=== PATIENT | female | born 1950 | race Caucasian/White ===

== ENCOUNTER 2023-06-16 12:45 | Emergency (ER) | payer MEDICARE, SELFPAY ==
[2023-06-16] VITALS (21 sets, daily range): BP systolic 178–190; BP diastolic 86–102; PULSE 85–108; RESP 13–31; TEMP 37; O2SAT 97–99; BMI 19.2
--- NOTE | 2023-06-16 13:08 | XR_ITS ---
The [address] [address] Patient Name: CRISTINA MOORE MRN: [id number] date: 1950 Sex: F Assigned Patient Location: ER Current Patient Location: ER Accession/Order Number: [id number] Exam Date: 06/16/2023 13:35 Report Date: 06/16/2023 13:57 At the request of: AKIN LONGORIA Procedure: XR chest 1V EXAM: XR chest 1V HISTORY: hypertension COMPARISON: None. TECHNIQUE: Single view of the chest FINDINGS: Left chest cardiac device and leads. Heart size normal. No focal consolidation, pleural effusion, pulmonary congestion or pneumothorax. Surgical clips projecting over the right chest. Multiple external leads. Spinal hardware. Atherosclerotic calcification of the aorta. XR/XR chest 1V IMPRESSION: No acute findings. Electronically authenticated by: VANESSA BYERS Date: 06/16/2023 13:57
--- NOTE | 2023-06-16 13:08 | ECG_ITS ---
The [facility] Test Date: 2023-06-16 Pat Name: CRISTINA MOORE Department: Room: - Gender: Female Client Service Coordinator: : 1950 Requested By: CHRISTA BARBOUR Order Number: [id number] Reading MD: SYL TODD Measurements Intervals [place] Rate: 104 P: 267 SD: 266 QRS: -6 QRSD: 84 T: 56 QT: 328 QTc: 389 Interpretive Statements Sinus tachycardia 2231 First degree AV block 6230 Left atrial enlargement 9150 abnormal ECG No previous ECG available for comparison Electronically Signed On 06-19-2023 7:12:16 EDT by SYL TODD
--- NOTE | 2023-06-16 13:08 | ED.GENADUL1 ---
Documented by User: BRYAN Martinez 06/16/23 15:14 HPI - General Adult General Chief complaint: Chest Pain Stated complaint: HIGH BLOOD PRESSURE- SENT BY DR. CORNELL Time Seen by Provider: 06/16/23 12:46 Source: patient and family Mode of arrival: Wheelchair Limitations: no limitations History of Present Illness HPI narrative: patient is a 72-year-old female presents to the Emergency Room with her at the request of her arthritis doctor for evaluation of hypertension. Patient states she chronically has hypertension. She reports no chest pain or shortness of breath, states she is agitated and does not even want to be here. Patient reports generalized body aches which are chronic for her. She reports been on medication for hypertension taking regularly, and sees family doctor locally for follow-up. She currently has no symptoms but given the elevated blood pressure at the arthritis doctors president and chief executive officer was recommended to come to the Emergency Room for evaluation and to have her hypertension treated if needed. Patient's sitting at bedside has no other concerns. Patient denies any headache or visual disturbance denies abdominal pain. Related Data Home Medications Medication Instructions Recorded Confirmed allopurinol 100 mg tablet 100 mg PO DAILY 06/16/23 06/16/23 buspirone 10 mg tablet 10 mg PO TID PRN anxiety 06/16/23 06/16/23 carvedilol 25 mg tablet 25 mg PO Q12H 06/16/23 06/16/23 doxazosin 1 mg tablet 1 mg PO DAILY 06/16/23 06/16/23 ferrous sulfate 325 mg (65 mg 325 mg PO DAILY 06/16/23 06/16/23 iron) tablet (FeroSul) folic acid 1 mg tablet 1 mg PO DAILY 06/16/23 06/16/23 hydralazine 25 mg tablet 25 mg PO Q8H 06/16/23 06/16/23 hydrocodone 10 mg-acetaminophen 2 tab PO Q6H 06/16/23 06/16/23 325 mg tablet hydroxychloroquine 200 mg tablet 200 mg PO DAILY 06/16/23 06/16/23 loratadine 10 mg tablet mg 06/16/23 megestrol 400 mg/10 mL (40 mg/mL) 400 mg PO DAILY 06/16/23 06/16/23 oral suspension mirtazapine 15 mg tablet 15 mg PO DAILY 06/16/23 06/16/23 montelukast 10 mg tablet 10 mg PO DAILY 06/16/23 06/16/23 nitroglycerin 0.3 mg sublingual 0.3 mg sublingual Q5M PRN chest 06/16/23 06/16/23 tablet pain ropinirole 4 mg tablet 4 mg PO DAILY 06/16/23 06/16/23 trazodone 50 mg tablet 50 mg PO BEDTIME 06/16/23 06/16/23 venlafaxine 37.5 mg 37.5 mg PO DAILY 06/16/23 06/16/23 capsule,extended release 24 hr Allergies Allergy/AdvReac Type Severity Reaction Status Date / Time Unable to Assess Allergy Verified 06/16/23 13:01 Review of Systems ROS Constitutional Denies: fever or chills Eyes Denies: change in vision Ears, nose, mouth, and throat Denies: throat pain or neck pain Cardiovascular Denies: chest pain Respiratory Denies: shortness of breath, cough or wheezing Gastrointestinal Denies: abdominal pain, nausea or vomiting Musculoskeletal Reports: joint pain Integumentary/Breast Denies: rash, itching or non-healing lesion Neurological Denies: headache Psychiatric Reports: other; Denies: anxiety or mood swings Hematologic/Lymphatic Denies: easy bruising Allergic/Immunologic Denies: hives PFSH PFSH Social History Smoking status: Former smoker Exam Narrative Exam Narrative: Nurses notes and vital signs reviewed and patient is not hypoxic. General: The patient much older than stated age. 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 Skin: Warm, dry, no pallor noted.bronzing noted of the lower extremities with minimal edema and chronic skin changes with likely peripheral vascular disease. Head: Normocephalic, atraumatic Neck: Supple, trachea mid-line, no tenderness, no lymphadenopathy Eye: Pupils are equal, round and reactive to light, EOMI, patient wearing glasses reports no visual disturbance Ears, Nose, Mouth, and Throat: external exam unremarkable Cardiovascular: Regular Rate and Rhythm Respiratory: Patient is in no distress, no accessory muscle use, lungs are clear to auscultation, no wheezing, rales or rhonchi. Chest Wall: no tenderness Back: non-tender, no CVA tenderness Musculoskeletal: normal ROM,generalized arthralgias. no swelling, no joint warmth or erythema GI: Normal bowel sounds, no tenderness to palpation, no masses appreciated. No rebound, guarding, or rigidity noted. Neurological: A&O x4 Psychiatric: Cooperative Constitutional Vital Signs, click to edit/add: Last Vital Signs Temp 98.6 F 06/16/23 12:57 Pulse 89 06/16/23 15:00 Resp 17 06/16/23 15:00 BP 182/86 H 06/16/23 15:13 Pulse Ox 99 06/16/23 15:10 O2 Del Method Room Air 06/16/23 13:44 Course Vital Signs Vital signs: Vital Signs Temperature 98.6 F 06/16/23 12:57 Pulse Rate 96 H 06/16/23 12:57 Respiratory Rate 16 06/16/23 12:57 Pulse Oximetry 99 06/16/23 12:57 Oxygen Delivery Method Room Air 06/16/23 12:57 Temperature 98.6 F 06/16/23 12:57 Pulse Rate 89 06/16/23 15:00 Respiratory Rate 17 06/16/23 15:00 Blood Pressure 182/86 H 06/16/23 15:13 Pulse Oximetry 99 06/16/23 15:10 Oxygen Delivery Method Room Air 06/16/23 13:44 Medical Decision Making MDM Narrative Medical decision making narrative: patient presents relatively asymptomatic for evaluation of hypertension Dr. Cornell- Cardiology, no report was given of how high her blood pressure was. Patient admits that she does not want to be here. She was agreeable to IV attempt but unsuccessful ?2 and patient only consenting to lab draw for analysis. Patient medications reviewed and she did not feel she took her mid-day hydralazine which was given at the bedside. Patient states she has chronic hypertension. Her laboratory studies were reviewed along with her chest x-ray, concerning for acute kidney injury. We did not have any immediate labs for comparison. We discussed her elevated potassium, creatinine, CK-MB and myoglobin along with anemia. Likely acute on chronic exacerbations. Discussed treatment options with attempt for IV access for IV fluid hydration, admission to our facility or transfer to a facility for nephrology evaluation and potential dialysis if needed. The patient adamantly refuses any further treatment or care stating that she would like to be discharged home. She verbalized a wish to be discharged home against medical advice. I discussed this personally with the patient's and her personal physician Dr. Toussaint at 3pm who recommended that she be admitted for IV fluids. The patient was made aware of his recommendations but still declined further treatment or admission. We discussed the patient's discharged against medical advice in layman's terms. The patient verbalizes understanding with the relevant information and medical advise presented for her care plan as noted above. The patient was furthermore able to appreciate the situation and the possible consequences while reasoning through the recommended treatment options for her care. Patient adamantly states she will never gone dialysis and is aware of the risk of aand disability. She would like to have a personal discussion with her family and her family doctor regarding DNR orders to reflect this wish. By communicating the patient's treatment plan and follow-up along with personal choices that may result in or disability patient verbalized that should she change her mind she would return to the Emergency Room for evaluation and treatment as discussed and offered, but respectively declined. Patient is alert and oriented ?4 and patient's at bedside supportive of her decision. Lab Data Labs: Lab Results 06/16/23 Range/Units 13:48 WBC 5.1 (4.0-11.0) 10^3/uL RBC 3.20 L (4.20-5.40) 10^6/uL Hgb 9.6 L (12.0-16.0) g/dL Hct 30.2 L (36.0-48.0) % MCV 94.4 (81.0-99.0) fL MCH 30.0 (26.7-34.0) pg MCHC 31.8 (29.9-35.2) g/dL RDW 15.5 H (11.0-15.0) % Plt Count 281 (150-450) 10^3/uL MPV 10.4 (9.5-13.5) fL Seg Neuts % (Manual) 86.0 Lymphocytes % (Manual) 11.0 L (20.5-60.0) % Monocytes % (Manual) 2.0 (1.7-12.0) % Eosinophils % (Manual) 0.0 L (0.9-7.0) % Basophils % (Manual) 1.0 (0.2-2.0) % Neutrophils # (Manual) 4.38 (1.4-6.5) 10^3/uL Lymphocytes # (Manual) 0.56 L (1.20-3.80) 10^3/uL Monocytes # (Manual) 0.10 L (0.30-0.80) 10^3/uL Eosinophils # (Manual) 0.00 (0.00-0.70) 10^3/uL Basophils # (Manual) 0.05 (0.00-0.10) 10^3/uL Anisocytosis 1+ PT 9.8 (9.0-11.6) sec INR <0.93 APTT 25.6 (22.3-36.2) sec Sodium 140 (136-145) mmol/L Potassium 5.8 H (3.5-5.1) mmol/L Chloride 107 (98-107) mmol/L Carbon Dioxide 16.9 L (21.0-32.0) mmol/L Anion Gap 21.9 BUN 79.0 H* (7.0-18.0) mg/dL Creatinine 3.19 H (0.55-1.02) mg/dL Est GFR ( Amer) 17 L (>=60) Est GFR (Non-Af Amer) 14 L (>=60) BUN/Creatinine Ratio 24.8 Glucose 106 (74-106) mg/dL Calcium 8.4 L (8.5-10.1) mg/dL Total Bilirubin 0.4 (0.2-1.0) mg/dL AST 23 (15-37) U/L ALT 29 (14-59) U/L Alkaline Phosphatase 92 (46-116) U/L CK-MB (CK-2) 4.74 H* (<=3.60) ng/mL Myoglobin 211 H (9-82) ng/mL Troponin I High Sens 16.2 (4.0-51.3) pg/mL Total Protein 6.9 (6.4-8.2) g/dL Albumin 3.9 (3.4-5.0) g/dL Globulin 3.0 g/dL Albumin/Globulin Ratio 1.3 TSH 1.856 (0.358-3.740) uIU/mL Imaging Data Chest x-ray: Radiologist's impression: At the request of: AKIN LONGORIA Procedure: XR chest 1V EXAM: XR chest 1V HISTORY: hypertension COMPARISON: None. TECHNIQUE: Single view of the chest FINDINGS: Left chest cardiac device and leads. Heart size normal. No focal consolidation, pleural effusion, pulmonary congestion or pneumothorax. Surgical clips projecting over the right chest. Multiple external leads. Spinal hardware. Atherosclerotic calcification of the aorta. IMPRESSION: No acute findings. Electronically authenticated by: VANESSA BYERS Date: 06/16/2023 13:57 Discharge Plan Discharge Chief Complaint: Chest Pain Clinical Impression: Left against medical advice, Acute renal failure, Hypertension, Serum potassium elevated Patient Disposition: Home, Self-Care Time of Disposition Decision: 15:06 Condition: Serious Mode of Transportation: Private Vehicle Prescriptions / Home Meds: No Action allopurinol 100 mg tablet 100 mg PO DAILY buspirone 10 mg tablet 10 mg PO TID PRN (Reason: anxiety) carvedilol 25 mg tablet 25 mg PO Q12H doxazosin 1 mg tablet 1 mg PO DAILY ferrous sulfate [FeroSul] 325 mg (65 mg iron) tablet 325 mg PO DAILY folic acid 1 mg tablet 1 mg PO DAILY hydralazine 25 mg tablet 25 mg PO Q8H hydrocodone-acetaminophen 10-325 mg tablet 2 tab PO Q6H hydroxychloroquine 200 mg tablet 200 mg PO DAILY megestrol 400 mg/10 mL (40 mg/mL) suspension 400 mg PO DAILY loratadine 10 mg tablet mirtazapine 15 mg tablet 15 mg PO DAILY montelukast 10 mg tablet 10 mg PO DAILY nitroglycerin 0.3 mg tablet, sublingual 0.3 mg sublingual Q5M PRN (Reason: chest pain) ropinirole 4 mg tablet 4 mg PO DAILY venlafaxine 37.5 mg capsule,extended release 24hr 37.5 mg PO DAILY trazodone 50 mg tablet 50 mg PO BEDTIME Instructions: Acute Kidney Injury (DC), Hypertension (ED) Additional Instructions: Per Dr. Toussaint please contact his office Monday to discuss follow-up plans patient declines further treatment here today or admission or transfer to tertiary facility for renal evaluation and patient signed out for discharged against medical advice Stand Alone Forms: Portal Instructions Referrals: CHRISTA TOUSSAINT [Primary Care Provider] - As soon as possible Discharge Date/Time: 06/16/23 15:16 Documented by User: Ginny Bardales MD 06/16/23 16:37 HPI - General Adult General Chief complaint: Chest Pain Stated complaint: HIGH BLOOD PRESSURE- SENT BY DR. CORNELL Time Seen by Provider: 06/16/23 12:46 Related Data Home Medications Medication Instructions Recorded Confirmed allopurinol 100 mg tablet 100 mg PO DAILY 06/16/23 06/16/23 buspirone 10 mg tablet 10 mg PO TID PRN anxiety 06/16/23 06/16/23 carvedilol 25 mg tablet 25 mg PO Q12H 06/16/23 06/16/23 doxazosin 1 mg tablet 1 mg PO DAILY 06/16/23 06/16/23 ferrous sulfate 325 mg (65 mg 325 mg PO DAILY 06/16/23 06/16/23 iron) tablet (FeroSul) folic acid 1 mg tablet 1 mg PO DAILY 06/16/23 06/16/23 hydralazine 25 mg tablet 25 mg PO Q8H 06/16/23 06/16/23 hydrocodone 10 mg-acetaminophen 2 tab PO Q6H 06/16/23 06/16/23 325 mg tablet hydroxychloroquine 200 mg tablet 200 mg PO DAILY 06/16/23 06/16/23 loratadine 10 mg tablet mg 06/16/23 megestrol 400 mg/10 mL (40 mg/mL) 400 mg PO DAILY 06/16/23 06/16/23 oral suspension mirtazapine 15 mg tablet 15 mg PO DAILY 06/16/23 06/16/23 montelukast 10 mg tablet 10 mg PO DAILY 06/16/23 06/16/23 nitroglycerin 0.3 mg sublingual 0.3 mg sublingual Q5M PRN chest 06/16/23 06/16/23 tablet pain ropinirole 4 mg tablet 4 mg PO DAILY 06/16/23 06/16/23 trazodone 50 mg tablet 50 mg PO BEDTIME 06/16/23 06/16/23 venlafaxine 37.5 mg 37.5 mg PO DAILY 06/16/23 06/16/23 capsule,extended release 24 hr Allergies Allergy/AdvReac Type Severity Reaction Status Date / Time Unable to Assess Allergy Verified 06/16/23 13:01 [facility] Social History Smoking status: Former smoker Exam Constitutional Vital Signs, click to edit/add: Last Vital Signs Temp 98.6 F 06/16/23 12:57 Pulse 89 06/16/23 15:00 Resp 17 06/16/23 15:00 BP 182/86 H 06/16/23 15:13 Pulse Ox 99 06/16/23 15:10 O2 Del Method Room Air 06/16/23 13:44 Course Vital Signs Vital signs: Vital Signs Temperature 98.6 F 06/16/23 12:57 Pulse Rate 96 H 06/16/23 12:57 Respiratory Rate 16 06/16/23 12:57 Pulse Oximetry 99 06/16/23 12:57 Oxygen Delivery Method Room Air 06/16/23 12:57 Temperature 98.6 F 06/16/23 12:57 Pulse Rate 89 06/16/23 15:00 Respiratory Rate 17 06/16/23 15:00 Blood Pressure 182/86 H 06/16/23 15:13 Pulse Oximetry 99 06/16/23 15:10 Oxygen Delivery Method Room Air 06/16/23 13:44 Medical Decision Making MDM Narrative Medical decision making narrative: patient presents relatively asymptomatic for evaluation of hypertension Dr. Cornell- Cardiology, no report was given of how high her blood pressure was. Patient admits that she does not want to be here. She was agreeable to IV attempt but unsuccessful ?2 and patient only consenting to lab draw for analysis. Patient medications reviewed and she did not feel she took her mid-day hydralazine which was given at the bedside. Patient states she has chronic hypertension. Her laboratory studies were reviewed along with her chest x-ray, concerning for acute kidney injury. We did not have any immediate labs for comparison. We discussed her elevated potassium, creatinine, CK-MB and myoglobin along with anemia. Likely acute on chronic exacerbations. Discussed treatment options with attempt for IV access for IV fluid hydration, admission to our facility or transfer to a facility for nephrology evaluation and potential dialysis if needed. The patient adamantly refuses any further treatment or care stating that she would like to be discharged home. She verbalized a wish to be discharged home against medical advice. I discussed this personally with the patient's and her personal physician Dr. Toussaint at 3pm who recommended that she be admitted for IV fluids. The patient was made aware of his recommendations but still declined further treatment or admission. We discussed the patient's discharged against medical advice in layman's terms. The patient verbalizes understanding with the relevant information and medical advise presented for her care plan as noted above. The patient was furthermore able to appreciate the situation and the possible consequences while reasoning through the recommended treatment options for her care. Patient adamantly states she will never gone dialysis and is aware of the risk of and disability. She would like to have a personal discussion with her family and her family doctor regarding DNR orders to reflect this wish. By communicating the patient's treatment plan and follow-up along with personal choices that may result in or disability patient verbalized that should she change her mind she would return to the Emergency Room for evaluation and treatment as discussed and offered, but respectively declined. Patient is alert and oriented ?4 and patient's at bedside supportive of her decision. Attending physician attestation I have seen and evaluated this patient. I have reviewed the mid-level provider?s documentation medical decision making and treatment plan. I agree with the mid-level provider?s assessment, and plan. I discussed with patient the need to be hospitalized. She stated she has seen a engineering systems analyst in the past but Dr. Toussaint is managing her chronic renal failure. Advised the patient she needs to be hospitalized for slow IV hydration and needs to be seen by a engineering systems analyst so we would have to transfer her to another facility where there is a engineering systems analyst available. Patient stated that she did not want to be transferred 20 facility and did not want to see a engineering systems analyst she does not want to be on dialysis. The patient what is her code status she stated she is a full code. I advised patient she would be a full code but no dialysis. She stated she needed more time to think about the code status with the family. I advised the patient I would be to no prior to admitting her here for IV hydration to see if there would be any improvement in her blood pressure and kidney function test and potassium level which she stated that she was not going to be hospitalized today and that she was going to leave. I advised the patient if she left the hospital without any treatment and has seen a specialist she could suffer permanent disability and . The patient stated she is willing to take that risk because she does not want to be hospitalized and she wants to leave right now. I advised the patient that she would have to leave against medical advice she left currently without any treatment or admission. This was discussed with the at the bedside. And this was discussed with Dr. Johnson who will also see the patient as an outpatient. I advised the patient and to return if she changes her mind. Patient left the emergency department after signing the AGAINST MEDICAL ADVICE paperwork with gratitude. Medical Records Medical records reviewed: Yes I reviewed the patient's medical records Lab Data Lab results reviewed: Yes I reviewed the patient's lab results Labs: Lab Results 06/16/23 Range/Units 13:48 WBC 5.1 (4.0-11.0) 10^3/uL RBC 3.20 L (4.20-5.40) 10^6/uL Hgb 9.6 L (12.0-16.0) g/dL Hct 30.2 L (36.0-48.0) % MCV 94.4 (81.0-99.0) fL MCH 30.0 (26.7-34.0) pg MCHC 31.8 (29.9-35.2) g/dL RDW 15.5 H (11.0-15.0) % Plt Count 281 (150-450) 10^3/uL MPV 10.4 (9.5-13.5) fL Seg Neuts % (Manual) 86.0 Lymphocytes % (Manual) 11.0 L (20.5-60.0) % Monocytes % (Manual) 2.0 (1.7-12.0) % Eosinophils % (Manual) 0.0 L (0.9-7.0) % Basophils % (Manual) 1.0 (0.2-2.0) % Neutrophils # (Manual) 4.38 (1.4-6.5) 10^3/uL Lymphocytes # (Manual) 0.56 L (1.20-3.80) 10^3/uL Monocytes # (Manual) 0.10 L (0.30-0.80) 10^3/uL Eosinophils # (Manual) 0.00 (0.00-0.70) 10^3/uL Basophils # (Manual) 0.05 (0.00-0.10) 10^3/uL Anisocytosis 1+ PT 9.8 (9.0-11.6) sec INR <0.93 APTT 25.6 (22.3-36.2) sec Sodium 140 (136-145) mmol/L Potassium 5.8 H (3.5-5.1) mmol/L Chloride 107 (98-107) mmol/L Carbon Dioxide 16.9 L (21.0-32.0) mmol/L Anion Gap 21.9 BUN 79.0 H* (7.0-18.0) mg/dL Creatinine 3.19 H (0.55-1.02) mg/dL Est GFR ( Amer) 17 L (>=60) Est GFR (Non-Af Amer) 14 L (>=60) BUN/Creatinine Ratio 24.8 Glucose 106 (74-106) mg/dL Calcium 8.4 L (8.5-10.1) mg/dL Total Bilirubin 0.4 (0.2-1.0) mg/dL AST 23 (15-37) U/L ALT 29 (14-59) U/L Alkaline Phosphatase 92 (46-116) U/L CK-MB (CK-2) 4.74 H* (<=3.60) ng/mL Myoglobin 211 H (9-82) ng/mL Troponin I High Sens 16.2 (4.0-51.3) pg/mL Total Protein 6.9 (6.4-8.2) g/dL Albumin 3.9 (3.4-5.0) g/dL Globulin 3.0 g/dL Albumin/Globulin Ratio 1.3 TSH 1.856 (0.358-3.740) uIU/mL Discharge Plan Discharge Chief Complaint: Chest Pain Clinical Impression: Left against medical advice, Acute renal failure, Hypertension, Serum potassium elevated Patient Disposition: Home, Self-Care Time of Disposition Decision: 15:06 Condition: Serious Mode of Transportation: Private Vehicle Prescriptions / Home Meds: No Action allopurinol 100 mg tablet 100 mg PO DAILY buspirone 10 mg tablet 10 mg PO TID PRN (Reason: anxiety) carvedilol 25 mg tablet 25 mg PO Q12H doxazosin 1 mg tablet 1 mg PO DAILY ferrous sulfate [FeroSul] 325 mg (65 mg iron) tablet 325 mg PO DAILY folic acid 1 mg tablet 1 mg PO DAILY hydralazine 25 mg tablet 25 mg PO Q8H hydrocodone-acetaminophen 10-325 mg tablet 2 tab PO Q6H hydroxychloroquine 200 mg tablet 200 mg PO DAILY megestrol 400 mg/10 mL (40 mg/mL) suspension 400 mg PO DAILY loratadine 10 mg tablet mirtazapine 15 mg tablet 15 mg PO DAILY montelukast 10 mg tablet 10 mg PO DAILY nitroglycerin 0.3 mg tablet, sublingual 0.3 mg sublingual Q5M PRN (Reason: chest pain) ropinirole 4 mg tablet 4 mg PO DAILY venlafaxine 37.5 mg capsule,extended release 24hr 37.5 mg PO DAILY trazodone 50 mg tablet 50 mg PO BEDTIME Instructions: Acute Kidney Injury (DC), Hypertension (ED) Additional Instructions: Per Dr. Toussaint please contact his office Monday to discuss follow-up plans patient declines further treatment here today or admission or transfer to tertiary facility for renal evaluation and patient signed out for discharged against medical advice Stand Alone Forms: Portal Instructions Referrals: CHRISTA TOUSSAINT [Primary Care Provider] - As soon as possible Discharge Date/Time: 06/16/23 15:16
[2023-06-16 13:54] LABS: Hematocrit 30.2 % (36.0-48.0); Hemoglobin 9.6 g/dL (12.0-16.0); Mean Corpuscular HGB Conc 31.8 g/dL (29.9-35.2); Mean Corpuscular Volume 94.4 fL (81.0-99.0); Mean Platelet Volume 10.4 fL (9.5-13.5); Platelet Count 281 10^3/uL (150-450); Red Cell Distribution Width 15.5 % (11.0-15.0); White Blood Count 5.1 10^3/uL (4.0-11.0)
[2023-06-16 14:18] LABS: Segmented Neut Absolute Manual 4.38 10^3/uL (1.4-6.5)
[2023-06-16 14:19] LABS: Anisocytosis 1+; Basophils Abs Manual 0.05 10^3/uL (0.00-0.10); Lymphocytes Absolute Manual 0.56 10^3/uL (1.20-3.80); Partial Thromboplastin Time 25.6 sec (22.3-36.2); Prothrombin Time 9.8 sec (9.0-11.6)
[2023-06-16 14:20] LABS: INR <0.93
[2023-06-16 14:22] LABS: Myoglobin 211 ng/mL (9-82)
[2023-06-16 14:23] LABS: Alanine Aminotransferase 29 U/L (14-59); Albumin Globulin Ratio 1.3; Albumin Level 3.9 g/dL (3.4-5.0); Alkaline Phosphatase 92 U/L (46-116); Anion Gap 21.9; Aspartate Amino Transferase 23 U/L (15-37); BUN Creatinine Ratio 24.8; Bilirubin Total 0.4 mg/dL (0.2-1.0); Calcium 8.4 mg/dL (8.5-10.1); Carbon Dioxide 16.9 mmol/L (21.0-32.0); Chloride 107 mmol/L (98-107); Estimated GFR (African America 17 (>=60); Estimated GFR (Non-African Ame 14 (>=60); Glucose 106 mg/dL (74-106); Potassium 5.8 mmol/L (3.5-5.1); Sodium 140 mmol/L (136-145); Thyroid Stimulating Hormone 1.856 uIU/mL (0.358-3.740); Total Protein 6.9 g/dL (6.4-8.2); Troponin I High Sensitivity 16.2 pg/mL (4.0-51.3)
[2023-06-16 14:34] LABS: Creatine Kinase MB 4.74 ng/mL (<=3.60)
[2023-06-16] MEDS: HYDRALAZINE HCL 25 MG TABLET PO (14:56)
== END 2023-06-16 15:16 | disposition left against medical advice (07) ==
PROVIDERS: Personal Emergency Response Attendant; Emergency Provider Emergency Medicine; PCP Internal Medicine
DX: I10 Essential (primary) hypertension (principal); N17.9 Acute kidney failure, unspecified; E87.5 Hyperkalemia; Z87.891 Personal history of nicotine dependence; Z53.29 Procedure and treatment not carried out because of patient's decision for other reasons; Z79.899 Other long term (current) drug therapy
CPT/HCPCS: 36415; 71045; 80053; 82553; 83874; 84443; 84484; 85027; 85610; 85730; 93005; 99285

== ENCOUNTER 2023-09-04 07:29 | Outpatient (RCR) | payer MEDICARE, SELFPAY ==
[2023-08-28 11:02] LABS: Hematocrit 28.6 % (36.0-48.0); Mean Corpuscular HGB Conc 31.5 g/dL (29.9-35.2); Mean Corpuscular Hemoglobin 30.2 pg (26.7-34.0); Mean Platelet Volume 10.4 fL (9.5-13.5); Platelet Count 222 10^3/uL (150-450); Red Blood Count 2.98 10^6/uL (4.20-5.40); Red Cell Distribution Width 14.2 % (11.0-15.0); White Blood Count 6.8 10^3/uL (4.0-11.0)
[2023-08-28 11:18] VITALS: BP 118/72; PULSE 102; RESP 20; TEMP 37.1; O2SAT 96
--- NOTE | 2023-08-28 11:27 | PC.NURSE ---
1033: Pt. to [facility] via w/c. Dropped off by daughter. Assisted pt. to chair. VSS. IV initiated to left forearm on first attempt without difficulty. Blood drawn from IV for ordered labs. Pt. tolerated with min. c/o. 1047: IV Injectafer initiated as ordered. Pt. without needs or c/o. 1113: IV Injectafer completed without s&s of adverse reaction. IV d/c'd, pressure to site. Pt. requests to remain in dept. Daughter unable to pick pt. up until noon. Pt given blanket and pillow for comfort. Denies needs.
[2023-08-28 11:56] LABS: Albumin Level 3.7 g/dL (3.4-5.0); Anion Gap 15.6; BUN Creatinine Ratio 23.5; Calcium 7.8 mg/dL (8.5-10.1); Carbon Dioxide 24.7 mmol/L (21.0-32.0); Chloride 105 mmol/L (98-107); Estimated GFR (African America 18 (>=60); Estimated GFR (Non-African Ame 14 (>=60); Glucose 133 mg/dL (74-106); Phosphorus 5.4 mg/dL (2.6-4.7); Potassium 4.3 mmol/L (3.5-5.1); Sodium 141 mmol/L (136-145)
[2023-08-28 12:13] LABS: Percent Iron Saturation 37.3 %
[2023-09-04 11:35] VITALS: BP 188/90; PULSE 88; RESP 20; TEMP 36.7; O2SAT 96
--- NOTE | 2023-09-04 13:20 | PC.NURSE ---
1050: Pt to [facility] via w/c accompanied by family. Assisted into recliner. Pt. relays feeling slightly nauseated today. Denies dyspnea or pain. BP elevated. Pt. relays taking scheduled BP med. #24 gauge IV initiated to left forearm on second attempt. Flushes easily without redness or edema. Pt. tolerates with min. c/o discomfort. 1055: IV Injectafer initiated at this time. Pt. given warm blanket. Declines beverage or snack. 1125: Injectafer infusion complete without s&s of adverse reaction. IV to SLF. Relays urgent need for bathroom. Taken to bathroom via w/c. 1130: Returns to room via w/c. IV d/c'd, pressure to site. Tolerated without c/o. 1135: D/c'd via w/c to car and home with family member.
== END 2023-09-05 23:59 | disposition home or self-care (01) ==
LOC: INF 07:29
PROVIDERS: PCP Internal Medicine; Visit Provider Internal Medicine
DX: I12.9 Hypertensive chronic kidney disease with stage 1 through stage 4 chronic kidney disease, or unspecified chronic kidney disease (principal); D63.1 Anemia in chronic kidney disease; N18.4 Chronic kidney disease, stage 4 (severe); N25.81 Secondary hyperparathyroidism of renal origin; M10.9 Gout, unspecified
CPT/HCPCS: 36415; 80069; 82728; 83540; 83550; 85027; 96365; J1439

== ENCOUNTER 2023-11-29 15:03 | Outpatient (OUT) | payer MEDICARE, SELFPAY ==
--- OUTSIDE RECORDS SUMMARY | 2023-11-29 15:10 | XMS_ITS | CCD ---
Author Name Unknown Address [address] [place] [address] Organization [facility] Care Team Providers [facility] Director Name Role Phone SO WHARTON Unavailable Unavailable ELDON TOUSSAINT Unavailable Unavailable ELDON TOUSSAINT Primary Care Unavailable MARCOS RAHMAN Referring Unavailable Rex Mckee Attending Unavailable Rex Mckee Admitting Unavailable ME Procedure Practitioner Unavailab LUIS ALBERTO Licea Surgeon Unavailable Unavailable Primary Care Provider Unavailabl e NO FAMILY, PHYSICIAN Primary Care Provider Unava ilable MD Pal Frank Attending Provider DR SARAH MEEHAN Consulting Unavailable NORBERT, DR GOODWIN Primary Care Unavailable HEMMER, DR CROW Thomas Attending Unavailable HEMDANIELA, DR CROW Thomas Admitting Unavailable HEMMER, DR CROW Thomas Consulting Unavailable TANYA TAYLOR Admitting Unavailable NEWTON, DR CHERRY Landa Consulting Unavailable NORBERT, DR GOODWIN Primary Care Unavailable TANYA TAYLOR Attending Unavailable TANYA TAYLOR Consulting Unavailable NO FAMILY, PHYSICIAN Primary Care Provider Unava ilMD Pal Jennings Attending Provider [phone] CARSON CORNELL Attending Unavailable MILENA THOMPSON Referring Unavailable MD Manan Acevedo Attending Provider RICHARD Toussaint Primary Care Provider Manan Acevedo Unavailable MD Manan Acevedo Attending Provider RICHARD Toussaint Primary Care Provider [phone] Erica Gross Unavailable Brodie Womack Unavailable RICHARD Toussaint Primary Care Provider [phone] MD Manan Acevedo Attending Provider MD Brodie Womack Attending Provider Kristina, Manan Admitting Unavailable Kristina, Manan Attending Unavailable Norbert Eldon Primary Care Unavailable Kristina, Manan Admitting Unavailable Kristina, Manan Attending Unavailable Eldon Toussaint Primary Care Unavailable Brodie Womack Attending Unavailable Eldon Toussaint Primary Care Unavailable Brodie Womack Admitting Unavailable Pal Frank Admitting Unavailable Pal Frank Attending Unavailable NO FAMILY, PHYSICIAN Primary Care Unavailable Kristina, Manan Admitting Unavailable Kristina, Manan Attending Unavailable Norbert Eldon Primary Care Unavailable CROW WILEY Attending Unavailable Allergies Allergy Classification Reported Allergen(s) Allergy Type Date of Onset Reaction(s) Facility (2 sources) Acetaminophen / oxyCODONE Drug Allergy 04-11-20 19 [facility] (2 sources) Bacitracin / Neomycin / Polymyxin B Drug Allergy 04-11-20 19 [facility] (7 sources) Coconut extract; Translations: [Unknown] Drug Allergy 11-25-19 12 Unknown [facility] (7 sources) Desonide Drug Allergy 03-15-20 19 Unknown [facility] (2 sources) Latex Drug allergy (disorder) 04-11-20 19 [facility] (2 sources) Morphine Drug Allergy 04-11-20 19 [facility] (2 sources) Sulfonamides (Antibiotic) Drug allergy (disorder) 09-16-20 09 [facility] (2 sources) venom-honey bee Drug allergy (disorder) 04-11-20 19 [facility] (2 sources) Iodinated Contrast Media - IV Dye Drug allergy (disorder) 09-16-20 09 [facility] (10 sources) Contrast media Propensity to adverse reactions to drug 10-11-20 14 Other: See Comments [facility] (4 sources) Iodine; Translations: [IODINE] Drug Allergy 10-11-20 14 Other: See Comments [facility] (3 sources) natural latex rubber Propensity to adverse reactions to drug 10-14-20 14 Other: See Comments [facility] (9 sources) gabapentin; Translations: [Gabapentin] Drug Allergy 08-23-20 20 Hives [facility] (7 sources) Sulfamethoxazole Drug Allergy 08-23-20 Unknown Reaction [facility] (7 sources) Trimethoprim Drug Allergy 08-23-20 Unknown Reaction [facility] (1 source) Iodine Drug Allergy [facility] (1 source) Baclofen; Translations: [BACLOFEN] Drug Allergy 06-16-20 [facility] (1 source) Sulfamethoxazole / Trimethoprim; Translations: [SULFAMETHOXAZOLE-T RIMETHOPRIM] Drug Allergy 11-11-19 [facility] (1 source) COCONUT FLAVOR; Translations: [COCONUT FLAVOR] Propensity to adverse reactions to drug (disorder) 11-11-19 [facility] (10 sources) Contrast media Propensity to adverse reactions Unknown [employer] Other (5 sources) Sulfonamides (Antibiotic) Propensity to adverse reactions Unknown [employer] Other (5 sources) Adhesive agent Drug allergy Unknown [employer] Other (5 sources) Coconut Oil Drug Allergy Unknown [employer] Other (5 sources) Substance with sulfonamide structure and antibacterial mechanism of action (substance) Drug allergy Unknown [employer] Other Medications Current Medications Medication Drug Class(es) Dates Sig (Normalized) Sig (Original) acetaminophen 325 mg / HYDROcodone bitartrate 10 mg oral tablet (20 sources) Opioid Agonist Start: 08-23-2020 take 2 tablets by mouth every eight hours Hydrocodone-Aceta minophen Active 2 TAB PO Every 8 hours August 22, 2020 11:00pm Start: 08-05-2020 End: 08-14-2020 take 2 tablets by mouth every six hours Hydrocodone-Acetaminophen Discontinued 2 TAB PO Q6H August 04, 2020 11:00pm August 14, 2020 9:10pm Start: 04-02-2019 End: 08-05-2020 take 2 tablets by mouth every five hours Hydrocodone-Acetaminophen (Vicodin Hp) 10-300 mg Tablet Discontinued 2 TAB PO Q5H 0 April 03, 2019 2:56pm August 05, 2020 10:15pm take 2 tablets by mo [facility] every six hours as needed HYDROcodone-acetaminophen (NORCO) 5-325 mg per tablet Take 2 tablets by mouth every 6 hours as needed. 0 Active Comment on above: Take 2 tablets by mo ut every 6 hours as needed. allopurinol 100 mg oral tablet (20 sources) Xanthine Oxidase Inhibitor Start: 10-15-20 14 take 100 mg by mouth once daily Allopurinol Active 100 MG PO Daily April 01, 2019 11:00pm Comment on above: Take 1 tablet by [facility] once daily. Aspir-81 81 MG (10 sources) take 1 tablet by mouth once daily Aspir-81 81 MG 1 tablet Orally Once a day for 30 day(s) Active black cohosh extract 40 mg oral capsule (10 sources) Black Cohosh 40 MG as directed Orally Active 24 hr buPROPion hydrochloride 150 mg extended release oral tablet (17 sources) Aminoketone Start: 04-02-20 19 take 150 mg by mouth once daily at breakfast Bupropion Hcl Active 150 MG PO Daily with breakfast April 01, 2019 11:00pm take 2 tablets by [facility] every twelve hours buPROPion HCl 75 MG 2 tablets Orally Twi ce a day Active busPIRone hydrochloride 10 mg oral tablet (20 sources) Start: 04-02-2019 take 10 mg by mouth twice daily at mealtime Buspirone Active 10 MG PO Twice daily with meals April 01, 2019 11:00pm Start: 10-15-2014 busPIRone (BUS PAR) 10 mg tablet Take 5-10 mg TID prn for anxiety 0 10/15/2014 Active Comment on above: Take 5-10 mg TID prn for anxiety calcium carbonate 500 mg chewable tablet (7 sources) Start: 09-07-20 23 take 1 tablet by mouth three times daily at mealtime Tums 500 MG 1 tablet Orally TID with meal for 90 days Sep, Active 12 hr carBAMazepine 300 mg extended release oral capsule (17 sources) Mood Stabilizer Start: 08-05-20 20 take 300 mg by mouth twice daily at mealtime Carbamazepine Active 300 MG PO Twice daily with meals August 04, 2020 11:00pm Centrum Silver - (10 sources) Centrum Silver - as directed Orally Active chlorthalidone 25 mg oral tablet (17 sources) Thiazide-like Diuretic Start: 08-18-20 take 12.5 mg by mouth once daily in the morning Chlorthalidone Active 12.5 MG PO Every morning August 17, 2020 11:00pm take 0.5 tablet by m outh once daily at mealtime Chlorthalidone 25 MG 1/2 tablet in the morning with food Orally Once a day Active cholecalciferol 0.025 mg oral capsule (10 sources) Vitamin D take 2 capsules by m outh every twenty-four hours Vitamin D3 1000 UNIT 2 capsules Orally Once a day for 30 day(s) Active take 2 capsules by m outh every twenty-four hours Vitamin D3 1000 UNIT 2 capsules Orally Once a day for 30 day(s) Active cloNIDine hydrochloride 0.1 mg oral tablet (20 sources) Central alpha-2 Adrenergic Agonist Start: 04-02-2019 End: 04-02-2019 take 1 tablet by mouth once daily at bedtime Clonidine Hcl (Catapres) 0.1 mg Tablet Active 0.1 MG PO Daily at bedtime April 01, 2019 11:00pm take 1 tablet by [facility] every twelve hours cloNIDine HCl 0.1 MG 1 tablet at bedtime Orally Twice a day for 30 day(s) Active take 1 tablet by mouth three [place]en[place] es daily cloNIDine HCl (CATAPRES) 0.1 mg tablet Take 0.1 mg by mouth three times daily. 0 Active Comment on above: Take 0.1 mg by mouth three times daily. colchicine 0.6 mg oral tablet (10 sources) take 1 tablet by mouth every twenty-four hours Colchicine 0.6 MG 1 tablet Orally Once a day for 30 day(s) Active 24 hr dilTIAZem hydrochloride 360 mg extended release oral capsule (20 sources) Calcium Channel Jon Start: 08-06-2020 take 1 capsule by mouth once daily, then take 1 capsule by mouth every twenty-four hours Diltiazem Hcl (Cardizem Cd) 360 mg Capsule,Extended Release 24hr Active 360 MG PO Daily August 05, 2020 11:00pm Start: 04-02-2019 End: 08-06-2020 take 240 mg by mouth once daily Diltiazem Hcl Discontinued 240 MG PO Daily April 01, 2019 11:00pm August 06, 2020 12:27am 15 ml ferric carboxymaltose 50 mg/ml injection (3 sources) Start: 08-17-2023 Injectafer 750 MG/15ML as directed Intravenous Aug, Active ferrous sulfate 325 mg oral tablet (17 sources) Start: 08-05-2020 take 325 mg by mouth twice daily Ferrous Sulfate Active 325 MG PO Twice daily August 04, 2020 11:00pm hydroxychloroquine sulfate 200 mg oral tablet (11 sources) Antimalarial, Antirheumatic Agent Start: 10-25-2023 Hydroxychloroquine Active MG PO October 25, 2023 12:00am take 1 tablet by [facility] th every twenty-four hours Hydroxychloroquine Sulfate 200 MG 1 tabl et with food or milk Orally Once a day for 10 day(s) Active 10 ml iron sucrose 20 mg/ml injection (1 source) Parenteral Iron Replacement Start: 08-29-2023 Venofer 20 MG/ML as directed Intravenous Aug, Active 24 hr isosorbide mononitrate 60 mg extended release oral tablet (20 sources) Nitrate Vasodilator Start: 08-06-2020 take 60 mg by mouth once daily Isosorbide Mononitrate Active 60 MG PO Daily August 05, 2020 11:00pm Start: 04-02-2019 End: 08-05-2020 take 30 mg by mouth once daily Isosorbide Mononitrate Discontinued 30 MG PO Daily April 01, 2019 11:00pm August 05, 2020 10:15pm leflunomide 20 mg oral tablet (17 sources) Antirheumatic Agent Start: 08-05-2020 take 20 mg by mouth once daily at bedtime Leflunomide Active 20 MG PO Daily at bedtime August 04, 2020 11:00pm loratadine 10 mg oral tablet (20 sources) Start: 04-02-2019 End: 08-05-2020 take 10 mg by mouth once daily Loratadine Active 10 MG PO Daily August 05, 2020 11:00pm metoclopramide 10 mg oral tablet (17 sources) Dopamine-2 Receptor Antagonist Start: 08-06-2020 take 10 mg by mouth twice daily Metoclopramide Hcl Active 10 MG PO Twice daily August 05, 2020 11:00pm montelukast 10 mg oral tablet (17 sources) Leukotriene Receptor Antagonist Start: 08-06-2020 take 1 tablet by mouth once daily Montelukast (Singulair) 10 mg Tablet Active 10 MG PO Daily August 05, 2020 11:00pm nitroglycerin 0.3 mg sublingual tablet (17 sources) Nitrate Vasodilator Start: 08-05-2020 Nitroglycerin Active 0.3 MG SUBLINGUAL EVERY 5 MINUTES August 04, 2020 11:00pm Nitroglycerin 0. 3 MG as directed Sublingual Every 5 minutes as needed for chest pain Active ondansetron 4 mg oral tablet (17 sources) Serotonin-3 Receptor Antagonist Start: 08-06-2020 take 1 tablet by mouth every eight hours Ondansetron Hcl (Zofran) 4 mg Tablet Active 4 MG PO Q8H August 05, 2020 11:00pm rOPINIRole 4 mg oral tablet (18 sources) Nonergot Dopamine Agonist Start: 10-25-2023 take 4 mg by mouth once daily Ropinirole Active 4 MG PO Daily October 25, 2023 12:00am Start: 08-06-2020 End: 08-09-2020 take 2 mg by mouth three times daily Ropinirole (Requip Xl) 2 mg Tablet Extended Release 24 Hr Discontinued 4 MG PO Three times daily August 05, 2020 11:00pm August 09, 2020 7:50am sodium bicarbonate 650 mg oral tablet (18 sources) Start: 10-25-2023 take 650 mg by mouth twice daily Sodium Bicarbonate Active 650 MG PO Twice daily October 25, 2023 12:00am Start: 08-17-2023 take 1 tablet by [facility] every twelve hours Sodium Bicarbonate 650 MG 1 Tablet Orally bid for 90 days Aug, Active Start: 04-03-2019 End: 08-05-2020 take 650 mg by mouth twice daily Sodium Bicarbonate Discontinued 650 MG PO Twice daily 60 April 02, 2019 11:00pm August 05, 2020 10:15pm [place] [address] mg powder for oral suspension (11 sources) Start: 10-25-2023 Sodium Zirconi um Cyclosilicate (Lokelma) 10 gram powder in packet Active 10 GM PO Daily October 25, 2023 12:00am Start: 08-17-2023 take 1 dose by mouth once junior y Lokelma 10 GM 1 packet dissolved in water Orally Once a day for 30 day(s) Aug, Active tiZANidine 4 mg oral tablet (17 sources) Central alpha-2 Adrenergic Agonist Start: 08-05-2020 take 4 mg by mouth three times daily Tizanidine Active 4 MG PO Three times daily August 04, 2020 11:00pm 24 hr venlafaxine 37.5 mg extended release oral capsule (1 source) Serotonin and Norepinephrine Reuptake Inhibitor Start: 10-25-2023 take 37.5 mg by mouth once daily Venlafaxine Active 37.5 MG PO Daily October 25, 2023 12:00am Completed/Discontinued Medications Medication Drug Class(es) Dates Sig (Normalized) Sig (Original) albuterol 0.83 mg/ml inhalation solution (7 sources) beta2-Adrenergic Agonist Start: 04-02-2019 End: 08-14-2020 take 2.5 mg by inhalation three times daily Albuterol Sulfate Discontinued 2.5 MG INHALATION Three times daily April 01, 2019 11:00pm August 14, 2020 9:10pm apixaban 2.5 mg oral tablet (7 sources) Factor Xa Inhibitor Start: 08-05-2020 End: 10-25-2023 take 1 tablet by mouth twice daily Apixaban (Eliquis) 2.5 mg tablet Discontinued 2.5 MG PO Twice daily August 04, 2020 11:00pm October 25, 2023 12:30pm benzonatate 200 mg oral capsule (7 sources) Non-narcotic Antitussive Start: 04-02-2019 End: 04-02-2019 Benzonatate Discontinued April 01, 2019 11:00pm April 02, 2019 8:31pm carbidopa 25 mg / levodopa 100 mg oral tablet (20 sources) Aromatic Amino Acid Decarboxylation Inhibitor, Aromatic Amino Acid Start: 08-05-2020 End: 08-06-2020 Carbidopa-Levodopa Discontinued TAB TABLET August 04, 2020 11:00pm August 06, 2020 12:27am Start: 04-02-2019 take 1 tablet by [facility] three times daily at mealtime Carbidopa-Levodopa Active 1 TAB PO 3 times per day with meals April 01, 2019 11:00pm carvedilol 25 mg oral tablet (20 sources) alpha-Adrenergic Jon, beta-Adrenergic Jon Start: 08-18-2020 take 25 mg by mouth twice daily at mealtime Carvedilol Active 25 MG PO Twice daily with meals August 17, 2020 11:00pm Start: 08-18-2020 End: 08-18-2020 take 25 mg by mouth twice daily Carvedilol Discontinue d 25 MG PO Twice daily 0 August 18, 2020 9:53am August 18, 2020 10:59am Start: 08-06-2020 End: 08-18-2020 take 12.5 mg by mouth twice daily Carvedilol Discontinued 12.5 MG PO Twice daily August 05, 2020 11:00pm August 18, 2020 9:54am Start: 04-02-2019 End: 08-06-2020 take 25 mg by mouth twice daily Carvedilol Discontinue d 25 MG PO Twice daily April 01, 2019 11:00pm August 06, 2020 12:27am take 1 tablet by [facility] every twelve hours Carvedilol 12.5 MG 1 tablet with food Orally Twice a day Active cefdinir 300 mg oral capsule (7 sources) Cephalosporin Antibacterial Start: 04-02-2019 End: 04-02-2019 Cefdinir Discontinued April 01, 2019 11:00pm April 02, 2019 8:34pm cefepime 2000 mg injection (7 sources) Cephalosporin Antibacterial Start: 04-02-2019 End: 08-06-2020 take 10 mL intravenously once daily Cefepime Discontinued 2 GM IV Daily April 01, 2019 11:00pm August 06, 2020 12:27am in 10ml solution. IV push cetirizine hydrochloride 10 mg oral tablet (13 sources) Histamine-1 Receptor Antagonist Start: 10-15-2014 take 1 tablet by mouth once daily at bedtime cetirizine (ZYRTEC) 10 mg tablet Take 1 tablet by mouth daily at bedtime. 0 10/15/2014 Active Comment on above: Take 1 tablet by [facility] th daily at bedtime. ciprofloxacin 250 mg oral tablet (17 sources) Quinolone Antimicrobial Start: 04-02-2019 End: 08-09-2020 take 500 mg by mouth once daily Ciprofloxacin Hcl Discontinued 500 MG PO Daily April 01, 2019 11:00pm August 09, 2020 7:50am take 1 tablet by [facility] th every twenty-four hours Ciprofloxacin HCl 500 MG 1 tablet Orally Once a day Active cyclobenzaprine hydrochloride 10 mg oral tablet (7 sources) Muscle Relaxant Start: 04-02-2019 End: 08-06-2020 take 10 mg by mouth three times daily Cyclobenzaprine Discontinued 10 MG PO Three times daily April 01, 2019 11:00pm August 06, 2020 12:27am docusate sodium 100 mg oral capsule (7 sources) Start: 04-02-2019 End: 08-06-2020 take 2 tablets by mouth once daily Docusate Sodium Discontinued 2 TAB PO Daily April 01, 2019 11:00pm August 06, 2020 12:27am DULoxetine 30 mg delayed release oral capsule (17 sources) Serotonin and Norepinephrine Reuptake Inhibitor Start: 08-06-2020 End: 08-18-2020 take 30 mg by mouth once daily Duloxetine Discontinued 30 MG PO Daily August 05, 2020 11:00pm August 18, 2020 9:54am Start: 10-15-2014 End: 08-06-2020 take 60 mg by mouth once daily at bedtime Duloxetine Discontinued 60 MG PO Daily at bedtime April 01, 2019 11:00pm August 06, 2020 12:27am Comment on above: Take 1 capsule by [facility] once daily. 0.4 ml enoxaparin sodium 100 mg/ml prefilled syringe (7 sources) Low Molecular Weight Heparin Start: 2018 End: 2019 inject 40 mg by subcutaneous injection once daily Enoxaparin Discontinued 40 MG SUBCUT Daily April 01, 2019 11:00pm August 06, 2020 12:27am gabapentin 300 mg oral capsule (3 sources) Anti-epileptic Agent Start: 2013 take 1 capsule by mouth three times daily gabapentin (NEURONTIN) 300 mg capsule Take 1 capsule by mouth three times daily. 0 10/15/2014 Active Comment on above: Take 1 capsule by [facility] three times daily. 200 actuat ipratropium bromide 0.017 mg/actuat metered dose inhaler (7 sources) Anticholinergic Start: 2018 End: 2019 take 1 puff(s) by inhalation four times daily Ipratropium Williams Discontinued 3 PUFF INHALATION Four times daily April 01, 2019 11:00pm August 06, 2020 12:27am irbesartan 150 mg oral tablet (7 sources) Angiotensin 2 Receptor Jon Start: 2019 End: 2019 take 150 mg by mouth once daily Irbesartan Discontinued 150 MG PO Daily August 05, 2020 11:00pm August 18, 2020 9:54am lansoprazole 30 mg delayed release oral capsule (3 sources) Proton Pump Inhibitor Start: 2013 take 1 capsule by mouth once daily lansoprazole (PREVACID) 30 mg capsule Take 1 capsule by mouth once daily. 0 10/15/2014 Active Comment on above: Take 1 capsule by mo [facility] once daily. levoFLOXacin 500 mg oral tablet (7 sources) Quinolone Antimicrobial Start: 2019 End: 2019 Levofloxacin Discontinued 500 MG PO Every 48 hours 7 August 08, 2020 11:00pm August 14, 2020 9:10pm lidocaine 0.05 mg/mg medicated patch (3 sources) Antiarrhythmic, Amide Local Anesthetic Start: 2013 lidocaine (LIDODERM) 5 %(700 mg/patch) Apply 1 Patch as directed every 24 hours. 0 10/15/2014 Active Comment on above: Apply 1 Patch as dir ected every 24 hours. linezolid 600 mg oral tablet (7 sources) Oxazolidinone Antibacterial Start: 2019 End: 2019 take 600 mg by mouth every twelve hours Linezolid Discontinued 600 MG PO Q12H August 05, 2020 11:00pm August 06, 2020 3:46pm methocarbamol 750 mg oral tablet (7 sources) Muscle Relaxant Start: 2019 End: 2019 take 750 mg by mouth twice daily Methocarbamol Discontinued 750 MG PO Twice daily August 05, 2020 11:00pm August 18, 2020 9:54am nebivolol 5 mg oral tablet (3 sources) take 1 tablet by mouth once daily nebivolol (BYSTOLIC) 5 mg tablet Take 5 mg by mouth once daily. 0 Active Comment on above: Take 5 mg by mouth o nce daily. predniSONE 5 mg oral tablet (10 sources) Start: 2018 End: 2019 take 5 mg by mouth every other day Prednisone Discontinued 5 MG PO every other day April 01, 2019 11:00pm August 18, 2020 9:54am every other day. pt took 04/02/19 [facility] predniSONE 5 MG 1 tablet Orally Once a d ay PRN Active promethazine hydrochloride 25 mg oral tablet (20 sources) Phenothiazine Start: 04-02-2019 End: 08-05-2020 take 25 mg by mouth every twelve hours Promethazine Discontinued 25 MG PO Q12H April 01, 2019 11:00pm August 05, 2020 10:15pm Start: 04-02-2019 End: 08-05-2020 Promethazine Discontinued 1 SUPP ME Q8H April 01, 2019 11:00pm August 05, 2020 10:15pm torsemide 10 mg oral tablet (14 sources) Loop Diuretic Start: 08-06-2020 End: 08-18-2020 take 40 mg by mouth once daily as needed for edema Torsemide Discontinued 40 MG PO Daily August 05, 2020 11:00pm August 18, 2020 9:54am Take daily as needed for edema, not to exceed 3 days a week Start: 04-02-2019 End: 04-02-2019 Torsemide Discontinued TABLE T April 01, 2019 11:00pm April 02, 2019 8:43pm Problems Active Problems Problem Classification Problem Date Documented Date Episodic/Chronic Abdominal pain (17 sources) Abdominal pain; Translations: [Unspecified abdominal pain] Onset: 4 10-14-2014 Episodic Acute and unspecified renal failure (3 sources) [id number] renal failure; Translations: [Acute on chronic renal failure] Onset: 4 10-14-2014 Chronic Acute and unspecified renal failure (7 sources) Acute renal failure syndrome; Translations: [Acute kidney failure, unspecified] 08-06-2020 Episodic Cardiac dysrhythmias (7 sources) Tachycardia; Translations: [Tachycardia, unspecified] 08-23-2020 Episodic Chronic kidney disease (20 sources) Chronic kidney disease stage 4; Translations: [Chronic kidney disease, stage 4 (severe)] Onset: 3 08-15-2020 Chronic Conduction disorders (19 sources) Cardiac pacemaker in situ; Translations: [H/O: cardiac pacemaker in situ] Onset: 4 08-24-2020 Chronic Deficiency and other anemia (10 sources) Anemia of renal disease; Translations: [Anemia in chronic kidney disease] Chronic Deficiency and other anemia (3 sources) Anemia in chronic kidney disease Chronic Deficiency and other anemia (7 sources) Chronic anemia; Translations: [Anemia, unspecified] 08-17-2020 Episodic Deficiency and other anemia (7 sources) Anemia; Translations: [Anemia, unspecified] 04-02-2019 Episodic Essential hypertension (17 sources) Hypertensive disorder; Translations: [Essential hypertension] Onset: 4 10-14-2014 Chronic Fluid and electrolyte disorders (13 sources) Hypokalemia; Translations: [Dehydration] Onset: 4 10-14-2014 Episodic Genitourinary symptoms and ill-defined conditions (7 sources) Proteinuria; Translations: [Proteinuria, unspecified] 08-17-2020 Episodic Gout and other crystal arthropathies (14 sources) Gout; Translations: [Gout, unspecified] Onset: 3 Chronic Headache; including migraine (7 sources) Headache; Translations: [Headache] 08-22-2020 Episodic Hypertension with complications and secondary hypertension (20 sources) Hypertensive urgency ; Translations: [Hypertensive urgency] Onset: 3 08-22-2020 Chronic Infective arthritis and osteomyelitis (except that caused by tuberculosis or sexually transmitted disease) (10 sources) Subacute osteomyelitis of left foot; Translations: [Subacute osteomyelitis, left ankle and foot] Chronic Nausea and vomiting (17 sources) Nausea and vomiting; Translations: [Nausea with vomiting, unspecified] Onset: 4 10-14-2014 Episodic Nonspecific chest pain (9 sources) Atypical chest pain; Translations: [Other chest pain] Onset: 3 08-24-2020 Episodic Open wounds of extremities (1 source) Laceration without foreign body of other finger without damage to nail, subsequent encounter; Translations: [Laceration without foreign body of other finger without damage to nail, subsequent encounter] Onset: 8 Episodic Other aftercare (7 sources) Polypharmacy ; Translations: [Other half-way (current) drug therapy] 08-07-2020 Episodic Other circulatory disease (6 sources) Acquired arteriovenous fistula aneurysm; Translations: [Arteriovenous fistula, acquired] Chronic Other circulatory disease (7 sources) Low blood pressure; Translations: [Hypotension, unspecified] 04-02-2019 Episodic Other connective tissue disease (4 sources) Pain in right thigh; Translations: [PAIN IN RIGHT THIGH] Onset: 3 Episodic Other diseases of kidney and ureters (10 sources) Secondary hyperparathyroidism; Translations: [Secondary hyperparathyroidism of renal origin] Chronic Other diseases of kidney and ureters (4 sources) Secondary hyperparathyroidism of renal origin; Translations: [Secondary hyperparathyroidism of renal origin] Onset: 3 Chronic Other lower respiratory disease (7 sources) Dyspnea on exertion; Translations: [Other forms of dyspnea] 08-24-2020 Episodic Other nervous system disorders (7 sources) Disorder of brain; Translations: [Encephalopathy, unspecified] 08-28-2020 Chronic Other nervous system disorders (7 sources) Walking disability; Translations: [Difficulty in walking, not elsewhere classified] 08-27-2020 Chronic Other nervous system disorders (7 sources) Involuntary movement; Translations: [Unspecified abnormal involuntary movements] 08-27-2020 Episodic Other nutritional; endocrine; and metabolic disorders (3 sources) Hypercalcemia; Translations: [Hypercalcemia] Onset: 4 10-14-2014 Chronic Other skin disorders (1 source) Change in skin lesion; Translations: [Anemia in chronic kidney disease] Onset: 3 Episodic Phlebitis; thrombophlebitis and thromboembolism (7 sources) Deep venous thrombosis; Translations: [Acute embolism and thrombosis of unspecified deep veins of unspecified lower extremity] 08-24-2020 Episodic Residual codes; unclassified (2 sources) Noncompliance with therapeutic regimen; Translations: [Patient's noncompliance with other medical treatment and regimen] 08-23-2020 Episodic Residual codes; unclassified (7 sources) Pain; Translations: [Pain, unspecified] 08-04-2020 Episodic Residual codes; unclassified (7 sources) Delirium; Translations: [Disorientation, unspecified] 08-27-2020 Episodic Residual codes; unclassified (7 sources) Altered mental status; Translations: [Altered mental status, unspecified] 08-06-2020 Episodic Residual codes; unclassified (5 sources) Noncompliance with treatment; Translations: [Noncompliance of patient with other medical treatment and regimen] 08-23-2020 Episodic Substance-related disorders (1 source) Cannabis use, unspecified, uncomplicated Episodic Unclassified (1 source) Acidosis, unspecified; Translations: [Acidosis, unspecified] Onset: 3 Urinary tract infections (7 sources) Urinary tract infectious disease; Translations: [Urinary tract infection, site not specified] 08-25-2020 Episodic Past or Other Problems Problem Classification Problem Date Documented Da te Episodic/Chronic Cancer of breast (3 sources) History of malignant neoplasm of breast; Translations: [History of breast cancer] Onset: 10-12-2014 Episodic Other diseases of veins and lymphatics (3 sources) Stasis dermatitis; Translations: [Venous stasis dermatitis] Onset: 10-12-2014 Episodic Other nervous system disorders (3 sources) Coarse tremor; Translations: [Coarse tremors] Onset: 10-12-2014 Episodic Other non-traumatic joint disorders (4 sources) Pain in left hip; Translations: [PAIN IN LEFT HIP] Onset: 09-01-2022 Episodic Residual codes; unclassified (3 sources) Chronic back pain ; Translations: [Chronic back pain] Onset: 10-12-2014 10-14-2014 Episodic Spondylosis; intervertebral disc disorders; other back problems (3 sources) Chronic neck pain; Translations: [Chronic neck pain] Onset: 10-12-2014 10-14-2014 Episodic Unclassified (3 sources) Metabolic acidemia E87.20 Results Test Name Value Interpretation Reference Range Facility Amphetamine Screen Ql (U)Ord ered By: Pal Almendarez on 10-25-2023 Amphetamines Ql (U) Negative Negative [facility] Barbiturates [Presence] in U rine by Screen methodOrdered By: Pal Almendarez on 10-25-2023 Barbiturates Screen Ql (U) Negative Negative [facility] Benzodiazepines Screen Ql (U )Ordered By: Pal Almendarez on 10-25-2023 Benzodiazepines Ql (U) Negative Negative [facility] Benzoylecgonine [Presence] i n Urine by Screen methodOrdered By: Pal Almendarez on 10-25-2023 Benzoylecgonine Screen Ql (U) Negative Negative [facility] Cannabinoids [Presence] in U rine by Screen methodOrdered By: Pal Almendarez on 10-25-2023 Cannabinoids Screen Ql (U) Positive Negative [facility] Comment on above: These are unconfirme d results and should not be used for legal purposes. Drug Cut-Off Concentration: AMPH 1000 ng/mL MITCH 200 ng/mL МАРИНА 200 ng/mL COCM 300 ng/mL OP 300 ng/mL PCP 25 ng/mL THC 20 ng/mL Drug Screen,Urineon 10-25-20 23 Amphetamine Screen,Urine Negative Normal Negative [facility] Comment on above: Performed By: #### C A, [id number], TSH3, PHOS, MG, BUN, CREAT, PTH #### [facility] [address] Barbiturate Screen,Urine Negative Normal Negative [facility] Comment on above: Performed By: #### C A, [id number], TSH3, PHOS, MG, BUN, CREAT, PTH #### [address] Benzodiazepines Screen,Urine Negative Normal Negative [facility] Comment on above: Performed By: #### C A, [id number], TSH3, PHOS, MG, BUN, CREAT, PTH #### [address] Cannabinoid Screen,Urine Positive High Negative [facility] Comment on above: Result Comment: Thes e are unconfirmed results and should not be used for legal purposes. Drug Cut-Off Concentration: AMPH 1000 ng/mL MITCH 200 ng/mL МАРИНА 200 ng/mL COCM 300 ng/mL OP 300 ng/mL PCP 25 ng/mL THC 20 ng/mL PERFORMED BY: [place] [address] PATHOLOGIST MATHEMATICIAN RESEARCH TESSA BAKER M.D. Performed By: #### C A, [id number], TSH3, PHOS, MG, BUN, CREAT, PTH #### [address] Cocaine Screen,Urine Negative Normal Negative [facility] Comment on above: Performed By: #### C A, [id number], TSH3, PHOS, MG, BUN, CREAT, PTH #### [address] Opiate Screen,Urine Positive High Negative [facility] Comment on above: Performed By: #### C A, [id number], TSH3, PHOS, MG, BUN, CREAT, PTH #### [address] Phencyclidine Screen,Urine Negative Normal Negative [facility] Comment on above: Performed By: #### C A, [id number], TSH3, PHOS, MG, BUN, CREAT, PTH #### [address] ECG 12 lead ECGon 10-25-2023 ECG 12 lead ECG [facility] [address] [place] [address] Electrocardiograph Report Signed Patient: Padma Guevara MR#: [id number] 57 : 1950 Acct:[id number] Age/Sex: 73 / F ADM Date: 10/25/23 Loc: [place] Room: Type: [facility] Attending Dr: Brodie Womack MD Ordering Provider: Pal Almendarez Jr, MD Date of Service: 10/25/23 ECG/ECG 12 lead ECG: preop Copies to: Test Reason : Blood Pressure : / mmHG Vent. Rate : 090 BPM Atrial Rate : 090 BPM P-R Int : 178 ms QRS Dur : 086 ms QT Int : 368 ms P-R-T Axes : 038 033 046 degrees QTc Int : 450 ms Atrial-paced rhythm Abnormal ECG When compared with ECG of 23-AUG-2020 13:49, Electronic atrial pacemaker has replaced Sinus rhythm Nonspecific T wave abnormality no longer evident in Lateral leads QT has shortened Confirmed by SAUNDRA TREVIÑO [facility], KUMAR ([id number]) on 10/25/2023 6:22:22 PM Referred By: Electronically Signed By:KUMAR LY MD [facility] Transcribed By: MUS Signed By Azam Ly MD 10/25/231821 Normal [facility] ISTAT Annieconnie 10-25-2023 CO2 [Moles/Vol] 25 mmol/L Normal 23-29 [facility] Comment on above: Performed By: #### C A, [id number], TSH3, PHOS, MG, BUN, CREAT, PTH #### [facility] [address] [place] [address] [facility] Glucose [Mass/Vol] 91 mg/dL Normal 70-105 [facility] Comment on above: Result Comment: PERF ORMED BY: [facility] [address] [place] [address] PATHOLOGIST MATHEMATICIAN RESEARCH TESSA BAKER M.D. Performed By: #### C A, [id number], TSH3, PHOS, MG, BUN, CREAT, PTH #### [address] HCO3 (Bld) [Moles/Vol] 23.9 mmol/L Normal 22.0-28.0 [facility] Comment on above: Performed By: #### C A, [id number], TSH3, PHOS, MG, BUN, CREAT, PTH #### [address] Hematocrit (Bld) [Volume fraction] 28.0 % Low 38.0-51.0 [facility] Comment on above: Performed By: #### C A, [id number], TSH3, PHOS, MG, BUN, CREAT, PTH #### [address] Hemoglobin (Bld) [Mass/Vol] 9.5 g/dL Low 12.0-17.0 [facility] Comment on above: Performed By: #### C A, [id number], TSH3, PHOS, MG, BUN, CREAT, PTH #### [address] ISTAT Base Excess 0 mmol/L Normal -2 TO 3 [facility] Comment on above: Performed By: #### C A, [id number], TSH3, PHOS, MG, BUN, CREAT, PTH #### [address] ISTAT Ionized Calcium 1.16 mol/L Normal 1.12-1.32 [facility] Comment on above: Performed By: #### C A, [id number], TSH3, PHOS, MG, BUN, CREAT, PTH #### [address] ISTAT PCO2 35.1 mm[Hg] Normal 35-51 [facility] Comment on above: Performed By: #### C A, [id number], TSH3, PHOS, MG, BUN, CREAT, PTH #### [address] ISTAT Ph 7.441 Normal 7.31-7.45 [facility] Comment on above: Performed By: #### C A, [id number], TSH3, PHOS, MG, BUN, CREAT, PTH #### [facility] [address] ISTAT PO2 40 mm[Hg] Low 80-105 [facility] Comment on above: Performed By: #### C A, [id number], TSH3, PHOS, MG, BUN, CREAT, PTH #### [facility] [address] Oxygen saturation in Blood 78 % Low 95-98 [facility] Comment on above: Result Comment: Refe rence ranges reflect baseline specimens only Performed By: #### C A, [id number], TSH3, PHOS, MG, BUN, CREAT, PTH #### [facility] [address] Potassium [Moles/Vol] 5.0 mmol/L High 3.5-4.9 [facility] Comment on above: Performed By: #### C A, [id number], TSH3, PHOS, MG, BUN, CREAT, PTH #### [facility] [address] Sodium [Moles/Vol] 139 mmol/L Normal 138-146 [facility] Comment on above: Performed By: #### C A, [id number], TSH3, PHOS, MG, BUN, CREAT, PTH #### [address] Opiates [Presence] in Urine by Screen methodOrdered By: Pal Almendarez on 10-25-2023 Opiates Screen Ql (U) Positive Negative [facility] Phencyclidine Screen Ql (U)O rdered By: Pal Almendarez on 10-25-2023 Phencyclidine Ql (U) Negative Negative [facility] Potassiumon 10-25-2023 Potassium [Moles/Vol] 5.1 mmol/L Normal 3.5-5.1 [facility] Comment on above: Result Comment: PERF ORMED BY: [facility] [address] [place] [address] PATHOLOGIST MATHEMATICIAN RESEARCH TESSA BAKER M.D. Performed By: #### C A, [id number], TSH3, PHOS, MG, BUN, CREAT, PTH #### [facility] [address] Potassium [Moles/volume] in Serum or PlasmaOrdered By: Pal Almendarez on 10-25-2023 Potassium [Moles/Vol] 5.1 mmol/L 3.5-5.1 [facility] Albumin [Mass/volume] in Ser um or Plasma by Bromocresol green (BCG) dye binding methoOrdered By: Manan Acevedo on 10-10-2023 Albumin BCG dye [Mass/Vol] 3.9 g/dL 3.5-5.7 [facility] Calcium [Mass/volume] in Ser um or PlasmaOrdered By: Manan Acevedo on 10-10-2023 Calcium [Mass/Vol] 8.6 mg/dL 8.6-10.3 [facility] Carbon dioxide, total [Moles /volume] in Serum or PlasmaOrdered By: Manan Acevedo on 10-10-2023 CO2 [Moles/Vol] 25.7 mmol/L 21.0-31.0 [facility] Chloride [Moles/volume] in S dona or PlasmaOrdered By: Manan Acevedo on 10-10-2023 Chloride [Moles/Vol] 106 mmol/L 98-[address] [facility] Creatinine [Mass/volume] in Serum or PlasmaOrdered By: Manan Acevedo on 10-10-2023 Creatinine [Mass/Vol] 3.53 mg/dL 0.60-1.20 [facility] Erythrocyte distribution wid th Auto (RBC) [Ratio]Ordered By: Manan Acevedo on 10-10-2023 Erythrocyte distribution width (RBC) [Ratio] 14.1 % 11.9-15.3 [facility] Glucose [Mass/volume] in Ser um or PlasmaOrdered By: Manan Acevedo on 10-10-2023 Glucose [Mass/Vol] 80 mg/dL 70-100 [facility] Comment on above: ADA recommended refe rence rangeRandom Glucose Reference Range is dependent on time and content of last meal. Glucose of more than 200 mg/dL in a nonstressed, ambulatory subject supports the diagnosis of Diabetes Mellitus. Hematocrit Auto (Bld) [Volum e fraction]Ordered By: Manan Acevedo on 10-10-2023 Hematocrit (Bld) [Volume fraction] 30.8 % 34.0-46.4 [facility] Hemoglobin [Mass/volume] in BloodOrdered By: Manan Acevedo on 10-10-2023 Hemoglobin (Bld) [Mass/Vol] 10.2 g/dL 11.8-15.4 [facility] Hemogram CBC Without Diffon 10-10-2023 Erythrocyte distribution width (RBC) [Ratio] 14.1 % Normal 11.9-15.3 [facility] Comment on above: Order Comment: Reaso n for Exam Anemia of renal disease;Дмитрий hy kid w cr kid I-IV;Secondary h Performed By: #### C A, [id number], TSH3, PHOS, MG, BUN, CREAT, PTH #### [facility] [address] Hematocrit (Bld) [Volume fraction] 30.8 % Low 34.0-46.4 [facility] Comment on above: Order Comment: Reaso n for Exam Anemia of renal disease;Дмитрий hy kid w cr kid I-IV;Secondary h Performed By: #### C A, [id number], TSH3, PHOS, MG, BUN, CREAT, PTH #### [facility] [address] Hemoglobin (Bld) [Mass/Vol] 10.2 g/dL Low 11.8-15.4 [facility] Comment on above: Order Comment: Reaso n for Exam Anemia of renal disease;Дмитрий hy kid w cr kid I-IV;Secondary h Performed By: #### C A, [id number], TSH3, PHOS, MG, BUN, CREAT, PTH #### [facility] [address] [place] [id number] [place] MCH (RBC) [Entitic mass] 31.2 pg Normal 24.7-34.3 [facility] Comment on above: Order Comment: Reaso n for Exam Anemia of renal disease;Дмитрий hy kid w cr kid I-IV;Secondary h Performed By: #### C A, [id number], TSH3, PHOS, MG, BUN, CREAT, PTH #### [facility] [address] MCV (RBC) [Entitic vol] 94.5 fL Normal 80-100 [facility] Comment on above: Order Comment: Reaso n for Exam Anemia of renal disease;Дмитрий hy kid w cr kid I-IV;Secondary h Performed By: #### C A, [id number], TSH3, PHOS, MG, BUN, CREAT, PTH #### [facility] [address] Mean Corpuscular HGB Conc 33.0 g/dL Normal 32.0-35.0 [facility] Comment on above: Order Comment: Reaso n for Exam Anemia of renal disease;Дмитрий hy kid w cr kid I-IV;Secondary h Performed By: #### C A, [id number], TSH3, PHOS, MG, BUN, CREAT, PTH #### [facility] [address] Platelet mean volume (Bld) [Entitic vol] 8.5 fL Normal 6.3-10.7 [facility] Comment on above: Order Comment: Reaso n for Exam Anemia of renal disease;Дмитрий hy kid w cr kid I-IV;Secondary h Result Comment: PERF ORMED BY: [place] [address] PATHOLOGIST MATHEMATICIAN RESEARCH TESSA BAKER M.D. Performed By: #### C A, [id number], TSH3, PHOS, MG, BUN, CREAT, PTH #### [facility] [address] Platelets (Bld) [#/Vol] 199 10*3/uL Normal 150-450 [facility] Comment on above: Order Comment: Reaso n for Exam Anemia of renal disease;Дмитрий hy kid w cr kid I-IV;Secondary h Performed By: #### C A, [id number], TSH3, PHOS, MG, BUN, CREAT, PTH #### [facility] [address] RBC (Bld) [#/Vol] 3.26 10*6/uL Low 3.60-5.00 [facility] Comment on above: Order Comment: Reaso n for Exam Anemia of renal disease;Дмитрий hy kid w cr kid I-IV;Secondary h Performed By: #### C A, [id number], TSH3, PHOS, MG, BUN, CREAT, PTH #### [facility] [address] WBC (Bld) [#/Vol] 4.4 10*3/uL Normal 3.8-11.6 [facility] Comment on above: Order Comment: Reaso n for Exam Anemia of renal disease;Дмитрий hy kid w cr kid I-IV;Secondary h Performed By: #### C A, [id number], TSH3, PHOS, MG, BUN, CREAT, PTH #### [facility] [address] Leukocytes [#/volume] correc george for nucleated erythrocytes in Blood by Automated counOrdered By: Manan Acevedo on 10-10-2023 WBC corrected for nucl RBC Auto (Bld) [#/Vol] 4.4 10*3/uL 3.8-11.6 [facility] MCH Auto (RBC) [Entitic mass ]Ordered By: Manan Acevedo on 10-10-2023 MCH (RBC) [Entitic mass] 31.2 pg 24.7-34.3 [facility] MCHC Auto (RBC) [Mass/Vol]Or dered By: Manan Acevedo on 10-10-2023 MCHC (RBC) [Mass/Vol] 33.0 g/dL 32.0-35.0 [facility] MCV Auto (RBC) [Entitic vol] Ordered By: Manan Acevedo on 10-10-2023 MCV (RBC) [Entitic vol] 94.5 fL 80-100 [facility] No Panel InformationOrdered By: Manan Acevedo on 10-10-2023 Estimated GFR (CKD-EPI) 13.094 mL/Min [facility] Creatinine Clearance (Chem N/A [facility] Phosphate [Mass/volume] in S dona or PlasmaOrdered By: Manan Acevedo on 10-10-2023 Phosphate [Mass/Vol] 5.7 mg/dL 2.5-4.[address] [facility] Platelet mean volume Auto (B ld) [Entitic vol]Ordered By: Manan Acevedo on 10-10-2023 Platelet mean volume (Bld) [Entitic vol] 8.5 fL 6.3-10.7 [facility] Platelets Auto (Bld) [#/Vol] Ordered By: Manan Acevedo on 10-10-2023 Platelets (Bld) [#/Vol] 199 10*3/uL 150-450 [facility] Potassium [Moles/volume] in Serum or PlasmaOrdered By: Manan Acevedo on 10-10-2023 Potassium [Moles/Vol] 5.0 mmol/L 3.5-5.1 [facility] RBC Auto (Bld) [#/Vol]Ordere d By: Manan Acevedo on 10-10-2023 RBC (Bld) [#/Vol] 3.26 10*6/uL 3.60-5.00 [facility] Renal Function Panelon 10-10 Albumin [Mass/Vol] 3.9 g/dL Normal 3.5-5.7 [facility] Comment on above: Order Comment: Reaso n for Exam Anemia of renal disease;Дмитрий hy kid w cr kid I-IV;Secondary h Result Comment: PERF ORMED BY: [facility] [address] [place] [address] PATHOLOGIST MATHEMATICIAN RESEARCH TESSA BAKER M.D. Performed By: #### C A, [id number], TSH3, PHOS, MG, BUN, CREAT, PTH #### [facility] [address] Anion gap [Moles/Vol] 12.3 mmol/L Normal 6.0-15.0 [facility] Comment on above: Order Comment: Reaso n for Exam Anemia of renal disease;Дмитрий hy kid w cr kid I-IV;Secondary h Performed By: #### C A, [id number], TSH3, PHOS, MG, BUN, CREAT, PTH #### [facility] [address] Calcium [Mass/Vol] 8.6 mg/dL Normal 8.6-10.3 [facility] Comment on above: Order Comment: Reaso n for Exam Anemia of renal disease;Дмитрий hy kid w cr kid I-IV;Secondary h Performed By: #### C A, [id number], TSH3, PHOS, MG, BUN, CREAT, PTH #### [facility] [address] [place] [id number] [facility] Chloride [Moles/Vol] 106 mmol/L Normal 98-[address] [facility] Comment on above: Order Comment: Reaso n for Exam Anemia of renal disease;Дмитрий hy kid w cr kid I-IV;Secondary h Performed By: #### C A, [id number], TSH3, PHOS, MG, BUN, CREAT, PTH #### [facility] [address] [place] [id number] [facility] CO2 [Moles/Vol] 25.7 mmol/L Normal 21.0-31.0 [facility] Comment on above: Order Comment: Reaso n for Exam Anemia of renal disease;Дмитрий hy kid w cr kid I-IV;Secondary h Performed By: #### C A, [id number], TSH3, PHOS, MG, BUN, CREAT, PTH #### [facility] [address] [place] [id number] [place] Creatinine [Mass/Vol] 3.53 mg/dL High 0.60-1.20 [facility] Comment on above: Order Comment: Reaso n for Exam Anemia of renal disease;Дмитрий hy kid w cr kid I-IV;Secondary h Performed By: #### C A, [id number], TSH3, PHOS, MG, BUN, CREAT, PTH #### [facility] [address] [place] [id number] [place] GFR/1.73 sq M.predicted MDRD (S/P/Bld) [Vol rate/Area] 13.094 mL/min/{1.73_m2} Normal [facility] Comment on above: Order Comment: Reaso n for Exam Anemia of renal disease;Дмитрий hy kid w cr kid I-IV;Secondary h Performed By: #### C A, [id number], TSH3, PHOS, MG, BUN, CREAT, PTH #### [facility] [address] Glucose [Mass/Vol] 80 mg/dL Normal 70-100 [facility] Comment on above: Order Comment: Reaso n for Exam Anemia of renal disease;Дмитрий hy kid w cr kid I-IV;Secondary h Result Comment: [facility] Glucose Reference Range is dependent on time and content of last meal. Glucose of more than 200 mg/dL in a nonstressed, ambulatory subject supports the diagnosis of Diabetes Mellitus. ADA recommended reference range Performed By: #### C A, [id number], TSH3, PHOS, MG, BUN, CREAT, PTH #### [facility] [address] [place] [id number] [place] Phosphate [Mass/Vol] 5.7 mg/dL High 2.5-4.[address] [facility] Comment on above: Order Comment: Reaso n for Exam Anemia of renal disease;Дмитрий hy kid w cr kid I-IV;Secondary h Performed By: #### C A, [id number], TSH3, PHOS, MG, BUN, CREAT, PTH #### [facility] [address] [place] [id number] [place] Potassium [Moles/Vol] 5.0 mmol/L Normal 3.5-5.1 [facility] Comment on above: Order Comment: Reaso n for Exam Anemia of renal disease;Дмитрий hy kid w cr kid I-IV;Secondary h Performed By: #### C A, [id number], TSH3, PHOS, MG, BUN, CREAT, PTH #### [facility] [address] [place] [id number] [place] Sodium [Moles/Vol] 139 mmol/L Normal 136-145 [facility] Comment on above: Order Comment: Reaso n for Exam Anemia of renal disease;Дмитрий hy kid w cr kid I-IV;Secondary h Performed By: #### C A, [id number], TSH3, PHOS, MG, BUN, CREAT, PTH #### [facility] [address] [place] [id number] [facility] Urea nitrogen [Mass/Vol] 67 mg/dL High 05-30 [facility] Comment on above: Order Comment: Reaso n for Exam Anemia of renal disease;Дмитрий hy kid w cr kid I-IV;Secondary h Performed By: #### C A, [id number], TSH3, PHOS, MG, BUN, CREAT, PTH #### [facility] [address] [place] [id number] [facility] Serum or plasma anion gap de terminationOrdered By: Manan Acevedo on 10-10-2023 Anion gap [Moles/Vol] 12.3 mmol/L 6.0-15.0 [facility] Sodium [Moles/volume] in Ser um or PlasmaOrdered By: Manan Acevedo on 10-10-2023 Sodium [Moles/Vol] 139 mmol/L 136-145 [facility] Urea nitrogen [Mass/volume] in Serum or PlasmaOrdered By: Manan Acevedo on 10-10-2023 Urea nitrogen [Mass/Vol] 67 mg/dL 05-30 [facility] US map hemodial access BILon 10-05-2023 US map hemodial access [place] [facility] [address] [place] [id number] Ultrasound Report Signed Patient: Padma Guevara MR#: [id number] 57 : 1950 Acct:[id number] Age/Sex: 73 / F ADM Date: 10/05/23 Loc: Room: Type: [facility] Attending Dr: Manan Acevedo MD Ordering Provider: Manan Acevedo MD Date of Service: 10/05/23 US/US map hemodial access [place]: N18.5,D63.1, I12.9, N25.81, E87.5, E87.20, M10.9 Copies to: Manan Acevedo MD Bilateral upper extremity hemodialysis vein mapping INDICATIONS: Need for hemodialysis FINDINGS: Right upper extremity: The cephalic vein is of inadequate diameter for fistula creation. The right subclavian and axillary veins are patent. The brachial artery is of adequate diameter for fistula creation. The right upper extremity basilic vein is of adequate diameter for fistula creation in the arm, but not the forearm. Left upper extremity: No veins identifiable for fistula creation. US/US map hemodial access [place] IMPRESSION: As above Impression dictated by: Angel Rodriguez MD10/05/2023 4:02 PM Dictation Location: [facility] Tech: Nicole Parish Transcribed By: ENRIQUE 10/05/23 160 Dictated By: Angel Rodriguez MD 10/05/23 160 Signed By: 10/05/23 1602 Normal [facility] US renal BIon 07-19-2023 US renal BI [facility] [place] [address] Ultrasound Report Signed Patient: Padma Guevara MR#: [id number] 57 : 1950 Acct:[id number] Age/Sex: 73 / F ADM Date: 07/19/23 Loc: Room: Type: [facility] Attending Dr: Manan Acevedo MD Ordering Provider: Manan Acevedo MD Date of Service: 07/19/23 US/US renal BI: CKD (chronic kidney disease) stage 4, GFR 15-29 ml/min;Anemi Copies to: Manan Acevedo MD BILATERAL RENAL AND BLADDER ULTRASOUND CLINICAL HISTORY: Chronic kidney disease stage III. COMPARISON: CT abdomen and pelvis 08/08/2005. Estimation of renal size is approximately 8.84 cm on the right and 11.91 cm on the left. Questionable bilateral hydronephrosis or possibly cystic change involving both kidneys. No solid mass is noted. Questionable calculi are seen involving the right kidney. The urinary bladder is partially distended with a volume of 195.85 ml. No shadowing stone or focal lesion. No significant postvoid residual. US/US renal BI IMPRESSION: QUESTIONABLE BILATERAL HYDRONEPHROSIS VERSUS CYSTIC CHANGES. FINDING IS NEW COMPARED TO THE 2005 STUDY. FURTHER EVALUATION WITH CT IS RECOMMENDED. QUESTIONABLE RIGHT NEPHROLITHIASIS. THIS COULD ALSO BE CONFIRMED BY CT. Impression dictated by: Billy Virgen Jr., D.O.07/19/2023 3:49 PM Dictation Location: [place] [address] Tech: Dannielle Butler Transcribed By: PWS 07/19/23 1549 Dictated By: Billy Virgen Jr, DO 07/19/23 1546 Signed By: 07/19/23 1549 Normal [facility] Office Visiton 06-16-2023 Follow-up visit [id number] Corrina Guevara 1950 F Date Provider Department Center 06/16/2023 CARSON GONZALEZ CARD [facility] No family history on file Level of Service:37854 ME OFFICE/OUTPATIENT ESTABLISHED MOD MDM 30-39 MIN Normal [facility] Orders Onlyon 06-16-2023 Orders Only [id number] Corrina Guevara 1950 F Date Provider Department Center 06/16/2023 [id number] MASCORRO CARD [facility] No family history on file Normal [facility] Blood Urea Nitrogenon 2022 Urea nitrogen [Mass/Vol] 60 mg/dL High 7-25 [facility] Comment on above: Performed By: #### C A, [id number], TSH3, PHOS, MG, BUN, CREAT, PTH #### [facility] [address] [id number] [place] Calciumon 02-07-2023 Calcium [Mass/Vol] 9.3 mg/dL Normal 8.6-10.3 [facility] Comment on above: Performed By: #### C A, [id number], TSH3, PHOS, MG, BUN, CREAT, PTH #### [facility] [address] [id number] [place] Calcium [Mass/volume] in Ser um or PlasmaOrdered By: Pal Frank on 02-07-2023 Calcium [Mass/Vol] 9.3 mg/dL 8.6-10.3 [facility] Creatinineon 02-07-2023 Creatinine [Mass/Vol] 2.92 mg/dL High 0.60-1.20 [facility] Comment on above: Performed By: #### C A, [id number], TSH3, PHOS, MG, BUN, CREAT, PTH #### [facility] [address] [place] [address] [place] GFR/1.73 sq M.predicted MDRD (S/P/Bld) [Vol rate/Area] 16.545 mL/min/{1.73_m2} Normal [facility] Comment on above: Performed By: #### C A, [id number], TSH3, PHOS, MG, BUN, CREAT, PTH #### [facility] [address] [id number] [facility] Creatinine [Mass/volume] in Serum or PlasmaOrdered By: Pal Frank on 02-07-2023 Creatinine [Mass/Vol] 2.92 mg/dL 0.60-1.20 [facility] Magnesiumon 02-07-2023 Magnesium [Mass/Vol] 1.8 mg/dL Low 1.9-2.[address] [facility] Comment on above: Performed By: #### C A, [id number], TSH3, PHOS, MG, BUN, CREAT, PTH #### [facility] [address] Magnesium [Mass/volume] in S dona or PlasmaOrdered By: Pal Frank on 02-07-2023 Magnesium [Mass/Vol] 1.8 mg/dL 1.9-2.[address] [facility] No Panel InformationOrdered By: Pal Frank on 02-07-2023 Estimated GFR (CKD-EPI) 16.545 mL/Min [facility] Creatinine Clearance (Chem N/A [facility] Parathyrin.intact [Mass/volu me] in Serum or PlasmaOrdered By: Pal Frank on 02-07-2023 Parathyrin.intact [Mass/Vol] 189.5 pg/mL [facility] Parathyroid Hormone Intacton 02-07-2023 Parathyroid Hormone Intact 189.5 pg/mL High 12-88 [facility] Comment on above: Result Comment: PERF ORMED BY: [place] [address] PATHOLOGIST MATHEMATICIAN RESEARCH TESSA BAKER M.D. Performed By: #### C A, [id number], TSH3, PHOS, MG, BUN, CREAT, PTH #### [facility] [address] [place] [address] Phosphate [Mass/volume] in S dona or PlasmaOrdered By: Pal Frank on 02-07-2023 Phosphate [Mass/Vol] 5.5 mg/dL 3.7-7.[address] [facility] Phosphoruson 02-07-2023 Phosphate [Mass/Vol] 5.5 mg/dL Normal 3.7-7.[address] [facility] Comment on above: Performed By: #### C A, [id number], TSH3, PHOS, MG, BUN, CREAT, PTH #### [facility] [address] [place] [address] Thyroid Stimulating Hormoneo n 02-07-2023 TSH Qn 2.12 m[IU]/L Normal 0.45-5.33 [facility] Comment on above: Performed By: #### C A, [id number], TSH3, PHOS, MG, BUN, CREAT, PTH #### [facility] [address] [place] [address] Thyrotropin [Units/volume] i n Serum or PlasmaOrdered By: Pal Frank on 02-07-2023 TSH Qn 2.12 m[IU]/L 0.45-5.33 [facility] Urea nitrogen [Mass/volume] in Serum or PlasmaOrdered By: Pal Frank on 02-07-2023 Urea nitrogen [Mass/Vol] 60 mg/dL 7-25 [facility] Vitamin D 25 Hydroxy Totalon 02-07-2023 Vitamin D 25 Hydroxy Total 40.0 ng/mL Normal 30-100 [facility] Comment on above: Result Comment: KEELEY MIN D STATUS 25(OH)VITAMIN D RANGE (ng/mL) Deficient <20 Insufficient 20 to <30 Sufficient 30 to 100 Reference: Zuleyma Khan, Joel ROLON, et al. Evaluation,treatment, and prevention of vitamin D deficiency; an Endocrine Society clinical practice guideline. JCEM. 2010; 96(7):191-. PERFORMED BY: [facility] [address] [place] [address] PATHOLOGIST MATHEMATICIAN RESEARCH TESSA BAKER M.D. Performed By: #### C A, [id number], TSH3, PHOS, MG, BUN, CREAT, PTH #### [facility] [address] Vitamin D+Metabolites [Mass/ volume] in Serum or PlasmaOrdered By: Pal Frank on 02-07-2023 Vitamin D+Metabolites [Mass/Vol] 40.0 ng/mL 30-100 [facility] Comment on above: VITAMIN D STATUS 25( [place])VITAMIN D RANGE (ng/mL) Deficient <20 Insufficient 20 to <30Sufficient 30 to 100Reference: Zuleyma Khan, Joel ROLON, et al. Evaluation,treatment, and prevention of vitamin D deficiency; an Endocrine Society clinical practice guideline. JCEM. 2010; 96(7):1911-. Basophils Auto (Bld) [#/Vol] Ordered By: Pal Frank on 07-27-2022 Basophils (Bld) [#/Vol] 0.0 10*3/uL 0.0-0.2 [facility] Basophils/100 WBC Auto (Bld) Ordered By: Pal Frank on 07-27-2022 Basophils/100 WBC (Bld) 1.0 % . [facility] Blood hemoglobin measurement (mass/volume)Ordered By: Pal Frank on 07-27-2022 Hemoglobin (Bld) [Mass/Vol] 8.7 g/dL 11.8-15.4 [facility] Blood leukocytes automated c ount (number/volume)Ordered By: Pal Frank on 07-27-2022 WBC (Bld) [#/Vol] 4.2 10*3/uL 4.5-11.0 [facility] Body fluid albumin measureme nt (mass/volume)Ordered By: Pal Frank on 07-27-2022 Albumin (Body fld) [Mass/Vol] 3.2 g/dL 3.2-5.5 [facility] Creatinine and Glomerular fi ltration rate.predicted panel (S/P/Bld)Ordered By: Pal Frank on 07-27-2022 Creatinine [Mass/Vol] 2.94 mg/dL 0.44-1.03 [facility] Direct bilirubin measurement Ordered By: Pal Frank on 07-27-2022 Bilirubin.direct [Mass/Vol] mg/dL 0.0-0.4 [facility] Eosinophils Auto (Bld) [#/Vo l]Ordered By: Pal Frank on 07-27-2022 Eosinophils (Bld) [#/Vol] 0.1 10*3/uL 0.0-0.45 [facility] Eosinophils/100 WBC Auto (Bl d)Ordered By: Pal Frank on 07-27-2022 Eosinophils/100 WBC (Bld) 1.6 % . [facility] Erythrocyte distribution wid th Auto (RBC) [Ratio]Ordered By: Pal Frank on 07-27-2022 Erythrocyte distribution width (RBC) [Ratio] 14.4 % 11.9-15.3 [facility] Erythrocyte sedimentation ra te by Photometric methodOrdered By: Pal Frank on 07-27-2022 ESR Photometric method (Bld) [Velocity] 15 mm/hr 0-29 [facility] Estimated glomerular filtrat ion rate (GFR) non- AmericanOrdered By: Pal Frank on 07-27-2022 GFR/1.73 sq M.predicted among non-blacks MDRD (S/P/Bld) [Vol rate/Area] 16 mL/Min [facility] Globulin Calc (S) [Mass/Vol] Ordered By: Pal Frank on 07-27-2022 Globulin (S) [Mass/Vol] 2.3 g/dL [facility] Hematocrit Auto (Bld) [Volum e fraction]Ordered By: Pal Frank on 07-27-2022 Hematocrit (Bld) [Volume fraction] 26.9 % 34.0-46.4 [facility] Laboratory - Hematology and Cell countsOrdered By: Pal Frank on 07-27-2022 Nucleated RBC/100 WBC (Bld) [Ratio] 0.1 % 0-0.5 [facility] Lymphocytes Auto (Bld) [#/Vo l]Ordered By: Pal Frank on 07-27-2022 Lymphocytes (Bld) [#/Vol] 1.1 10*3/uL 1.00-4.8 [facility] Lymphocytes/100 WBC Auto (Bl d)Ordered By: Pal Frank on 07-27-2022 Lymphocytes/100 WBC (Bld) 25.4 % . [facility] MCH Auto (RBC) [Entitic mass ]Ordered By: Pal Frank on 07-27-2022 MCH (RBC) [Entitic mass] 31.2 pg 24.7-34.3 [facility] MCHC Auto (RBC) [Mass/Vol]Or dered By: Pal Frank on 07-27-2022 MCHC (RBC) [Mass/Vol] 32.3 g/dL 32.0-35.0 [facility] MCV Auto (RBC) [Entitic vol] Ordered By: Pal Frank on 07-27-2022 MCV (RBC) [Entitic vol] 96.3 fL 80-100 [facility] Monocytes Auto (Bld) [#/Vol] Ordered By: Pal Frank on 07-27-2022 Monocytes (Bld) [#/Vol] 0.5 10*3/uL 0.0-0.8 [facility] Monocytes/100 WBC Auto (Bld) Ordered By: Pal Frank on 07-27-2022 Monocytes/100 WBC (Bld) 12.3 % . [facility] Neutrophils Auto (Bld) [#/Vo l]Ordered By: Pal Frank on 07-27-2022 Neutrophils (Bld) [#/Vol] 2.5 10*3/uL 1.8-7.7 [facility] Neutrophils/100 WBC Auto (Bl d)Ordered By: Pal Frank on 07-27-2022 Neutrophils/100 WBC (Bld) 59.7 % . [facility] No Panel InformationOrdered By: Pal Frank on 07-27-2022 Estimated GFR () 19 mL/Min [facility] Comment on above: GFR estimated refere nce range: According to KDOQI guidelines, <60 ml/min/1.73m2 is sufficient to diagnose a patient with chronic kidney disease. Pharmacy Creatinine Clearance (Chem N/A [facility] Platelet mean volume Auto (B ld) [Entitic vol]Ordered By: Pal Frank on 07-27-2022 Platelet mean volume (Bld) [Entitic vol] 7.7 fL 6.3-10.7 [facility] Platelets Auto (Bld) [#/Vol] Ordered By: Pal Frank on 07-27-2022 Platelets (Bld) [#/Vol] 227 10*3/uL 150-450 [facility] Protein [Mass/volume] in Ser um or PlasmaOrdered By: Pal Frank on 07-27-2022 Protein [Mass/Vol] 5.5 g/dL 6.1-7.9 [facility] RBC Auto (Bld) [#/Vol]Ordere d By: Pal Frank on 07-27-2022 RBC (Bld) [#/Vol] 2.79 10*6/uL 3.60-5.00 [facility] Serum or plasma alanine olmstead otransferase measurement without P-5'-P (enzymatic activiOrdered By: Pal Frank on 07-27-2022 ALT No additional P-5'-P [Catalytic activity/Vol] 13 U/L 10-60 [facility] Serum or plasma albumin/glob ulin mass ratioOrdered By: Pal Frank on 07-27-2022 Albumin/Globulin [Mass ratio] 1.4 {ratio} [facility] Serum or plasma alkaline margareth sphatase measurement (enzymatic activity/volume)Ordered By: Pal Frank on 07-27-2022 ALP [Catalytic activity/Vol] 96 U/L 32-92 [facility] Serum or plasma aspartate am inotransferase measurement (enzymatic activity/volume)Ordered By: Pal Frank on 07-27-2022 AST [Catalytic activity/Vol] 16 U/L 10-42 [facility] Serum or plasma non-glucuron idated bilirubin measurement (mass/volume)Ordered By: Pal Frank on 07-27-2022 Bilirubin.indirect [Mass/Vol] TNP [facility] Comment on above: Test not performed Serum or plasma total biliru bin measurement (mass/volume)Ordered By: Pal Frank on 07-27-2022 Bilirubin [Mass/Vol] 0.4 mg/dL 0.3-1.[address] [facility] Basophils Auto (Bld) [#/Vol] Ordered By: Pal Frank on 06-01-2022 Basophils (Bld) [#/Vol] 0.0 10*3/uL 0.0-0.2 [facility] Basophils/100 WBC Auto (Bld) Ordered By: Pal Frank on 06-01-2022 Basophils/100 WBC (Bld) 1.1 % . [facility] Blood hemoglobin measurement (mass/volume)Ordered By: Pal Frank on 06-01-2022 Hemoglobin (Bld) [Mass/Vol] 8.9 g/dL 11.8-15.4 [facility] Blood leukocytes automated c ount (number/volume)Ordered By: Pal Frank on 06-01-2022 WBC (Bld) [#/Vol] 4.3 10*3/uL 4.5-11.0 [facility] Body fluid albumin measureme nt (mass/volume)Ordered By: Pal Frank on 06-01-2022 Albumin (Body fld) [Mass/Vol] 3.6 g/dL 3.2-5.5 [facility] Creatinine and Glomerular fi ltration rate.predicted panel (S/P/Bld)Ordered By: Pal Frank on 06-01-2022 Creatinine [Mass/Vol] 2.97 mg/dL 0.44-1.03 [facility] Direct bilirubin measurement Ordered By: aPl Frank on 06-01-2022 Bilirubin.direct [Mass/Vol] mg/dL 0.0-0.4 [facility] Eosinophils Auto (Bld) [#/Vo l]Ordered By: Pal Frank on 06-01-2022 Eosinophils (Bld) [#/Vol] 0.1 10*3/uL 0.0-0.45 [facility] Eosinophils/100 WBC Auto (Bl d)Ordered By: Pal Frank on 06-01-2022 Eosinophils/100 WBC (Bld) 3.1 % . [facility] Erythrocyte distribution wid th Auto (RBC) [Ratio]Ordered By: Pal Frank on 06-01-2022 Erythrocyte distribution width (RBC) [Ratio] 15.3 % 11.9-15.3 [facility] Erythrocyte sedimentation ra te by Photometric methodOrdered By: Pal Frank on 06-01-2022 ESR Photometric method (Bld) [Velocity] 17 mm/hr 0-29 [facility] Estimated glomerular filtrat ion rate (GFR) non- AmericanOrdered By: Pal Frank on 06-01-2022 GFR/1.73 sq M.predicted among non-blacks MDRD (S/P/Bld) [Vol rate/Area] 16 mL/Min [facility] Globulin Calc (S) [Mass/Vol] Ordered By: Pal Frank on 06-01-2022 Globulin (S) [Mass/Vol] 2.2 g/dL [facility] Hematocrit Auto (Bld) [Volum e fraction]Ordered By: Pal Frank on 06-01-2022 Hematocrit (Bld) [Volume fraction] 27.1 % 34.0-46.4 [facility] Laboratory - Hematology and Cell countsOrdered By: Pal Frank on 06-01-2022 Nucleated RBC/100 WBC (Bld) [Ratio] 0.1 % 0-0.5 [facility] Lymphocytes Auto (Bld) [#/Vo l]Ordered By: Pal Frank on 06-01-2022 Lymphocytes (Bld) [#/Vol] 0.9 10*3/uL 1.00-4.8 [facility] Lymphocytes/100 WBC Auto (Bl d)Ordered By: Pal Frank on 06-01-2022 Lymphocytes/100 WBC (Bld) 20.5 % . [facility] MCH Auto (RBC) [Entitic mass ]Ordered By: Pal Frank on 06-01-2022 MCH (RBC) [Entitic mass] 31.3 pg 24.7-34.3 [facility] MCHC Auto (RBC) [Mass/Vol]Or dered By: Pal Frank on 06-01-2022 MCHC (RBC) [Mass/Vol] 32.9 g/dL 32.0-35.0 [facility] MCV Auto (RBC) [Entitic vol] Ordered By: Pal Frank on 06-01-2022 MCV (RBC) [Entitic vol] 95.4 fL 80-100 [facility] Monocytes Auto (Bld) [#/Vol] Ordered By: Pal Frank on 06-01-2022 Monocytes (Bld) [#/Vol] 0.5 10*3/uL 0.0-0.8 [facility] Monocytes/100 WBC Auto (Bld) Ordered By: Pal Frank on 06-01-2022 Monocytes/100 WBC (Bld) 10.6 % . [facility] Neutrophils Auto (Bld) [#/Vo l]Ordered By: Pal Frank on 06-01-2022 Neutrophils (Bld) [#/Vol] 2.8 10*3/uL 1.8-7.7 [facility] Neutrophils/100 WBC Auto (Bl d)Ordered By: Pal Frank on 06-01-2022 Neutrophils/100 WBC (Bld) 64.7 % . [facility] No Panel InformationOrdered By: Pal Frank on 06-01-2022 Estimated GFR () 19 mL/Min [facility] Comment on above: GFR estimated refere nce range: According to KDOQI guidelines, <60 ml/min/1.73m2 is sufficient to diagnose a patient with chronic kidney disease. Pharmacy Creatinine Clearance (Chem N/A [facility] Platelet mean volume Auto (B ld) [Entitic vol]Ordered By: Pal Frank on 06-01-2022 Platelet mean volume (Bld) [Entitic vol] 8.8 fL 6.3-10.7 [facility] Platelets Auto (Bld) [#/Vol] Ordered By: Pal Frank on 06-01-2022 Platelets (Bld) [#/Vol] 226 10*3/uL 150-450 [facility] Protein [Mass/volume] in Ser um or PlasmaOrdered By: Pal Frank on 06-01-2022 Protein [Mass/Vol] 5.8 g/dL 6.1-7.9 [facility] RBC Auto (Bld) [#/Vol]Ordere d By: Pal Frank on 06-01-2022 RBC (Bld) [#/Vol] 2.84 10*6/uL 3.60-5.00 [facility] Serum or plasma alanine olmstead otransferase measurement without P-5'-P (enzymatic activiOrdered By: Pal Frank on 06-01-2022 ALT No additional P-5'-P [Catalytic activity/Vol] 10 U/L 10-60 [facility] Serum or plasma albumin/glob ulin mass ratioOrdered By: Pal Frank on 06-01-2022 Albumin/Globulin [Mass ratio] 1.6 {ratio} [facility] Serum or plasma alkaline margareth sphatase measurement (enzymatic activity/volume)Ordered By: Pal Frank on 06-01-2022 ALP [Catalytic activity/Vol] 75 U/L 32-92 [facility] Serum or plasma aspartate am inotransferase measurement (enzymatic activity/volume)Ordered By: Pal Frank on 06-01-2022 AST [Catalytic activity/Vol] 15 U/L 10-42 [facility] Serum or plasma non-glucuron idated bilirubin measurement (mass/volume)Ordered By: Pal Frank on 06-01-2022 Bilirubin.indirect [Mass/Vol] TNP [facility] Comment on above: Test not performed Serum or plasma total biliru bin measurement (mass/volume)Ordered By: Pal Frank on 06-01-2022 Bilirubin [Mass/Vol] mg/dL 0.3-1.[address] [facility] BASIC METABOLIC PANELon -0 Calcium [Mass/Vol] 8.7 mg/dL Normal 8.6-10.3 [facility] Comment on above: Order Comment: if no t done in ED No: Do not add to previous draw Performed By: #### 1 0070, [id number] #### [facility] [address] [place] [address], [place] Chloride [Moles/Vol] 105 mmol/L Normal 98-107 [facility] Comment on above: Order Comment: if no t done in ED No: Do not add to previous draw Performed By: #### 1 0070, 72050 #### [facility] [address] [place] [address], [place] CO2 [Moles/Vol] 22 mmol/L Normal 21-31 [facility] Comment on above: Order Comment: if no t done in ED No: Do not add to previous draw Performed By: #### 1 0070, 05810 #### [facility] [address] [place] [address], [place] Creatinine [Mass/Vol] 1.78 mg/dL High 0.60-1.20 [facility] Comment on above: Order Comment: if no t done in ED No: Do not add to previous draw Performed By: #### 1 0070, 16031 #### [facility] [address] [place] [address], [place] GFR/1.73 sq M predicted among blacks MDRD (S/P/Bld) [Vol rate/Area] 34 ml/min/1.73sq m Abnormal >60 [facility] Comment on above: Order Comment: if no t done in ED No: Do not add to previous draw Performed By: #### 1 0070, 89826 #### [facility] [address] [place] [address], [place] GFR/1.73 sq M predicted among non-blacks MDRD (S/P/Bld) [Vol rate/Area] 28 ml/min/1.73sq m Abnormal >60 [facility] Comment on above: Order Comment: if no t done in ED No: Do not add to previous draw Performed By: #### 1 0070, 06919 #### [facility] [address] [place] [address], [place] Glucose [Mass/Vol] 111 mg/dL High 70-100 [facility] Comment on above: Order Comment: if no t done in ED No: Do not add to previous draw Performed By: #### 1 0070, [id number] #### [facility] [address] [place] [address], [place] Potassium [Moles/Vol] 3.7 mmol/L Normal 3.5-5.1 [facility] Comment on above: Order Comment: if no t done in ED No: Do not add to previous draw Performed By: #### 1 0070, [id number] #### [facility] [address] [place] [address], [place] Sodium [Moles/Vol] 136 mmol/L Normal 136-145 [facility] Comment on above: Order Comment: if no t done in ED No: Do not add to previous draw Performed By: #### 1 0, 97971 #### [facility] [address] [place] [address], [facility] Urea nitrogen [Mass/Vol] 26 mg/dL High 7-25 [facility] Comment on above: Order Comment: if no t done in ED No: Do not add to previous draw Performed By: #### 1 0, 50450 #### [facility] [address] [place] [address], [facility] CBC COMPLETE BLOOD COUNTon 0 - Erythrocyte distribution width (RBC) [Ratio] 14.3 % Normal 11.5-15.0 [facility] Comment on above: Order Comment: if no t done in ED No: Do not add to previous draw Performed By: #### 1 0070, 99077 #### [facility] [address] [place] [address], [place] Hematocrit (Bld) [Volume fraction] 27.4 % Low 36.0-45.0 [facility] Comment on above: Order Comment: if no t done in ED No: Do not add to previous draw Performed By: #### 1 0070, 94037 #### [facility] [address] [place] [address], [facility] Hemoglobin (Bld) [Mass/Vol] 8.1 g/dL Low 12.0-15.0 [facility] Comment on above: Order Comment: if no t done in ED No: Do not add to previous draw Performed By: #### 1 0070, 62658 #### [facility] [address] [facility] [address], [facility] MCH (RBC) [Entitic mass] 29.2 pg Normal 27.0-33.0 [facility] Comment on above: Order Comment: if no t done in ED No: Do not add to previous draw Performed By: #### 1 0, 19906 #### [facility] [address] [place] [address], [facility] MCHC (RBC) [Mass/Vol] 29.6 g/dL Low 32.0-35.0 [facility] Comment on above: Order Comment: if no t done in ED No: Do not add to previous draw Performed By: #### 1 0, 49642 #### [facility] [address] [place] [address], [facility] MCV (RBC) [Entitic vol] 98.9 fL High 82.0-98.0 [facility] Comment on above: Order Comment: if no t done in ED No: Do not add to previous draw Performed By: #### 1 0, 03470 #### [facility] [address] Nucleated RBC/100 WBC (Bld) [Ratio] 0 % Normal 0-0 [facility] Comment on above: Order Comment: if no t done in ED No: Do not add to previous draw Performed By: #### 1 0070, [id number] #### [facility] [address] [place] [address], [facility] PLAT CNT 175 10*3/uL Normal 150-400 [facility] Comment on above: Order Comment: if no t done in ED No: Do not add to previous draw Performed By: #### 1 0070, 05265 #### [facility] [address] [place] [address], [place] RBC (Bld) [#/Vol] 2.77 10*6/uL Low 3.80-5.00 [facility] Comment on above: Order Comment: if no t done in ED No: Do not add to previous draw Performed By: #### 1 0070, 76869 #### [facility] [address] [place] [address], [place] WBC (Bld) [#/Vol] 9.98 10*3/uL Normal 4.00-10.60 [facility] Comment on above: Order Comment: if no t done in ED No: Do not add to previous draw Performed By: #### 1 0070, 14326 #### [facility] [address] [place] [address], [place] BASIC METABOLIC PANELon 12-3 Calcium [Mass/Vol] 8.3 mg/dL Low 8.6-10.3 [facility] Comment on above: Order Comment: if no t done in ED No: Do not add to previous draw Performed By: #### 1 0070, 58802 #### [facility] [address] [place] [address], [place] Chloride [Moles/Vol] 106 mmol/L Normal 98-107 [facility] Comment on above: Order Comment: if no t done in ED No: Do not add to previous draw Performed By: #### 1 0070, 71262 #### [facility] [address] [place] [address], [place] CO2 [Moles/Vol] 24 mmol/L Normal 21-31 [facility] Comment on above: Order Comment: if no t done in ED No: Do not add to previous draw Performed By: #### 1 0070, 83242 #### [facility] [address] [place] [address], [place] Creatinine [Mass/Vol] 1.70 mg/dL High 0.60-1.20 [facility] Comment on above: Order Comment: if no t done in ED No: Do not add to previous draw Performed By: #### 1 0070, [id number] #### [facility] [address] [place] [address], [place] GFR/1.73 sq M predicted among blacks MDRD (S/P/Bld) [Vol rate/Area] 36 ml/min/1.73sq m Abnormal >60 [facility] Comment on above: Order Comment: if no t done in ED No: Do not add to previous draw Performed By: #### 1 0070, 27236 #### [facility] [address] [place] [address], [facility] GFR/1.73 sq M predicted among non-blacks MDRD (S/P/Bld) [Vol rate/Area] 30 ml/min/1.73sq m Abnormal >60 [facility] Comment on above: Order Comment: if no t done in ED No: Do not add to previous draw Performed By: #### 1 0070, 33804 #### [facility] [address] [place] [address], [place] Glucose [Mass/Vol] 100 mg/dL Normal 70-100 [facility] Comment on above: Order Comment: if no t done in ED No: Do not add to previous draw Performed By: #### 1 0070, 21283 #### [facility] [address] [place] [address], [place] Potassium [Moles/Vol] 3.9 mmol/L Normal 3.5-5.1 [facility] Comment on above: Order Comment: if no t done in ED No: Do not add to previous draw Performed By: #### 1 0070, 58375 #### [facility] [address] [place] [address], [place] Sodium [Moles/Vol] 137 mmol/L Normal 136-145 [facility] Comment on above: Order Comment: if no t done in ED No: Do not add to previous draw Performed By: #### 1 0, 80912 #### [facility] [address] [place] [address], [facility] Urea nitrogen [Mass/Vol] 27 mg/dL High 7-25 [facility] Comment on above: Order Comment: if no t done in ED No: Do not add to previous draw Performed By: #### 1 0070, 65230 #### [facility] [address] [place] [address], [facility] CBC COMPLETE BLOOD COUNTon Erythrocyte distribution width (RBC) [Ratio] 14.3 % Normal 11.5-15.0 [facility] Comment on above: Order Comment: if no t done in ED No: Do not add to previous draw Performed By: #### 1 69, 50470 #### [facility] [address] [place] [address], [facility] Hematocrit (Bld) [Volume fraction] 26.0 % Low 36.0-45.0 [facility] Comment on above: Order Comment: if no t done in ED No: Do not add to previous draw Performed By: #### 1 0, 26805 #### [facility] [address] [place] [address], [place] Hemoglobin (Bld) [Mass/Vol] 8.1 g/dL Low 12.0-15.0 [facility] Comment on above: Order Comment: if no t done in ED No: Do not add to previous draw Performed By: #### 1 0, 10731 #### [facility] [address] [place] [address], [place] MCH (RBC) [Entitic mass] 29.9 pg Normal 27.0-33.0 [facility] Comment on above: Order Comment: if no t done in ED No: Do not add to previous draw Performed By: #### 1 0070, 79700 #### [facility] [address] [place] [address], [facility] MCHC (RBC) [Mass/Vol] 31.2 g/dL Low 32.0-35.0 [facility] Comment on above: Order Comment: if no t done in ED No: Do not add to previous draw Performed By: #### 1 0070, 90161 #### [facility] [address] [place] [address], [facility] MCV (RBC) [Entitic vol] 95.9 fL Normal 82.0-98.0 [facility] Comment on above: Order Comment: if no t done in ED No: Do not add to previous draw Performed By: #### 1 0070, 40994 #### [facility] [address] [place] [address], [facility] Nucleated RBC/100 WBC (Bld) [Ratio] 0 % Normal 0-0 [facility] Comment on above: Order Comment: if no t done in ED No: Do not add to previous draw Performed By: #### 1 0, 02346 #### [facility] [address] [place] [address], [facility] PLAT CNT 165 10*3/uL Normal 150-400 [facility] Comment on above: Order Comment: if no t done in ED No: Do not add to previous draw Performed By: #### 1 0070, 51733 #### [facility] [address] [place] [address], [facility] RBC (Bld) [#/Vol] 2.71 10*6/uL Low 3.80-5.00 [facility] Comment on above: Order Comment: if no t done in ED No: Do not add to previous draw Performed By: #### 1 0070, 17417 #### [facility] [address] [place] [address], [facility] WBC (Bld) [#/Vol] 7.82 10*3/uL Normal 4.00-10.60 [facility] Comment on above: Order Comment: if no t done in ED No: Do not add to previous draw Performed By: #### 1 0070, 93123 #### [facility] [address] [place] [address], [facility] Cardiovascular Lab Reporton 11-05-2019 Cardiovascular Lab Report [facility] Patient Name: Padma Guevara [facility] MR #: [id number] Department of Physician: Brayan Arnett M.D. Division of Service Date: 11/05/2019 Cardiology Birthdate: 1950 Adult Cardiovascular Room #: 3AB 805624 Services [facility] [address] [place] [address] Cardiovascular Laboratory Report FINAL IMPRESSIONS: 1. Normal right-sided heart pressures. 2. Mildly elevated pulmonary capillary wedge pressure. 3. Normal cardiac output/cardiac index. 4. Mild systemic hypotension. RECOMMENDATIONS: 1. Consider alternate etiologies for the patient's shortness of breath mainly pulmonary. 2. Further recommendations deferred to the inpatient services. PROCEDURES: Ultrasound-guided access of the right internal jugular vein, right heart catheterization. METHODS: After risks, benefits, and alternatives were explained, written informed consent was obtained. The patient was prepped and draped in usual sterile fashion over the right neck. Using 1% lidocaine solution, local infiltration anesthesia was achieved. Using modified Seldinger technique, a micropuncture kit and under ultrasound guidance, access of the right internal jugular vein was obtained. A 6-Andorran 11 cm sheath was inserted without difficulty. A Rojo catheter was used for right heart catheterization measuring pressures in the right atrium, right ventricle, pulmonary artery, and pulmonary capillary wedge positions. Oxygen saturations were obtained. Cardiac output/cardiac index was calculated using the Lina principle. The Rojo catheter was removed. The sheath was removed with application of manual pressure to achieve optimal hemostasis. Overall, the patient tolerated the procedure well. There were no overt complications. She was to be transferred to the hospital room in stable condition. FINDINGS: Hemodynamics: RA 5. RV 26/5, 7. PA 26/4 (18). PCWP 15. TPG 3. AO 85/52. Cardiac output 4.06/cardiac index 2.68. AO sat 90%/PA sat 45%. INDICATIONS: Dyspnea, elevated right-sided pressures on echocardiogram. Electronically Signed by: Luis Alberto Fiore M.D. 11/19/2019 02:43 P Luis Alberto Fiore M.D. Date Dict: 11/05/2019/11:39 A/Luis Alberto Fiore M.D. Date Trans: 11/05/2019 12:11 P/mmo [id number] cc: Eldon Toussaint M.D. [address] [facility] [address] Marcos Rahman M.D. [address] [place] [phone] Normal [facility] MAGNESIUM BLOODon 11-05-2019 Magnesium [Mass/Vol] 1.9 mg/dL Normal 1.9-2.7 [facility] Comment on above: Order Comment: if no t done in ED No: Do not add to previous draw Performed By: #### 1 0070, 12920 #### [facility] [address] [place] [address], [facility] PHOSPHORUS BLOODon 9 Phosphate [Mass/Vol] 2.9 mg/dL Normal 2.5-5.0 [facility] Comment on above: Order Comment: if no t done in ED No: Do not add to previous draw Performed By: #### 1 0070, 44656 #### [facility] [address] [place] [address], [facility] TROPONIN-Ion 11-05-2019 Troponin I.cardiac [Mass/Vol] 0.03 ng/mL Normal 0.00-0.04 [facility] Comment on above: Order Comment: if no t done in ED No: Do not add to previous draw Result Comment: REFE RENCE RANGES: 0.00 - 0.04 ng/ml NORMAL 0.05 - 0.50 ng/ml INDETERMINATE > 0.50 ng/ml CONSISTENT WITH AN M.I. Performed By: #### 1 0070, 93171 #### [facility] [address] [facility] Troponin I.cardiac [Mass/Vol] 0.03 ng/mL Normal 0.00-0.04 [facility] Comment on above: Result Comment: REFE RENCE RANGES: 0.00 - 0.04 ng/ml NORMAL 0.05 - 0.50 ng/ml INDETERMINATE > 0.50 ng/ml CONSISTENT WITH AN M.I. Performed By: #### 1 0070, 18862 #### [facility] [address] [facility] APTTon 11-04-2019 aPTT Coag (Bld) [Time] 40.1 s High 25.0-35.0 [facility] Comment on above: Order Comment: No: D o not add to previous draw Result Comment: ALL RESULTS MUST BE INTERPRETED WITH RESPECT TO BLOOD DRAWING ARTIFACT OR DILUTION ERROR OF ANTICOAGULANT AT THE TIME OF SAMPLING. THE APTT SHOULD NOT BE USED TO MONITOR UNFRACTIONATED HEPARIN THERAPY, THIS LABORATORY NO LONGER HAS AN ESTABLISHED THERAPEUTIC RANGE BASED ON THE APTT. IT IS RECOMMENDED THAT THE [facility] - HEPARIN ASSAY (ANTI-XA ACTIVITY) BE USED FOR THIS PURPOSE. Performed By: #### 8 5499 #### [facility] [address] aPTT Coag (Bld) [Time] 81.4 s Critically high 25.0-35. 0 [facility] Comment on above: Order Comment: No: D o not add to previous draw Result Comment: ALL RESULTS MUST BE INTERPRETED WITH RESPECT TO BLOOD DRAWING ARTIFACT OR DILUTION ERROR OF ANTICOAGULANT AT THE TIME OF SAMPLING. THE APTT SHOULD NOT BE USED TO MONITOR UNFRACTIONATED HEPARIN THERAPY, THIS LABORATORY NO LONGER HAS AN ESTABLISHED THERAPEUTIC RANGE BASED ON THE APTT. IT IS RECOMMENDED THAT THE UFH - HEPARIN ASSAY (ANTI-XA ACTIVITY) BE USED FOR THIS PURPOSE. CLINICAL SIGNIFICANCE OF THE PTT RESULT IS QUESTIONABLE IN THE PRESENCE OF HEPARIN. RESULTS CHECKED AND CALLED. ACCURATELY READ BACK BY JANIE ALBA RN @[phone] Performed By: #### 8 5499 #### [facility] [address] [place] [address], [place] BASIC METABOLIC PANELon 12-3 Calcium [Mass/Vol] 8.7 mg/dL Normal 8.6-10.3 [facility] Comment on above: Order Comment: No: D o not add to previous draw Performed By: #### 8 5499 #### [facility] [address] [place] [address], [place] Chloride [Moles/Vol] 109 mmol/L High 98-107 [facility] Comment on above: Order Comment: No: D o not add to previous draw Performed By: #### 8 5499 #### [facility] [address] [place] [address], [place] CO2 [Moles/Vol] 25 mmol/L Normal 21-31 [facility] Comment on above: Order Comment: No: D o not add to previous draw Performed By: #### 8 5499 #### [facility] [address] [place] [address], [place] Creatinine [Mass/Vol] 1.83 mg/dL High 0.60-1.20 [facility] Comment on above: Order Comment: No: D o not add to previous draw Performed By: #### 8 5499 #### [facility] [address] [place] [address], [place] GFR/1.73 sq M predicted among blacks MDRD (S/P/Bld) [Vol rate/Area] 33 ml/min/1.73sq m Abnormal >60 [facility] Comment on above: Order Comment: No: D o not add to previous draw Performed By: #### 8 5499 #### [facility] [address] [place] [address], [place] GFR/1.73 sq M predicted among non-blacks MDRD (S/P/Bld) [Vol rate/Area] 27 ml/min/1.73sq m Abnormal >60 [facility] Comment on above: Order Comment: No: D o not add to previous draw Performed By: #### 8 5499 #### [facility] [address] [place] [address], [facility] Glucose [Mass/Vol] 79 mg/dL Normal 70-100 [facility] Comment on above: Order Comment: No: D o not add to previous draw Performed By: #### 8 5499 #### [facility] [address] [facility] [place] [address], [facility] Potassium [Moles/Vol] 3.4 mmol/L Low 3.5-5.1 [facility] Comment on above: Order Comment: No: D o not add to previous draw Performed By: #### 8 5499 #### [facility] [address] [place] [address], [facility] Sodium [Moles/Vol] 140 mmol/L Normal 136-145 [facility] Comment on above: Order Comment: No: D o not add to previous draw Performed By: #### 8 5499 #### [facility] [address] [place] [address], [facility] Urea nitrogen [Mass/Vol] 35 mg/dL High 7-25 [facility] Comment on above: Order Comment: No: D o not add to previous draw Performed By: #### 8 5499 #### [facility] [address] [facility] CBC W/DIFFon 11-04-2019 ABS BASOPHILS 0.0 10*3/uL Normal 0.0-0.2 [facility] Comment on above: Order Comment: No: D o not add to previous draw Performed By: #### 8 5499 #### [facility] [address] [place] [address], [facility] ABS IMM GRANS 0.0 10*3/uL Normal 0.0-0.2 [facility] Comment on above: Order Comment: No: D o not add to previous draw Performed By: #### 8 5499 #### [facility] [address] [place] [address], [facility] ABS NEUTROPHILS 3.5 10*3/uL Normal 1.6-7.6 [facility] Comment on above: Order Comment: No: D o not add to previous draw Performed By: #### 8 5499 #### [facility] [address] [place] [address], [facility] Basophils/100 WBC (Bld) 0.4 % Normal 0.0-1.0 T [facility] Comment on above: Order Comment: No: D o not add to previous draw Performed By: #### 8 5499 #### [facility] [address] [place] [id number], [facility] Eosinophils (Bld) [#/Vol] 0.0 10*3/uL Normal 0.0-0.5 [facility] Comment on above: Order Comment: No: D o not add to previous draw Performed By: #### 8 5499 #### [facility] [address] [place] [id number], [facility] Eosinophils/100 WBC (Bld) 0.2 % Normal 0.0-6.0 [facility] Comment on above: Order Comment: No: D o not add to previous draw Performed By: #### 8 5499 #### [facility] [address] [place] [address], [facility] Erythrocyte distribution width (RBC) [Ratio] 14.4 % Normal 11.5-15.0 [facility] Comment on above: Order Comment: No: D o not add to previous draw Performed By: #### 8 5499 #### [facility] [address] [place] [id number], [facility] Hematocrit (Bld) [Volume fraction] 26.6 % Low 36.0-45.0 [facility] Comment on above: Order Comment: No: D o not add to previous draw Performed By: #### 8 5499 #### [facility] [address] [place] [address], [facility] Hemoglobin (Bld) [Mass/Vol] 8.0 g/dL Low 12.0-15.0 [facility] Comment on above: Order Comment: No: D o not add to previous draw Performed By: #### 8 5499 #### [facility] [address] [place] [address], [facility] IMMATURE GRANS 0.4 % Normal 0.0-1.0 [facility] Comment on above: Order Comment: No: D o not add to previous draw Performed By: #### 8 5499 #### [facility] [address] [place] [address], [facility] Lymphocytes (Bld) [#/Vol] 0.7 10*3/uL Low 1.2-4.0 [facility] Comment on above: Order Comment: No: D o not add to previous draw Performed By: #### 8 5499 #### [facility] [address] [place] [address], [facility] Lymphocytes/100 WBC (Bld) 14.7 % Low 20.0-45.0 [facility] Comment on above: Order Comment: No: D o not add to previous draw Performed By: #### 8 5499 #### [facility] [address] [place] [address], [facility] MCH (RBC) [Entitic mass] 29.1 pg Normal 27.0-33.0 [facility] Comment on above: Order Comment: No: D o not add to previous draw Performed By: #### 8 5499 #### [facility] [address] [place] [address], [facility] MCHC (RBC) [Mass/Vol] 30.1 g/dL Low 32.0-35.0 [facility] Comment on above: Order Comment: No: D o not add to previous draw Performed By: #### 8 5499 #### [facility] [address] [place] [address], [facility] MCV (RBC) [Entitic vol] 96.7 fL Normal 82.0-98.0 T [facility] Comment on above: Order Comment: No: D o not add to previous draw Performed By: #### 8 5499 #### [facility] [address] [place] [address], [facility] Monocytes (Bld) [#/Vol] 0.5 10*3/uL Normal 0.1-1.0 [facility] Comment on above: Order Comment: No: D o not add to previous draw Performed By: #### 8 5499 #### [facility] [address] [place] [address], [facility] MONOS 11.2 % Normal 5.0-12.0 [facility] Comment on above: Order Comment: No: D o not add to previous draw Performed By: #### 8 5499 #### [facility] [address] [place] [address], [facility] Neutrophils/100 WBC (Bld) 73.1 % High 40.0-72.0 [facility] Comment on above: Order Comment: No: D o not add to previous draw Performed By: #### 8 5499 #### [facility] [address] [place] [id number], [facility] Nucleated RBC/100 WBC (Bld) [Ratio] 0 % Normal 0-0 [facility] Comment on above: Order Comment: No: D o not add to previous draw Performed By: #### 8 5499 #### [facility] [address] [place] [address], [place] PLAT CNT 133 10*3/uL Low 150-400 [facility] Comment on above: Order Comment: No: D o not add to previous draw Performed By: #### 8 5499 #### [facility] [address] RBC (Bld) [#/Vol] 2.75 10*6/uL Low 3.80-5.00 [facility] Comment on above: Order Comment: No: D o not add to previous draw Performed By: #### 8 5499 #### [facility] [address] [place] [address], [facility] WBC (Bld) [#/Vol] 4.75 10*3/uL Normal 4.00-10.60 [facility] Comment on above: Order Comment: No: D o not add to previous draw Performed By: #### 8 5499 #### [address] MAGNESIUM BLOODon 11-04-2019 Magnesium [Mass/Vol] 1.9 mg/dL Normal 1.9-2.7 [facility] Comment on above: Order Comment: No: D o not add to previous draw Performed By: #### 8 5499 #### [address] NM VENTILATION PERFUSION CLARISSA G SCANon 11-04-2019 NM VENTILATION PERFUSION LUNG SCAN [facility] Department of Radiology [address] [place] [phone] Patient Name: PADMA GUEVARA : 1950 Sex: F Age: Race: White Pt. 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 Patient has SOB, couch, sinus infection and is a smoker. QUESTION FOR THE RADIOLOGIST: R/O Pulmonary Emboli PROTOCOL: After inhalation of aerosolized Tc-99m DTPA for the ventilation study, eight static images of the lung field were acquired in the anterior, posterior, left anterior oblique, right posterior oblique, right anterior oblique, left posterior oblique, left lateral, and right lateral projections. Immediately following the ventilation exam, the patient was injected intravenously with 5.4 mCi of Tc-99m MAA for the perfusion study. Static images of the lung field were acquired in gagan same orientation and obliquity of the initial ventilation images. Ventilation and perfusion images were reviewed with the patient's most recent chest x-ray on November 04, 2019. RADIOPHARMACEUTICAL DOSE: NM TC99M AEROSOL DTPA, 44.0 Millicuries, Inhalation TC-99M MAA, 5.4 Millicuries, Intravenous COMPARISON: None. FINDINGS: No V/Q mismatches are identified. IMPRESSION: Low probability of pulmonary embolus.. Electronically signed by:Pal Foley. Transcribed by: [email or web address], User Resident: Electronically Signed by: PAL FOLEY @ 11/04/2019 12:30 PM Normal [facility] Comment on above: Order Comment: if no t done in ED No: Do not add to previous draw PHOSPHORUS BLOODon 9 Phosphate [Mass/Vol] 3.3 mg/dL Normal 2.5-5.0 [facility] Comment on above: Order Comment: No: D o not add to previous draw Performed By: #### 8 [id number] #### [facility] [address] [place] [address], [facility] POC GLUCOSE LABon 11-04-2019 Glucose [Mass/Vol] 83 mg/dL Normal 70-100 [facility] Comment on above: Performed By: #### 8 5499 #### [address] [address], [facility] PORTABLE CHEST 1 VIEWon 10-08 PORTABLE CHEST 1 VIEW [facility] Department of Radiology [address] [place] [phone] Patient Name: PADMA GUEVARA : 1950 Sex: F Age: Race: White Pt. Location: [id number] Patient Status: I Ordered Date: 11/04/2019 8:40:00 AM Completed Date: 11/04/2019 09:53 AM Requesting Provider: REX MCKEE Attending Provider: TARIQ ELLIOTT Report Copy To: Signs & Symptoms: Shortness of Breath History: See Comments Comments: R/O Pulmonary Edema, rule out PE Exam: PORTABLE CHEST 1 VIEW PORTABLE CHEST 1 VIEW 11/04/2019 9:53 AM EST SIGNS AND SYMPTOMS: Shortness of Breath TECHNOLOGIST COMMENTS: Shortness of breath QUESTION FOR THE RADIOLOGIST: R/O Pulmonary Edema, rule out PE PROTOCOL: AP(PA) view was obtained. COMPARISON: Chest x-ray 11/02/2019, 03/20/2019 FINDINGS: Cardioversion device with leads in the right atrium and right ventricle, unchanged. Right axillary surgical clips. Cardiac mediastinal silhouette unchanged. No focal consolidation, pleural effusion, or pneumothorax. IMPRESSION: No acute cardiopulmonary abnormality, no radiographic evidence of pulmonary edema. Approved by:Florence Barr on 11/04/2019 11:01 AM EST. I, Terry Adhikari, have reviewed the images and report and concur with these findings. Electronically signed by:Terry Adhikari. Transcribed by: [email or web address], User Resident: FLORENCE BARR Electronically Signed by: TERRY ADHIKARI @ 11/04/2019 11:01 AM I personally read this/these film(s) with this resident Normal [facility] Comment on above: Order Comment: if no t done in ED No: Do not add to previous draw PROTHROMBIN TIMEon 9 INR Coag (PPP) [Relative time] 1.03 {INR} Normal 0.91-1.16 [facility] Comment on above: Order Comment: No: D o not add to previous draw Result Comment: ACCC P RECOMMENDED INR FOR WARFARIN THERAPY ------- CONDITION INR PROPHYLAXIS OF VENOUS THROMBOSIS 2-3 (HIGH-RISK SURGERY) TREATMENT OF VENOUS THROMBOSIS 2-3 TREATMENT OF PULMONARY EMBOLISM 2-3 PREVENTION OF SYSTEMIC EMBOLISM: 2-3 ACUTE MYOCARDIAL INFARCTION TISSUE HEART VALVES VALVULAR HEART DISEASE ATRIAL FIBRILLATION RECURRENT SYSTEMIC EMBOLISM MECHANICAL HEART VALVE 2.5-3.5 FROM: ORAL ANTICOAGULANTS. MECHANISM OF ACTION, CLINICAL EFFECTIVENESS, AND OPTIMAL THERAPEUTIC RANGE. CHEST 1995;108:231S-246S. Performed By: #### 8 [id number] #### [place] [address], [facility] PT Coag (PPP) [Time] 13.5 s Normal 12.3-14.8 [facility] Comment on above: Order Comment: No: D o not add to previous draw Result Comment: ALL RESULTS MUST BE INTERPRETED WITH RESPECT TO BLOOD DRAWING ARTIFACT OR DILUTION ERROR OF ANTICOAGULANT AT THE TIME OF SAMPLING. Performed By: #### 8 5499 #### [facility] [address] UFH HEPARIN ASSAYon 11-04-20 UNFRACTIONATED HEPARIN 0.16 IU/mL Critically low 0.30-0.70 [facility] Comment on above: Result Comment: Trego roxaban and Apixaban will interfere with the anti Xa assay used to monitor UFH and LMWH. UFH ADDED PER PROTOCOL RESULTS CHECKED AND CALLED. ACCURATELY READ BACK BY JANIE ALBA RN @0130 Performed By: #### 8 [id number] #### [facility] [address] [facility] APTTon 11-03-2019 aPTT Coag (Bld) [Time] 84.7 s Critically high 25.0-35. 0 [facility] Comment on above: Order Comment: No: D o not add to previous draw Result Comment: ALL RESULTS MUST BE INTERPRETED WITH RESPECT TO BLOOD DRAWING ARTIFACT OR DILUTION ERROR OF ANTICOAGULANT AT THE TIME OF SAMPLING. THE APTT SHOULD NOT BE USED TO MONITOR UNFRACTIONATED HEPARIN THERAPY, THIS LABORATORY NO LONGER HAS AN ESTABLISHED THERAPEUTIC RANGE BASED ON THE APTT. IT IS RECOMMENDED THAT THE UFH - HEPARIN ASSAY (ANTI-XA ACTIVITY) BE USED FOR THIS PURPOSE. RESULTS CHECKED AND CALLED. ACCURATELY READ BACK BY KANU GONZALEZ RN @ 1283 CLINICAL SIGNIFICANCE OF THE PTT RESULT IS QUESTIONABLE IN THE PRESENCE OF HEPARIN. Performed By: #### 6 1405 #### [facility] [address] [place] [address], [facility] aPTT Coag (Bld) [Time] 95.7 s Critically high 25.0-35. 0 [facility] Comment on above: Order Comment: No: D o not add to previous draw Result Comment: ALL RESULTS MUST BE INTERPRETED WITH RESPECT TO BLOOD DRAWING ARTIFACT OR DILUTION ERROR OF ANTICOAGULANT AT THE TIME OF SAMPLING. THE APTT SHOULD NOT BE USED TO MONITOR UNFRACTIONATED HEPARIN THERAPY, THIS LABORATORY NO LONGER HAS AN ESTABLISHED THERAPEUTIC RANGE BASED ON THE APTT. IT IS RECOMMENDED THAT THE UFH - HEPARIN ASSAY (ANTI-XA ACTIVITY) BE USED FOR THIS PURPOSE. RESULTS CHECKED AND CALLED. ACCURATELY READ BACK BY KANU GONZALEZ RN AT 0737. CLINICAL SIGNIFICANCE OF THE PTT RESULT IS QUESTIONABLE IN THE PRESENCE OF HEPARIN. Performed By: #### 6 1405 #### [facility] [address] [place] [address], [facility] BASIC METABOLIC PANELon 12-2 Calcium [Mass/Vol] 8.5 mg/dL Low 8.6-10.3 [facility] Comment on above: Order Comment: No: D o not add to previous draw Performed By: #### 6 1405 #### [facility] [address] [place] [address], [facility] Chloride [Moles/Vol] 109 mmol/L High 98-107 [facility] Comment on above: Order Comment: No: D o not add to previous draw Performed By: #### 6 1405 #### [facility] [address] [place] [address], [facility] CO2 [Moles/Vol] 23 mmol/L Normal 21-31 [facility] Comment on above: Order Comment: No: D o not add to previous draw Performed By: #### 6 1405 #### [facility] [address] [place] [address], [facility] Creatinine [Mass/Vol] 1.89 mg/dL High 0.60-1.20 [facility] Comment on above: Order Comment: No: D o not add to previous draw Performed By: #### 6 1405 #### [facility] [address] [place] [address], [facility] GFR/1.73 sq M predicted among blacks MDRD (S/P/Bld) [Vol rate/Area] 32 ml/min/1.73sq m Abnormal >60 [facility] Comment on above: Order Comment: No: D o not add to previous draw Performed By: #### 6 1405 #### [facility] [address] [place] [address], [facility] GFR/1.73 sq M predicted among non-blacks MDRD (S/P/Bld) [Vol rate/Area] 27 ml/min/1.73sq m Abnormal >60 [facility] Comment on above: Order Comment: No: D o not add to previous draw Performed By: #### 6 1405 #### [facility] [address] [place] [address], [facility] Glucose [Mass/Vol] 80 mg/dL Normal 70-100 [facility] Comment on above: Order Comment: No: D o not add to previous draw Performed By: #### 6 1405 #### [facility] [address] [place] [id number], [facility] Potassium [Moles/Vol] 3.6 mmol/L Normal 3.5-5.1 [facility] Comment on above: Order Comment: No: D o not add to previous draw Performed By: #### 6 1405 #### [facility] [address] [place] [id number], [facility] Sodium [Moles/Vol] 140 mmol/L Normal 136-145 [facility] Comment on above: Order Comment: No: D o not add to previous draw Performed By: #### 6 1405 #### [facility] [address] [place] [address], [facility] Urea nitrogen [Mass/Vol] 47 mg/dL High 7-25 [facility] Comment on above: Order Comment: No: D o not add to previous draw Performed By: #### 6 1405 #### [facility] [address] [place] [address], [facility] CBC W/DIFFon 11-03-2019 ABS BASOPHILS 0.0 10*3/uL Normal 0.0-0.2 [facility] Comment on above: Order Comment: , Spe cial Instructions: hand injury rule out fracture , Special Instructions: hand injury rule out fracture , , , Ordering Provider - DIANE TINEO MD , Performed By: #### 5 0103 ####[facility] ABS IMM GRANS 0.0 10*3/uL Normal 0.0-0.2 [facility] Comment on above: Order Comment: , Spe cial Instructions: hand injury rule out fracture , Special Instructions: hand injury rule out fracture , , , Ordering Provider - DIANE TINEO MD , Performed By: #### 5 0103 ####[facility] ABS NEUTROPHILS 5.9 10*3/uL Normal 1.6-7.6 [facility] Comment on above: Order Comment: , Spe cial Instructions: hand injury rule out fracture , Special Instructions: hand injury rule out fracture , , , Ordering Provider - DIANE TINEO MD , Performed By: #### 5 0103 ####[facility] Basophils/100 WBC (Bld) 0.3 % Normal 0.0-1.0 [facility] Comment on above: Order Comment: , Spe cial Instructions: hand injury rule out fracture , Special Instructions: hand injury rule out fracture , , , Ordering Provider - DIANE TINEO MD , Performed By: #### 5 0103 ####[facility] [place] [address] Eosinophils (Bld) [#/Vol] 0.0 10*3/uL Normal 0.0-0.5 [facility] Comment on above: Order Comment: , Spe cial Instructions: hand injury rule out fracture , Special Instructions: hand injury rule out fracture , , , Ordering Provider - DIANE TINEO MD , Performed By: #### 5 0103 ####[facility] Eosinophils/100 WBC (Bld) 0.0 % Normal 0.0-6.0 [facility] Comment on above: Order Comment: , Spe cial Instructions: hand injury rule out fracture , Special Instructions: hand injury rule out fracture , , , Ordering Provider - DIANE TINEO MD , Performed By: #### 5 102 ####[facility] Erythrocyte distribution width (RBC) [Ratio] 14.7 % Normal 11.5-15.0 [facility] Comment on above: Order Comment: , Spe cial Instructions: hand injury rule out fracture , Special Instructions: hand injury rule out fracture , , , Ordering Provider - DIANE TINEO MD , Performed By: #### 5 0103 ####[facility] Hematocrit (Bld) [Volume fraction] 26.5 % Low 36.0-45.0 [facility] Comment on above: Order Comment: , Spe cial Instructions: hand injury rule out fracture , Special Instructions: hand injury rule out fracture , , , Ordering Provider Mark TINEO MD , Performed By: #### 5 102 ####[facility] [place] [address], [facility] Hemoglobin (Bld) [Mass/Vol] 8.1 g/dL Low 12.0-15.0 [facility] Comment on above: Order Comment: , Spe cial Instructions: hand injury rule out fracture , Special Instructions: hand injury rule out fracture , , , Ordering Provider Mark TINEO MD , Performed By: #### 5 0103 ####[facility] IMMATURE GRANS 0.5 % Normal 0.0-1.0 [facility] Comment on above: Order Comment: , Spe cial Instructions: hand injury rule out fracture , Special Instructions: hand injury rule out fracture , , , Ordering Kirt TINEO MD , Performed By: #### 5 102 ####[facility] Lymphocytes (Bld) [#/Vol] 1.0 10*3/uL Low 1.2-4.0 [facility] Comment on above: Order Comment: , Spe cial Instructions: hand injury rule out fracture , Special Instructions: hand injury rule out fracture , , , Ordering Kirt TINEO MD , Performed By: #### 5 102 ####[facility] Lymphocytes/100 WBC (Bld) 13.4 % Low 20.0-45.0 [facility] Comment on above: Order Comment: , Spe cial Instructions: hand injury rule out fracture , Special Instructions: hand injury rule out fracture , , , Ordering Kirt TINEO MD , Performed By: #### 5 102 ####[facility] MCH (RBC) [Entitic mass] 29.7 pg Normal 27.0-33.0 [facility] Comment on above: Order Comment: , Spe cial Instructions: hand injury rule out fracture , Special Instructions: hand injury rule out fracture , , , Ordering Provider Mark TINEO MD , Performed By: #### 5 0103 ####[facility] MCHC (RBC) [Mass/Vol] 30.6 g/dL Low 32.0-35.0 [facility] Comment on above: Order Comment: , Spe cial Instructions: hand injury rule out fracture , Special Instructions: hand injury rule out fracture , , , Ordering Kirt TINEO MD , Performed By: #### 5 102 ####[facility] MCV (RBC) [Entitic vol] 97.1 fL Normal 82.0-98.0 [facility] Comment on above: Order Comment: , Spe cial Instructions: hand injury rule out fracture , Special Instructions: hand injury rule out fracture , , , Ordering Kirt TINEO MD , Performed By: #### 5 0103 ####[facility] Monocytes (Bld) [#/Vol] 0.6 10*3/uL Normal 0.1-1.0 [facility] Comment on above: Order Comment: , Spe cial Instructions: hand injury rule out fracture , Special Instructions: hand injury rule out fracture , , , Ordering Kirt TINEO MD , Performed By: #### 5 102 ####[facility] MONOS 8.4 % Normal 5.0-12.0 [facility] Comment on above: Order Comment: , Spe cial Instructions: hand injury rule out fracture , Special Instructions: hand injury rule out fracture , , , Ordering Provider Mark TINEO MD , Performed By: #### 5 0103 ####[facility] Neutrophils/100 WBC (Bld) 77.4 % High 40.0-72.0 [facility] Comment on above: Order Comment: , Spe cial Instructions: hand injury rule out fracture , Special Instructions: hand injury rule out fracture , , , Ordering Provider Mark TINEO MD , Performed By: #### 5 0103 ####[facility] Nucleated RBC/100 WBC (Bld) [Ratio] 0 % Normal 0-0 [facility] Comment on above: Order Comment: , Spe cial Instructions: hand injury rule out fracture , Special Instructions: hand injury rule out fracture , , , Ordering Provider Mark TINEO MD , Performed By: #### 5 0103 ####[facility] PLAT CNT 159 10*3/uL Normal 150-400 [facility] Comment on above: Order Comment: , Spe cial Instructions: hand injury rule out fracture , Special Instructions: hand injury rule out fracture , , , Ordering Provider Mark TINEO MD , Performed By: #### 5 0103 ####[facility] RBC (Bld) [#/Vol] 2.73 10*6/uL Low 3.80-5.00 [facility] Comment on above: Order Comment: , Noe cial Instructions: hand injury rule out fracture , Special Instructions: hand injury rule out fracture , , , Ordering Provider - DIANE TINEO MD , Performed By: #### 5 0103 ####[facility] [place] [address], [facility] WBC (Bld) [#/Vol] 7.66 10*3/uL Normal 4.00-10.60 [facility] Comment on above: Order Comment: , Noe cial Instructions: hand injury rule out fracture , Special Instructions: hand injury rule out fracture , , , Ordering Provider - DIANE TINEO MD , Performed By: #### 5 0103 ####[facility] [place] [address], [facility] HEMOGLOBINon 11-03-2019 Hemoglobin (Bld) [Mass/Vol] 8.0 g/dL Low 12.0-15.0 [facility] Comment on above: Order Comment: No: D o not add to previous draw Performed By: #### 6 1405 #### [facility] [address] [facility] [place] [address], [facility] LIVER BATTERYon 11-03-2019 Albumin [Mass/Vol] 3.1 g/dL Low 3.5-5.7 [facility] Comment on above: Performed By: #### 6 1405 #### [facility] [address] [place] [address], [facility] ALKALINE PHOSPH 100 IU/L Normal 34-104 [facility] Comment on above: Performed By: #### 6 1405 #### [facility] [address] [place] [address], [facility] ALT [Catalytic activity/Vol] 4 U/L Low 7-52 [facility] Comment on above: Performed By: #### 6 1405 #### [facility] [address] [place] [address], [facility] AST [Catalytic activity/Vol] 18 U/L Normal 13-39 [facility] Comment on above: Performed By: #### 6 1405 #### [facility] [address] [place] [address], [place] Bilirubin [Mass/Vol] 0.3 mg/dL Normal 0.3-1.0 [facility] Comment on above: Performed By: #### 6 1405 #### [facility] [address] [place] [address], [facility] Bilirubin.direct [Mass/Vol] 0.0 mg/dL Normal 0.0-0.2 [facility] Comment on above: Performed By: #### 6 1405 #### [facility] [address] [place] [address], [facility] Protein [Mass/Vol] 5.6 g/dL Low 6.0-8.3 [facility] Comment on above: Performed By: #### 6 1405 #### [facility] [address] [place] [address], [facility] MAGNESIUM BLOODon 11-03-2019 Magnesium [Mass/Vol] 1.9 mg/dL Normal 1.9-2.7 [facility] Comment on above: Order Comment: No: D o not add to previous draw Performed By: #### 6 1405 #### [facility] [address] [place] [address], [place] PHOSPHORUS BLOODon 9 Phosphate [Mass/Vol] 2.2 mg/dL Low 2.5-5.0 [facility] Comment on above: Order Comment: No: D o not add to previous draw Performed By: #### 6 1405 #### [facility] [address] [place] [address], [facility] PROTHROMBIN TIMEon 9 INR Coag (PPP) [Relative time] 1.03 {INR} Normal 0.91-1.16 [facility] Comment on above: Result Comment: ACCC P RECOMMENDED INR FOR WARFARIN THERAPY ------- CONDITION INR PROPHYLAXIS OF VENOUS THROMBOSIS 2-3 (HIGH-RISK SURGERY) TREATMENT OF VENOUS THROMBOSIS 2-3 TREATMENT OF PULMONARY EMBOLISM 2-3 PREVENTION OF SYSTEMIC EMBOLISM: 2-3 ACUTE MYOCARDIAL INFARCTION TISSUE HEART VALVES VALVULAR HEART DISEASE ATRIAL FIBRILLATION RECURRENT SYSTEMIC EMBOLISM MECHANICAL HEART VALVE 2.5-3.5 FROM: ORAL ANTICOAGULANTS. MECHANISM OF ACTION, CLINICAL EFFECTIVENESS, AND OPTIMAL THERAPEUTIC RANGE. CHEST 1995;108:231S-246S. Performed By: #### 6 1405 #### [address] PT Coag (PPP) [Time] 13.5 s Normal 12.3-14.8 [facility] Comment on above: Result Comment: ALL RESULTS MUST BE INTERPRETED WITH RESPECT TO BLOOD DRAWING ARTIFACT OR DILUTION ERROR OF ANTICOAGULANT AT THE TIME OF SAMPLING. Performed By: #### 6 1405 #### [address] SHOULDER RIGHTon 11-03-2019 SHOULDER RIGHT [facility] Department of Radiology [address] [place] [id number] Patient Name: PADMA GUEVARA : 1950 Sex: F Age: Race: White Pt. Location: [address] [place] [address] Patient Status: I Ordered Date: 11/03/2019 12:25:00 PM Completed Date: 11/03/2019 02:49 PM Requesting Provider: REX MCKEE Attending Provider: TARIQ ELLIOTT Report Copy To: Signs & Symptoms: Pain ( specify Location) History: See Comments Comments: R/O Dislocation Exam: SHOULDER RIGHT SHOULDER RIGHT 11/03/2019 2:49 PM EST SIGNS AND SYMPTOMS: Pain ( specify Location) TECHNOLOGIST COMMENTS: Pt stated having right shoulder pain after slipped her arm,. no fall. QUESTION FOR THE RADIOLOGIST: R/O Dislocation PROTOCOL: AP,Grashey and Axillary views were obtained. COMPARISON: None FINDINGS: Soft tissues: Unremarkable apart from axillary clips from prior axillary node dissection. Bones: No acute fractures or dislocations. Joints: Preserved IMPRESSION: No acute osseous abnormalities. Approved by:Zhanna Johnson on 11/03/2019 5:37 PM EST. I, Maximus Aparicio, have reviewed the images and report and concur with these findings. Electronically signed by:Maximus Aparicio. Transcribed by: [email or web address], User Resident: ZHANNA JOHNSON Electronically Signed by: MAXIMUS APARICIO @ 11/03/2019 09:43 PM I personally read this/these film(s) with this resident Normal [facility] Comment on above: Order Comment: R/O D islocation UFH HEPARIN ASSAYon 11-03-20 19 UNFRACTIONATED HEPARIN 0.34 IU/mL Normal 0.30-0.70 [facility] Comment on above: Order Comment: ADDED PER PROTOCOL Result Comment: Brandi roxaban and Apixaban will interfere with the anti Xa assay used to monitor UFH and LMWH. Performed By: #### 6 1405 #### [facility] [address] [place] [address], [facility] UNFRACTIONATED HEPARIN 0.57 IU/mL Normal 0.30-0.70 [facility] Comment on above: Result Comment: Trego roxaban and Apixaban will interfere with the anti Xa assay used to monitor UFH and LMWH. Performed By: #### 6 1405 #### [facility] [address] [place] [address], [facility] APTTon 11-02-2019 aPTT Coag (Bld) [Time] 62.3 s High 25.0-35.0 Th e [facility] Comment on above: Order Comment: , Spe cial Instructions: hand injury rule out fracture , Special Instructions: hand injury rule out fracture , , , Ordering Provider - DIANE TINEO MD , Result Comment: ALL RESULTS MUST BE INTERPRETED WITH RESPECT TO BLOOD DRAWING ARTIFACT OR DILUTION ERROR OF ANTICOAGULANT AT THE TIME OF SAMPLING. THE APTT SHOULD NOT BE USED TO MONITOR UNFRACTIONATED HEPARIN THERAPY, THIS LABORATORY NO LONGER HAS AN ESTABLISHED THERAPEUTIC RANGE BASED ON THE APTT. IT IS RECOMMENDED THAT THE UFH - HEPARIN ASSAY (ANTI-XA ACTIVITY) BE USED FOR THIS PURPOSE. CLINICAL SIGNIFICANCE OF THE PTT RESULT IS QUESTIONABLE IN THE PRESENCE OF HEPARIN. Performed By: #### 5 7307, [id number] ####[facility] [facility] [address], [facility] aPTT Coag (Bld) [Time] 67.9 s High 25.0-35.0 Th e [facility] Comment on above: Order Comment: No: D o not add to previous draw Result Comment: ALL RESULTS MUST BE INTERPRETED WITH RESPECT TO BLOOD DRAWING ARTIFACT OR DILUTION ERROR OF ANTICOAGULANT AT THE TIME OF SAMPLING. THE APTT SHOULD NOT BE USED TO MONITOR UNFRACTIONATED HEPARIN THERAPY, THIS LABORATORY NO LONGER HAS AN ESTABLISHED THERAPEUTIC RANGE BASED ON THE APTT. IT IS RECOMMENDED THAT THE UFH - HEPARIN ASSAY (ANTI-XA ACTIVITY) BE USED FOR THIS PURPOSE. CLINICAL SIGNIFICANCE OF THE PTT RESULT IS QUESTIONABLE IN THE PRESENCE OF HEPARIN. Performed By: #### 5 6506 #### [facility] [address] [place] [address], [facility] BASIC METABOLIC PANELon 12-2 Calcium [Mass/Vol] 8.2 mg/dL Low 8.6-10.3 [facility] Comment on above: Performed By: #### 5 6506 #### [facility] [address] [place] [address], [facility] Chloride [Moles/Vol] 108 mmol/L High 98-107 [facility] Comment on above: Performed By: #### 5 6506 #### [facility] [address] [place] [address], [facility] CO2 [Moles/Vol] 23 mmol/L Normal 21-31 [facility] Comment on above: Performed By: #### 5 6506 #### [facility] [address] [place] [address], [facility] Creatinine [Mass/Vol] 2.18 mg/dL High 0.60-1.20 [facility] Comment on above: Performed By: #### 5 6506 #### [facility] [address] [facility] [address], [facility] GFR/1.73 sq M predicted among blacks MDRD (S/P/Bld) [Vol rate/Area] 27 ml/min/1.73sq m Abnormal >60 [facility] Comment on above: Performed By: #### 5 6506 #### [facility] [address] [place] [id number], [facility] GFR/1.73 sq M predicted among non-blacks MDRD (S/P/Bld) [Vol rate/Area] 22 ml/min/1.73sq m Abnormal >60 [facility] Comment on above: Performed By: #### 5 6506 #### [facility] [address] [place] [address], [place] Glucose [Mass/Vol] 102 mg/dL High 70-100 [facility] Comment on above: Performed By: #### 5 6506 #### [facility] [address] [place] [address], [place] Potassium [Moles/Vol] 2.9 mmol/L Low 3.5-5.1 [facility] Comment on above: Performed By: #### 5 6506 #### [facility] [address] [place] [address], [place] Sodium [Moles/Vol] 143 mmol/L Normal 136-145 [facility] Comment on above: Performed By: #### 5 6506 #### [facility] [address] [place] [address], [place] Urea nitrogen [Mass/Vol] 53 mg/dL High 7-25 [facility] Comment on above: Performed By: #### 5 6506 #### [facility] [address] [place] [address], [place] Calcium [Mass/Vol] 8.6 mg/dL Normal 8.6-10.3 [facility] Comment on above: Order Comment: No: D o not add to previous drawRUN AM LABS PER INGRIS SIMPSON Performed By: #### 5 6506 #### [facility] [facility] [address] [place] [address], [place] Chloride [Moles/Vol] 109 mmol/L High 98-107 [facility] Comment on above: Order Comment: No: D o not add to previous drawRUN AM LABS PER INGRIS SIMPSON Performed By: #### 5 [id number] #### [facility] [address] [place] [address], [place] CO2 [Moles/Vol] 24 mmol/L Normal 21-31 [facility] Comment on above: Order Comment: No: D o not add to previous drawRUN AM LABS PER INGRIS RN Performed By: #### 5 [id number] #### [facility] [address] [place] [address], [place] Creatinine [Mass/Vol] 2.18 mg/dL High 0.60-1.20 [facility] Comment on above: Order Comment: No: D o not add to previous drawRUN AM LABS PER INGRIS RN Performed By: #### 5 [id number] #### [facility] [address] [place] [address], [place] GFR/1.73 sq M predicted among blacks MDRD (S/P/Bld) [Vol rate/Area] 27 ml/min/1.73sq m Abnormal >60 [facility] Comment on above: Order Comment: No: D o not add to previous drawRUN AM LABS PER INGRIS RN Performed By: #### 5 [id number] #### [facility] [address] [place] [address], [place] GFR/1.73 sq M predicted among non-blacks MDRD (S/P/Bld) [Vol rate/Area] 22 ml/min/1.73sq m Abnormal >60 [facility] Comment on above: Order Comment: No: D o not add to previous drawRUN AM LABS PER INGRIS RN Performed By: #### 5 [id number] #### [facility] [address] [place] [address], [place] Glucose [Mass/Vol] 122 mg/dL High 70-100 [facility] Comment on above: Order Comment: No: D o not add to previous drawRUN AM LABS PER INGRIS RN Performed By: #### 5 [id number] #### [facility] [address] [place] [address], [place] Potassium [Moles/Vol] 3.2 mmol/L Low 3.5-5.1 [facility] Comment on above: Order Comment: No: D o not add to previous drawRUN AM LABS PER INGRIS RN Performed By: #### 5 [id number] #### [facility] [address] [place] [address], [facility] Sodium [Moles/Vol] 147 mmol/L High 136-145 [facility] Comment on above: Order Comment: No: D o not add to previous drawRUN AM LABS PER INGRIS RN Performed By: #### 5 [id number] #### [facility] [address] [place] [address], [facility] Urea nitrogen [Mass/Vol] 53 mg/dL High 7-25 [facility] Comment on above: Order Comment: No: D o not add to previous drawRUN AM LABS PER INGRIS RN Performed By: #### 5 [id number] #### [facility] [address] [facility] [address] BLOOD STOOL GUAIACon 019 BLD STOOL GUAIAC Positive Abnormal NEGATIVE [facility] Comment on above: Order Comment: No: D o not add to previous draw Performed By: #### 5 [id number] #### [facility] [address] [facility] BNP (B-TYPE NATRIURETIC PEPT NIKOLAS)on 11-02-2019 Natriuretic peptide B (Bld) [Mass/Vol] 2887 pg/mL High 0-100 [facility] Comment on above: Order Comment: if no t done in ED No: Do not add to previous draw Result Comment: Give n the appropriate clinical setting a BNP result of >100 pg/mL indicates congestive heart failure. Performed By: #### 8 [id number] #### [facility] [address] [place] [address], [facility] CBC W/DIFFon 11-02-2019 ABS BASOPHILS 0.0 10*3/uL Normal 0.0-0.2 [facility] Comment on above: Order Comment: , Noe ciamicha Instructions: hand injury rule out fracture , Special Instructions: hand injury rule out fracture , , , Ordering Provider - DIANE TINEO MD , Performed By: #### 5 0103 ####[facility] ABS IMM GRANS 0.0 10*3/uL Normal 0.0-0.2 [facility] Comment on above: Order Comment: , Spe cial Instructions: hand injury rule out fracture , Special Instructions: hand injury rule out fracture , , , Ordering Provider - DIANE TINEO MD , Performed By: #### 5 0103 ####[facility] ABS NEUTROPHILS 9.3 10*3/uL High 1.6-7.6 [facility] Comment on above: Order Comment: , Spe cial Instructions: hand injury rule out fracture , Special Instructions: hand injury rule out fracture , , , Ordering Provider - DIANE TINEO MD , Performed By: #### 5 0103 ####[facility] Basophils/100 WBC (Bld) 0.1 % Normal 0.0-1.0 [facility] Comment on above: Order Comment: , Spe cial Instructions: hand injury rule out fracture , Special Instructions: hand injury rule out fracture , , , Ordering Provider - DIANE TINEO MD , Performed By: #### 5 0103 ####[facility] Eosinophils (Bld) [#/Vol] 0.0 10*3/uL Normal 0.0-0.5 [facility] Comment on above: Order Comment: , Spe cial Instructions: hand injury rule out fracture , Special Instructions: hand injury rule out fracture , , , Ordering Provider - DIANE TINEO MD , Performed By: #### 5 0103 ####[facility] Eosinophils/100 WBC (Bld) 0.0 % Normal 0.0-6.0 [facility] Comment on above: Order Comment: , Spe cial Instructions: hand injury rule out fracture , Special Instructions: hand injury rule out fracture , , , Ordering Provider Mark TINEO MD , Performed By: #### 5 0103 ####[facility] Erythrocyte distribution width (RBC) [Ratio] 14.9 % Normal 11.5-15.0 [facility] Comment on above: Order Comment: , Spe cial Instructions: hand injury rule out fracture , Special Instructions: hand injury rule out fracture , , , Ordering Provider Mark TINEO MD , Performed By: #### 5 0103 ####[facility] Hematocrit (Bld) [Volume fraction] 30.3 % Low 36.0-45.0 [facility] Comment on above: Order Comment: , Spe cial Instructions: hand injury rule out fracture , Special Instructions: hand injury rule out fracture , , , Ordering Kirt TINEO MD , Performed By: #### 5 0103 ####[facility] Hemoglobin (Bld) [Mass/Vol] 9.2 g/dL Low 12.0-15.0 [facility] Comment on above: Order Comment: , Spe cial Instructions: hand injury rule out fracture , Special Instructions: hand injury rule out fracture , , , Ordering Provider Mark TINEO MD , Performed By: #### 5 0103 ####[facility] IMMATURE GRANS 0.4 % Normal 0.0-1.0 [facility] Comment on above: Order Comment: , Noe ciamicha Instructions: hand injury rule out fracture , Special Instructions: hand injury rule out fracture , , , Ordering Kirt TINEO MD , Performed By: #### 5 0103 ####[facility] Lymphocytes (Bld) [#/Vol] 0.9 10*3/uL Low 1.2-4.0 [facility] Comment on above: Order Comment: , Noe ciamicha Instructions: hand injury rule out fracture , Special Instructions: hand injury rule out fracture , , , Ordering Provider Mark TINEO MD , Performed By: #### 5 0103 ####[facility] [place] [address] Lymphocytes/100 WBC (Bld) 7.8 % Low 20.0-45.0 [facility] Comment on above: Order Comment: , Noe ciamicha Instructions: hand injury rule out fracture , Special Instructions: hand injury rule out fracture , , , Ordering Provider Mark TINEO MD , Performed By: #### 5 0103 ####[facility] [place] [address] MCH (RBC) [Entitic mass] 29.2 pg Normal 27.0-33.0 [facility] Comment on above: Order Comment: , Noe ciamicha Instructions: hand injury rule out fracture , Special Instructions: hand injury rule out fracture , , , Ordering Provider Mark TINEO MD , Performed By: #### 5 0103 ####[place] [id number] [address] MCHC (RBC) [Mass/Vol] 30.4 g/dL Low 32.0-35.0 [facility] Comment on above: Order Comment: , Spe cial Instructions: hand injury rule out fracture , Special Instructions: hand injury rule out fracture , , , Ordering Kirt TINEO MD , Performed By: #### 5 0103 ####[address] MCV (RBC) [Entitic vol] 96.2 fL Normal 82.0-98.0 [facility] Comment on above: Order Comment: , Spe cial Instructions: hand injury rule out fracture , Special Instructions: hand injury rule out fracture , , , Ordering Provider Mark TINEO MD , Performed By: #### 5 0103 ####[address] Monocytes (Bld) [#/Vol] 0.9 10*3/uL Normal 0.1-1.0 [facility] Comment on above: Order Comment: , Spe cial Instructions: hand injury rule out fracture , Special Instructions: hand injury rule out fracture , , , Ordering Provider Mark TINEO MD , Performed By: #### 5 3 ####[address] MONOS 8.4 % Normal 5.0-12.0 [facility] Comment on above: Order Comment: , Spe cial Instructions: hand injury rule out fracture , Special Instructions: hand injury rule out fracture , , , Ordering Provider Mark TINEO MD , Performed By: #### 5 0103 ####[facility] Neutrophils/100 WBC (Bld) 83.3 % High 40.0-72.0 [facility] Comment on above: Order Comment: , Spe cial Instructions: hand injury rule out fracture , Special Instructions: hand injury rule out fracture , , , Ordering Provider Mark TINEO MD , Performed By: #### 5 0103 ####[facility] Nucleated RBC/100 WBC (Bld) [Ratio] 0 % Normal 0-0 [facility] Comment on above: Order Comment: , Spe cial Instructions: hand injury rule out fracture , Special Instructions: hand injury rule out fracture , , , Ordering Provider Mark TINEO MD , Performed By: #### 5 0103 ####[facility] PLAT CNT 218 10*3/uL Normal 150-400 [facility] Comment on above: Order Comment: , Spe cial Instructions: hand injury rule out fracture , Special Instructions: hand injury rule out fracture , , , Ordering Provider Mark TINEO MD , Performed By: #### 5 0103 ####[facility] [place] [address], [facility] RBC (Bld) [#/Vol] 3.15 10*6/uL Low 3.80-5.00 [facility] Comment on above: Order Comment: , Spe cial Instructions: hand injury rule out fracture , Special Instructions: hand injury rule out fracture , , , Ordering Provider - DIANE TINEO MD , Performed By: #### 5 0103 ####[facility] WBC (Bld) [#/Vol] 11.13 10*3/uL High 4.00-10.60 [facility] Comment on above: Order Comment: , Noe cial Instructions: hand injury rule out fracture , Special Instructions: hand injury rule out fracture , , , Ordering Provider - DIANE TINEO MD , Performed By: #### 5 0103 ####[facility] ABS BASOPHILS 0.0 10*3/uL Normal 0.0-0.2 [facility] Comment on above: Order Comment: Yes: Add to Previous draw if able Performed By: #### 5 0103 #### [facility] [address] [place] [address], [facility] ABS IMM GRANS 0.1 10*3/uL Normal 0.0-0.2 [facility] Comment on above: Order Comment: Yes: Add to Previous draw if able Performed By: #### 5 0103 #### [facility] [address] [place] [address], [facility] ABS NEUTROPHILS 12.2 10*3/uL High 1.6-7.6 [facility] Comment on above: Order Comment: Yes: Add to Previous draw if able Performed By: #### 5 0103 #### [facility] [address] [place] [address], [facility] Basophils/100 WBC (Bld) 0.1 % Normal 0.0-1.0 T [facility] Comment on above: Order Comment: Yes: Add to Previous draw if able Performed By: #### 5 0103 #### [facility] [address] [place] [address], [facility] Eosinophils (Bld) [#/Vol] 0.0 10*3/uL Normal 0.0-0.5 [facility] Comment on above: Order Comment: Yes: Add to Previous draw if able Performed By: #### 5 0103 #### [facility] [address] [place] [address], [facility] Eosinophils/100 WBC (Bld) 0.0 % Normal 0.0-6.0 [facility] Comment on above: Order Comment: Yes: Add to Previous draw if able Performed By: #### 5 3 #### [facility] [address] Erythrocyte distribution width (RBC) [Ratio] 14.8 % Normal 11.5-15.0 [facility] Comment on above: Order Comment: Yes: Add to Previous draw if able Performed By: #### 5 0103 #### [facility] [address] Hematocrit (Bld) [Volume fraction] 33.3 % Low 36.0-45.0 [facility] Comment on above: Order Comment: Yes: Add to Previous draw if able Performed By: #### 5 0103 #### [facility] [address] [place] [address], [facility] Hemoglobin (Bld) [Mass/Vol] 10.2 g/dL Low 12.0-15.0 [facility] Comment on above: Order Comment: Yes: Add to Previous draw if able Performed By: #### 5 0103 #### [facility] [address] [place] [address], [facility] IMMATURE GRANS 0.4 % Normal 0.0-1.0 [facility] Comment on above: Order Comment: Yes: Add to Previous draw if able Performed By: #### 5 0103 #### [facility] [address] Lymphocytes (Bld) [#/Vol] 0.5 10*3/uL Low 1.2-4.0 [facility] Comment on above: Order Comment: Yes: Add to Previous draw if able Performed By: #### 5 102 #### [facility] [address] [facility] [place] [address], [facility] Lymphocytes/100 WBC (Bld) 3.7 % Low 20.0-45.0 [facility] Comment on above: Order Comment: Yes: Add to Previous draw if able Performed By: #### 102 #### [facility] [address] [place] [address], [facility] MCH (RBC) [Entitic mass] 29.3 pg Normal 27.0-33.0 [facility] Comment on above: Order Comment: Yes: Add to Previous draw if able Performed By: #### 102 #### [facility] [address] [facility] [address], [facility] MCHC (RBC) [Mass/Vol] 30.6 g/dL Low 32.0-35.0 [facility] Comment on above: Order Comment: Yes: Add to Previous draw if able Performed By: #### 102 #### [facility] [address] [place] [address], [facility] MCV (RBC) [Entitic vol] 95.7 fL Normal 82.0-98.0 [facility] Comment on above: Order Comment: Yes: Add to Previous draw if able Performed By: #### 3 #### [facility] [address] [place] [address], [facility] Monocytes (Bld) [#/Vol] 0.8 10*3/uL Normal 0.1-1.0 [facility] Comment on above: Order Comment: Yes: Add to Previous draw if able Performed By: #### 3 #### [facility] [address] [place] [address], [facility] MONOS 6.1 % Normal 5.0-12.0 [facility] Comment on above: Order Comment: Yes: Add to Previous draw if able Performed By: #### 5 0103 #### [facility] [address] [place] [id number], [facility] Neutrophils/100 WBC (Bld) 89.7 % High 40.0-72.0 [facility] Comment on above: Order Comment: Yes: Add to Previous draw if able Performed By: #### 5 0103 #### [facility] [address] [place] [address], [facility] Nucleated RBC/100 WBC (Bld) [Ratio] 0 % Normal 0-0 [facility] Comment on above: Order Comment: Yes: Add to Previous draw if able Performed By: #### 5 0103 #### [facility] [address] [place] [address], [facility] PLAT CNT 253 10*3/uL Normal 150-400 [facility] Comment on above: Order Comment: Yes: Add to Previous draw if able Performed By: #### 5 0103 #### [facility] [address] [place] [address], [facility] RBC (Bld) [#/Vol] 3.48 10*6/uL Low 3.80-5.00 [facility] Comment on above: Order Comment: Yes: Add to Previous draw if able Performed By: #### 5 0103 #### [facility] [address] [place] [id number], [facility] WBC (Bld) [#/Vol] 13.59 10*3/uL High 4.00-10.60 [facility] Comment on above: Order Comment: Yes: Add to Previous draw if able Performed By: #### 5 0103 #### [facility] [address] [place] [id number], [facility] HEMOGLOBINon 11-02-2019 Hemoglobin (Bld) [Mass/Vol] 9.0 g/dL Low 12.0-15.0 [facility] Comment on above: Order Comment: , Noe spencer Instructions: hand injury rule out fracture , Special Instructions: hand injury rule out fracture , , , Ordering Provider - DIANE TINEO MD , Performed By: #### 9 2089 ####[facility] History and Physicalon 11-02 History and Physical MR#: [id number] [facility] Pt. Name: Padma Guevara Admitted: 11/01/2019 Date of : 1950 Attending Physician: Amara Espino M.D. Room #: [id number] Discharge Date: HISTORY AND PHYSICAL PRIMARY CARE PHYSICIAN: Dr. Eldon Toussaint. CHIEF COMPLAINT: Chest pain and left hip pain. HISTORY OF PRESENT ILLNESS: The patient is a 69-year-old female with past medical history of hypertension, coronary artery disease, CHF, CKD 4, and chronic pain, presented to [facility] as a direct transfer from [facility]. The patient presented to [facility] ER today with her and was complaining of severe left hip pain and left buttock pain and that was her main concern and she was asking for pain medications multiple times. Upon examination and more questioning, the patient was also complaining of chest pain and increased shortness of breath, so workup was done and her troponin came back elevated at 0.7. Her BNP was also elevated. The patient does have a history of coronary artery disease, and she already had WV before. She is on Eliquis for arrhythmia, but was not taking her medication for the last day because of the pain as the patient states. The patient also was complaining of nausea, but no vomiting. She had x-ray done of her hips and it showed mild arthritis that was stable. She has history of chronic pain. She is still a smoker. Otherwise, she is a poor historian and in the ER at [place], most of the history was coming from her and states that because of the pain, she was not able to sleep last night at home. The patient herself denies fevers. No headaches. No lightheadedness. No dysuria. MEDICATIONS: See the list. Allergies: venom from honey bee, latex, morphine, Percocet, Neosporin, and coconut. PAST SURGERIES: Back fusion, neck fusion, bilateral mastectomy, cataract surgery, pacemaker placement, hysterectomy, and cholecystectomy. PAST MEDICAL HISTORY: Hypertension, coronary artery disease status post WV, heart arrhythmia status post ICD, history of breast cancer status post bilateral mastectomy, CKD 4, depression, fibromyalgia, Parkinson disease, GERD, history of osteomyelitis of left foot, obstructive sleep apnea on BiPAP, gout, and protein-calorie malnutrition. SOCIAL HISTORY: The patient is current smoker. She has 1 pack per day smoking history for 27 years. Now, she states she is down to 10 cigarettes per day. Occasional alcohol use. No recreational drug use. She lives with her . FAMILY HISTORY: Positive for heart disease in her father, who has . The patient's mother had heart problems, diabetes, hypertension, and stroke and is also . REVIEW OF SYSTEMS: Review of systems was done and was otherwise negative except pertinent positive findings mentioned in HPI. PHYSICAL EXAMINATION: VITAL SIGNS: Blood pressure 166/84, heart rate 94, respiration 20, oxygen saturation 94% on room air, weight 54 kg, BMI 23, and temperature 98. GENERAL: The patient is alert, in mild distress secondary to pain in her hip she states and would like to get pain medications. HEENT: Eyes; no conjunctival erythema. Ears; normal hearing bilaterally. Mouth; moist oral mucosa. NECK: Supple. RESPIRATORY: Crackles at the bases. Diminished breath sounds bilaterally. Few rhonchi. No wheezing. CARDIOVASCULAR: Regular rate and rhythm. S1 and S2. A 2/6 systolic murmur. No rubs or gallops. ABDOMEN: Soft, nondistended, and nontender. No rigidity. No rebound. EXTREMITIES: Trace pedal edema. SKIN: Warm and dry to touch, pale. Multiple bruising on the patient's forearm, neck, shoulder, especially on the right hip area. NEUROLOGIC: Cranial nerves seems grossly intact. Moves all of the extremities spontaneously. PSYCHIATRIC: Flat affect and anxious. LABORATORY DATA: Urine tox was positive for opiates. The patient also had a stool study done because of history of diarrhea and her C diff was negative. FOBT was negative for blood. EKG shows paced rhythm. Chest x-ray showed mild bilateral pulmonary infiltrates versus pulmonary edema, right more than left. Urinalysis was negative. X-ray of bilateral hips show no acute changes. There was stable mild chronic change. CT of the head was negative for any acute changes. BNP was more than 35,000, normal is less than 900. White blood cells 7.9, hemoglobin 11.4, hematocrit 35.9, and platelets 247. CK of 333 and CK-MB 13.3, troponin 0.7, and myoglobin 825. Glucose 158, sodium 146, potassium 3.5, chloride 110, CO2 of 23, creatinine 2.16, BUN 51, and calcium 9.4. ALT 29, AST 36, alkaline phosphatase 168, total protein 6.9, albumin 2.9, and total bilirubin 0.4. ASSESSMENT: Chest pain, [id number] elevation myocardial infarction, congestive heart failure exacerbation, anemia, bilateral hip pain, hypertension, coronary artery disease, heart arrhythmia, history of breast cancer, chronic kidney disease stage 4, depression, fibromyalgia, Parkinson disease, gastroesophageal reflux disease, history of osteomyelitis of left foot, obstructive sleep apnea, gout, protein-calorie malnutrition, and tobacco use. PLAN: The patient is admitted to step-down to telemetry bed. 1. Non-STEMI. We will trend troponins, EKG in the morning, Cardiology consult, and heparin drip. 2. CHF exacerbation. The patient will be on Bumex 0.5 mg 1 time. Strict I's and O's, daily weight, and echo. The patient's last echo was done in November of 2018, and it showed normal ejection fraction at that time. We will also recheck BNP here in the hospital at [facility]. 3. Diabetes. We will check blood sugar before meals and at bedtime and cover with insulin sliding scale. 4. Protein-calorie malnutrition. We will order Boost 3 times a day. 5. Obstructive sleep apnea. We will order BiPAP. 6. Tobacco use, nicotine patch. 7. CKD stage 4. The patient's baseline creatinine is 1.9 and it is 2.1 now. We will monitor. 8. Bilateral hip pain. Pain control with pain medications. 9. PT and OT/Bookkeeping Assistant for discharge planning. 10. DVT and GI prophylaxis. 11. We will order labs and resume the patient's home medications. Electronically Signed by: Amara Espino M.D. 11/02/2019 01:28 A Amara Espino M.D. Date Dict: 11/02/201912:09 Ysei/Amara Espino M.D. Date Trans: 11/02/2019 01:07 A/mona [id number] Normal [facility] LIPID PROFILEon 11-02-2019 Cholesterol [Mass/Vol] 147 mg/dL Normal 120-200 Th e [facility] Comment on above: Order Comment: No: D o not add to previous drawRUN AM LABS PER INGRIS RN Result Comment: CHOL ESTEROL REFERENCE RANGE: 20 YEARS AND OLDER CARDIOVASCULAR RISK Less than 200 mg/dl Low Risk 200 to 239 mg/dl Borderline Risk 240 mg/dl and greater High Risk Performed By: #### 5 [id number] #### [facility] [address] [place] [address], [facility] Cholesterol in HDL [Mass/Vol] 37 mg/dL Normal 23-92 [facility] Comment on above: Order Comment: No: D o not add to previous drawRUN AM LABS PER INGRIS RN Result Comment: Slig ht variation in normal range could be due to gender and/or age. HDL CHOLESTEROL REFERENCE RANGE: 20 years and older Cardiovascular Risk > or =60 mg/dL Desirable 40 TO 59 mg/dL Low Risk <40 mg/dL High Risk Performed By: #### 5 [id number] #### [facility] [facility] [address] [place] [address], [place] Cholesterol in LDL [Mass/Vol] 82 mg/dL Normal 0-130 [facility] Comment on above: Order Comment: No: D o not add to previous drawRUN AM LABS PER INGRIS RN Result Comment: LDL IS A CALCULATION LDL IS ONLY VALID IF THE TRIG IS LESS THAN 400. Performed By: #### 5 [id number] #### [facility] [address] [place] [address], [facility] Cholesterol.total/Janine sterol in HDL [Mass ratio] 4.0 {ratio} Normal 0.0-4.5 [facility] Comment on above: Order Comment: No: D o not add to previous drawRUN AM LABS PER INGRIS RN Performed By: #### 5 [id number] #### [facility] [address] [place] [address], [facility] NON-HDL CHOLESTEROL 110 mg/dL Normal [facility] Comment on above: Order Comment: No: D o not add to previous drawRUN AM LABS PER INGRIS RN Performed By: #### 5 [id number] #### [facility] [address] [place] [address], [facility] Triglyceride [Mass/Vol] 138 mg/dL Normal 40-149 [facility] Comment on above: Order Comment: No: D o not add to previous drawRUN AM LABS PER INGRIS RN Result Comment: TRIG LYCERIDE REFERENCE RANGE: 20 YEARS AND OLDER CARDIOVASCULAR RISK LESS THAN 150 mg/dl LOW RISK 150 TO 199 mg/dl BORDERLINE RISK 200 mg/dl AND GREATER HIGH RISK Performed By: #### 5 [id number] #### [facility] [address] [place] [address], [facility] VLDL CHOL 28 mg/dL Normal 0-40 [facility] Comment on above: Order Comment: No: D o not add to previous drawRUN AM LABS PER INGRIS RN Performed By: #### 5 [id number] #### [facility] [address] [place] [address], [facility] MAGNESIUM BLOODon 11-02-2019 Magnesium [Mass/Vol] 1.9 mg/dL Normal 1.9-2.7 [facility] Comment on above: Performed By: #### 5 [id number] #### [facility] [address] [place] [address], [facility] Magnesium [Mass/Vol] 2.0 mg/dL Normal 1.9-2.7 [facility] Comment on above: Order Comment: if no t done in ED No: Do not add to previous draw Performed By: #### 1 0070, [id number] #### [facility] [address] [place] [address], [facility] PHOSPHORUS BLOODon 9 Phosphate [Mass/Vol] 4.1 mg/dL Normal 2.5-5.0 [facility] Comment on above: Performed By: #### 5 [id number] #### [facility] [address] [place] [address], [place] POC GLUCOSE LABon 11-02-2019 Glucose [Mass/Vol] 89 mg/dL Normal 70-100 [facility] Comment on above: Performed By: #### 8 5499 ####[facility] [place] [address], [place] Glucose [Mass/Vol] 119 mg/dL High 70-100 [facility] Comment on above: Performed By: #### 8 5499 ####[facility] [place] [address], [place] Glucose [Mass/Vol] 101 mg/dL High 70-100 [facility] Comment on above: Performed By: #### 5 6506 #### [facility] [address] [place] [address], [place] Glucose [Mass/Vol] 134 mg/dL High 70-100 [facility] Comment on above: Performed By: #### 8 5499 #### [facility] [address] [place] [address], [facility] PORTABLE CHEST 1 VIEWon 10-07 PORTABLE CHEST 1 VIEW [facility] Department of Radiology [address] [place] [id number] Patient Name: PADMA GUEVARA : 1950 Sex: F Age: Race: White Pt. Location: [id number] Patient Status: I Ordered Date: 11/02/2019 11:50:00 AM Completed Date: 11/02/2019 12:20 PM Requesting Provider: REX MCKEE Attending Provider: TARIQ ELLIOTT Report Copy To: Signs & Symptoms: Chest Pain History: See Comments Comments: R/O Cardiomegaly Exam: PORTABLE CHEST 1 VIEW PORTABLE CHEST 1 VIEW 11/02/2019 12:20 PM EST SIGNS AND SYMPTOMS: Chest Pain TECHNOLOGIST COMMENTS: chest pain QUESTION FOR THE RADIOLOGIST: R/O Cardiomegaly PROTOCOL: AP(PA) view was obtained. COMPARISON: March 20, 2019 FINDINGS: Trachea is midline. Redemonstration of dual-lead pacemaker the leads are in expected location of the right atrium right ventricle. Bilateral costophrenic sulci are clear. No pneumothorax. Surgical javid overlying the right axilla. There appears to be prominence of the perihilar vasculature particularly on the left, however, this could be secondary to AP supine technique. IMPRESSION: Possible vascular congestion versus technique. Approved by:Zhanna Johnson on 11/02/2019 12:53 PM EST. I, Terry Adhikari, have reviewed the images and report and concur with these findings. Electronically signed by:Terry Adhikari. Transcribed by: [email or web address], User Resident: ZHANNA JOHNSON Electronically Signed by: TERRY ADHIKARI @ 11/02/2019 03:08 PM I personally read this/these film(s) with this resident Normal [facility] Comment on above: Order Comment: , Spe cial Instructions: hand injury rule out fracture , Special Instructions: hand injury rule out fracture , , , Ordering Provider - DIANE TINEO MD , TROPONIN-Ion 11-02-2019 Troponin I.cardiac [Mass/Vol] 0.23 ng/mL Critically high 0.00-0.04 [facility] Comment on above: Order Comment: , Spe cial Instructions: hand injury rule out fracture , Special Instructions: hand injury rule out fracture , , , Ordering Provider - DIANE TINEO MD , Result Comment: REFE RENCE RANGES: 0.00 - 0.04 ng/ml NORMAL 0.05 - 0.50 ng/ml INDETERMINATE > 0.50 ng/ml CONSISTENT WITH AN M.I. Performed By: #### 3 5200 ####[facility] Troponin I.cardiac [Mass/Vol] 0.27 ng/mL Critically high 0.00-0.04 [facility] Comment on above: Order Comment: No: D o not add to previous draw Result Comment: REFE RENCE RANGES: 0.00 - 0.04 ng/ml NORMAL 0.05 - 0.50 ng/ml INDETERMINATE > 0.50 ng/ml CONSISTENT WITH AN M.I. Performed By: #### 5 6506 #### [facility] [address] [place] [address], [facility] Troponin I.cardiac [Mass/Vol] 0.35 ng/mL Critically high 0.00-0.04 [facility] Comment on above: Order Comment: No: D o not add to previous draw Result Comment: M-TR OPONIN INITIAL CRITICAL HIGH; RESPUN AND RETESTED M-CRITICAL RESULT(S) REVIEWED, CALLED TO AND READ BACK BY JANIE ALBA RN AT 0141. REFERENCE RANGES: 0.00 - 0.04 ng/ml NORMAL 0.05 - 0.50 ng/ml INDETERMINATE > 0.50 ng/ml CONSISTENT WITH AN M.I. Performed By: #### 1 0070, 83886 #### [facility] [address] [facility] UFH HEPARIN ASSAYon 11-02-20 19 UNFRACTIONATED HEPARIN 0.63 IU/mL Normal 0.30-0.70 [facility] Comment on above: Order Comment: , Spe cial Instructions: hand injury rule out fracture , Special Instructions: hand injury rule out fracture , , , Ordering Provider Mark TINEO MD , Result Comment: Brandi roxaban and Apixaban will interfere with the anti Xa assay used to monitor UFH and LMWH. Performed By: #### 5 7307, [id number] ####[facility] UNFRACTIONATED HEPARIN 0.96 IU/mL Critically high 0.30-0.7 0 [facility] Comment on above: Order Comment: ADDED PER PROTOCOL Result Comment: Brandi roxaban and Apixaban will interfere with the anti Xa assay used to monitor UFH and LMWH. RESULTS CHECKED AND CALLED. ACCURATELY READ BACK BY KANU BUSTAMANTE RN AT 0837 Performed By: #### 5 6506 #### [facility] [address] URINALYSIS REFLEXon 11-02-20 19 Appearance (U) CLEAR Normal CLEAR [facility] Comment on above: Order Comment: , Spe cial Instructions: hand injury rule out fracture , Special Instructions: hand injury rule out fracture , , , Ordering Provider Mark TINEO MD , Performed By: #### 3 0965 ####[facility] Bilirubin [Mass/Vol] Negative Normal NEGATIVE [facility] Comment on above: Order Comment: , Spe cial Instructions: hand injury rule out fracture , Special Instructions: hand injury rule out fracture , , , Ordering Provider Mark TINEO MD , Performed By: #### 3 0965 ####[facility] [place] [address], [facility] BLOOD MODERATE Abnormal NEGATIVE [facility] Comment on above: Order Comment: , Spe cial Instructions: hand injury rule out fracture , Special Instructions: hand injury rule out fracture , , , Ordering Kirt TINEO MD , Performed By: #### 3 0965 ####[facility] [place] [address], [facility] Color (U) YELLOW Normal YELLOW [facility] Comment on above: Order Comment: , Spe cial Instructions: hand injury rule out fracture , Special Instructions: hand injury rule out fracture , , , Ordering Kirt TINEO MD , Performed By: #### 3 0965 ####[facility] [place] [address], [facility] EPIS OCC Normal FEW,OCC,NONE SEEN [facility] Comment on above: Order Comment: , Spe cial Instructions: hand injury rule out fracture , Special Instructions: hand injury rule out fracture , , , Ordering Kirt TINEO MD , Performed By: #### 3 0965 ####[facility] [place] [address], [facility] Glucose [Mass/Vol] Negative Normal NEGATIVE [facility] Comment on above: Order Comment: , Spe cial Instructions: hand injury rule out fracture , Special Instructions: hand injury rule out fracture , , , Ordering Kirt TINEO MD , Performed By: #### 3 0965 ####[facility] [place] [address], [facility] KETONE Negative Normal NEGATIVE [facility] Comment on above: Order Comment: , Spe cial Instructions: hand injury rule out fracture , Special Instructions: hand injury rule out fracture , , , Ordering Provider Mark TINEO MD , Performed By: #### 3 0965 ####[facility] LEUK RODDY Negative Normal NEGATIVE [facility] Comment on above: Order Comment: , Spe cial Instructions: hand injury rule out fracture , Special Instructions: hand injury rule out fracture , , , Ordering Kirt TINEO MD , Performed By: #### 3 0965 ####[facility] MUCUS THREADS OCC Abnormal NONE SEEN [facility] Comment on above: Order Comment: , Spe cia Instructions: hand injury rule out fracture , Special Instructions: hand injury rule out fracture , , , Ordering Kirt TINEO MD , Performed By: #### 3 0965 ####[facility] Nitrite Ql (U) Negative Normal NEGATIVE [facility] Comment on above: Order Comment: , Spe cia Instructions: hand injury rule out fracture , Special Instructions: hand injury rule out fracture , , , Ordering Kirt TINEO MD , Performed By: #### 3 0965 ####[facility] [place] [address] pH (Bld) 5.0 Normal 5.0-8.0 [facility] Comment on above: Order Comment: , Spe cial Instructions: hand injury rule out fracture , Special Instructions: hand injury rule out fracture , , , Ordering Kirt TINEO MD , Performed By: #### 3 0965 ####[place] [id number] Protein (U) [Mass/Vol] 100 mg/dL Abnormal NEGATIVE [facility] e [facility] Comment on above: Order Comment: , Spe cial Instructions: hand injury rule out fracture , Special Instructions: hand injury rule out fracture , , , Ordering Kirt TINEO MD , Performed By: #### 3 0965 ####[place] [address] RBC (U) [#/Vol] 11-20 Abnormal NONE SEEN [facility] Comment on above: Order Comment: , Spe cial Instructions: hand injury rule out fracture , Special Instructions: hand injury rule out fracture , , , Ordering Kirt TINEO MD , Performed By: #### 3 0965 ####[address] SPEC GRAV 1.012 Low 1.015-1.020 [facility] Comment on above: Order Comment: , Spe cial Instructions: hand injury rule out fracture , Special Instructions: hand injury rule out fracture , , , Ordering Kirt TINEO MD , Performed By: #### 3 0965 ####[facility] WBC UA 0-2 Abnormal NONE SEEN [facility] Comment on above: Order Comment: , Spe cial Instructions: hand injury rule out fracture , Special Instructions: hand injury rule out fracture , , , Ordering Kirt TINEO MD , Performed By: #### 3 0965 ####[facility] [facility] [place] [id number] [place] [address] C REACTIVE PROTEINon 019 CRP [Mass/Vol] 32.8 mg/L High 0.0-7.0 [facility] Comment on above: Performed By: #### 6 1405 #### [facility] [address] [facility] [place] [place] [id number] [place] [address] HAND LEFT 3 VWSon 10-21-2019 HAND LEFT 3 VWS [facility] Department of Radiology [address] [place] [address] Patient Name: PADMA GUEVARA : 1950 Sex: F Age: Race: White Pt. Location: [facility] Patient Status: O Ordered Date: 10/21/2019 1:05:00 PM Completed Date: 10/21/2019 01:18 PM Requesting Provider: DIANE TINEO Attending Provider: DIANE TINEO Report Copy To: ELDON TOUSSAINT Signs & Symptoms: T14.90XA Injury, unspecified, initial encounter I10 History: [place]acey Comments: , Special Instructions: hand injury rule out fracture , Special Instructions: hand injury rule out fracture , , , Ordering Provider - DIANE TINEO MD , Exam: HAND LEFT 3 VWS HAND LEFT 3 VWS 10/21/2019 1:18 PM EST SIGNS AND SYMPTOMS: T14.90XA Injury, unspecified, initial encounter I10 TECHNOLOGIST COMMENTS: left hand pain and swelling metal can fell out of cupboards onto hand QUESTION FOR THE RADIOLOGIST: , Special Instructions: hand injury rule out fracture , Special Instructions: hand injury rule out fracture , , , Ordering Provider - DIANE TINEO MD , PROTOCOL: AP,Lateral and Oblique views were obtained. COMPARISON: None FINDINGS: Soft tissues: Calcification in the region of the triangular fibrocartilage Bones: No fracture Joints: Degenerative changes in the distal interphalangeal joints of all digits. Degenerative change with flexion deformity proximal interphalangeal joint of the index finger. Arthritic changes in the metacarpal phalangeal joints. Arthritic change in the first carpal metacarpal joint. Widening of the scapholunate space could indicate scapholunate ligament injury. IMPRESSION: 1. Degenerative changes hand and wrist as detailed above. Given the presence of triangular fibrocartilage calcification could indicate arthritis secondary to CPPD 2. TFC calcification could be seen with prior TFC injury 3. Widening of the scapholunate space could represent scapholunate ligament injury 4. No fracture Electronically signed by:Terry Adhikari. Transcribed by: [email or web address], User Resident: Electronically Signed by: TERRY ADHIKARI @ 10/21/2019 03:48 PM Normal [facility] Comment on above: Order Comment: , Spe cial Instructions: hand injury rule out fracture , Special Instructions: hand injury rule out fracture , , , Ordering Provider - DIANE TINEO MD , SEDIMENTATION RATEon 019 SED RATE 90 mm/hr High 0-20 [facility] Comment on above: Performed By: #### 5 [id number] #### [address] [place] [address], [facility] LUMBAR SPINE 2 OR 3 [facility] LUMBAR SPINE 2 OR 3 [facility] Department of Radiology [address] [place] [id number] Patient Name: PADMA GUEVARA : 1950 Sex: F Age: Race: White Pt. Location: Patient Status: Ordered Date: 07/24/2019 2:45:00 PM Completed Date: 07/24/2019 02:59 PM Requesting Provider: BLADE CARDONA Attending Provider: Report Copy To: Signs & Symptoms: M51.36 Other intervertebral disc degeneration, lumbar region I10 History: [place] Comments: , Views (X-RAY, LUMBAR SPINE): AP, Lateral, L5-S1 Spot , Weight Bearing?: Y , Views (X-RAY, LUMBAR SPINE): AP, Lateral, L5-S1 Spot , Weight Bearing?: Y , , , Ordering Provider - BLADE CARDONA MD , Exam: LUMBAR SPINE 2 OR 3 VWS LUMBAR SPINE 2 OR 3 VWS 07/24/2019 2:59 PM EDT SIGNS AND SYMPTOMS: M51.36 Other intervertebral disc degeneration, lumbar region I10 TECHNOLOGIST COMMENTS: History of lumbar spine surgery 02/12/2019. Ortho follow up. QUESTION FOR RADIOLOGIST: , Views (X-RAY, LUMBAR SPINE): AP, Lateral, L5-S1 Spot , Weight Bearing?: Y , Views (X-RAY, LUMBAR SPINE): AP, Lateral, L5-S1 Spot , Weight Bearing?: Y , , , ...More In Sending System PROTOCOL: AP, Lateral and L5-S1 spot film was obtained. COMPARISON: June 19, 2019 FINDINGS: Bones: Extensive posterior fusion and disc space with placement in satisfactory and unchanged alignment Disk spaces: As above Facet joints: Otherwise intact Alignment: Satisfactory and unchanged IMPRESSION: Extensive fusion and spacer placement along the lumbosacral spine similar to prior study in satisfactory alignment Electronically signed by:Harris Burgos. Transcribed by: [email or web address], User Resident: Electronically Signed by: HARRIS BRUGOS @ 07/24/2019 04:01 PM Normal [facility] Comment on above: Order Comment: , Vie ws (X-RAY, LUMBAR SPINE): AP, Lateral, L5-S1 Spot , Weight Bearing?: Y , Views (X-RAY, LUMBAR SPINE): AP, Lateral, L5-S1 Spot , Weight Bearing?: Y , , , Ordering Provider - BLADE CARDONA MD , XR HAND RIGHT (MIN 3 VIEWS)o n 07-20-2018 Protein mass conc EXAMINATION:3 XRAY VIEWS OF THE RIGHT HAND07/20/2018 5:22 pmCOMPARISON:None.HIS TORY:ORDERING SYSTEM PROVIDED HISTORY: traumaTECHNOLOGIST PROVIDED HISTORY:traumaOrderin g Physician Provided Reason for Exam: pain and lacerations to 2nd and3rd fingers of right handAcuity: AcuteType of Exam: InitialMechanism of Injury: fingers caught in car doorRelevant Medical/Surgical History: NAFINDINGS:No acute fracture or dislocation. The apparent soft tissue injury to the 2ndand 3rd fingers is not readily visible. No radiopaque foreign body.Degenerative changes most prevalent at the 1st MCP joint and 5th DIP joint.At the wrist, there are degenerative changes at the 1st carpal/metacarpaljoin t and triscaphe joint..IMPRESSION: No acute osseous abnormality of the right hand. No radiopaque foreign bodyin the 2nd and 3rd fingers.Interpreted by:LIZETTE Kiranigned by:Cherry Orourke MD07/20/18inal result Normal [facility] Vital Signs Date Time Vital Sign Value Performing Clinician Facility 11-28-2023 08:30-0500 Body height 149.86 cm Erica Gross Other [facility] Other 11-28-2023 08:30-0500 Body mass index (BMI) [Ratio] 18.78 kg/m2 Erica Gross Other [facility] Other 11-28-2023 08:30-0500 Body temperature 97.8 [degF] Erica Gross Other [facility] Other 11-28-2023 08:30-0500 Body weight 42.18 kg Erica Gross Other [facility] Other 11-28-2023 08:30-0500 Diastolic blood pressure 82 mm[Hg] Erica Gross Other [facility] Other 11-28-2023 08:30-0500 SaO2% (BldA) [Mass fraction] 97 % Erica Gross Other [facility] Other 11-28-2023 08:30-0500 Systolic blood pressure 146 mm[Hg] Erica Gross Other [facility] Other 10-25-2023 17:08-0500 Diastolic blood pressure 76 mm[Hg] II Eldon Toussaint Work Phone: [facility] 10-25-2023 17:08-0500 Heart rate 82 /min II Eldon Toussaint Work Phone: [facility] 10-25-2023 17:08-0500 Respiratory rate 16 /min II Eldon Toussaint Work Phone: [facility] 10-25-2023 17:08-0500 SaO2% (BldA) [Mass fraction] 97 % II Eldon Toussaint Work Phone: [facility] 10-25-2023 17:08-0500 Systolic blood pressure 142 mm[Hg] II Eldon Toussaint Work Phone: [facility] 10-25-2023 16:23-0500 Inhaled oxygen flow rate 8 L/min II Eldon Toussaint Work Phone: [facility] 10-25-2023 13:56-0500 Body height 149.86 cm II Eldon Toussaint Work Phone: [facility] 10-25-2023 13:56-0500 Body mass index (BMI) [Ratio] 18.6 kg/m2 II Eldon Toussaint Work Phone: [facility] 10-25-2023 13:56-0500 Body weight 41.73 kg II Eldon Toussaint Work Phone: [facility] 10-25-2023 12:42-0500 Body temperature 98 [degF] II Eldon Toussaint Work Phone: [facility] 10-19-2023 15:40-0500 Body height 149.86 cm Manan Kristina Other [employer] [facility] Other 10-19-2023 15:40-0500 Body mass index (BMI) [Ratio] 18.9 kg/m2 Manan Kristina Other [facility] [employer] [facility] Other 10-19-2023 15:40-0500 Body temperature 98.8 [degF] Manan Kristina Other [facility] Other 10-19-2023 15:40-0500 Body weight 42.46 kg Manan Kristina Other [facility] Other 10-19-2023 15:40-0500 Diastolic blood pressure 70 mm[Hg] Manan Kristina Other [facility] Other 10-19-2023 15:40-0500 Respiratory rate 18 /min Manan Kristina Other [facility] [employer] [facility] Other 10-19-2023 15:40-0500 SaO2% (BldA) [Mass fraction] 97 % Manan Kristina Other [facility] Other 10-19-2023 15:40-0500 Systolic blood pressure 128 mm[Hg] Manan Kristina Other [facility] Other 10-10-2023 09:00-0500 Body height 149.86 cm Erica Galvinflorian Other [facility] [employer] [facility] Other 10-10-2023 09:00-0500 Body mass index (BMI) [Ratio] 18.58 kg/m2 Erica Rutflorian Other [facility] Other 10-10-2023 09:00-0500 Body temperature 97.9 [degF] Erica Galvinflorian Other [facility] [employer] [facility] Other 10-10-2023 09:00-0500 Body weight 41.73 kg Erica Galvinflorian Other [facility] Other 10-10-2023 09:00-0500 Diastolic blood pressure 62 mm[Hg] Erica Gross Other [facility] [employer] [facility] Other 10-10-2023 09:00-0500 SaO2% (BldA) [Mass fraction] 98 % Erica Gross Other [facility] [employer] [facility] Other 10-10-2023 09:00-0500 Systolic blood pressure 140 mm[Hg] Erica Gross Other [facility] Other 09-07-2023 16:20-0400 Body height 149.86 cm Manan Kristina Other [facility] [employer] [facility] Other 09-07-2023 16:20-0400 Body mass index (BMI) [Ratio] 20.2 kg/m2 Manan Kristina Other [employer] [facility] Other 09-07-2023 16:20-0400 Body temperature 99 [degF] Manan Kristina Other [facility] [employer] [facility] Other 09-07-2023 16:20-0400 Body weight 45.36 kg Manan Kristina Other [employer] [facility] Other 09-07-2023 16:20-0400 Diastolic blood pressure 79 mm[Hg] Manan Kristina Other [facility] [employer] [facility] Other 09-07-2023 16:20-0400 Respiratory rate 18 /min Manan Kristina Other [facility] Other 09-07-2023 16:20-0400 SaO2% (BldA) [Mass fraction] 98 % Manan Kristina Other [facility] [employer] [facility] Other 09-07-2023 16:20-0400 Systolic blood pressure 136 mm[Hg] Manan Kristina Other [facility] Other 08-17-2023 16:00-0400 Body height 149.86 cm Manan Kristina Other [facility] Other 08-17-2023 16:00-0400 Body mass index (BMI) [Ratio] 18.18 kg/m2 Manan Kristina Other [facility] Other 08-17-2023 16:00-0400 Body temperature 96.9 [degF] Manan Kristina Other [facility] Other 08-17-2023 16:00-0400 Body weight 40.82 kg Manan Kristina Other [facility] Other 08-17-2023 16:00-0400 Diastolic blood pressure 83 mm[Hg] Manan Kristina Other [facility] Other 08-17-2023 16:00-0400 Respiratory rate 18 /min Manan Kristina Other [facility] [employer] [facility] Other 08-17-2023 16:00-0400 SaO2% (BldA) [Mass fraction] 100 % Manan Kristina Other [facility] Other 08-17-2023 16:00-0400 Systolic blood pressure 134 mm[Hg] Manan Kristina Other [employer] [facility] Other Encounters Encounter Date Encounter Type Care Provider Facility Start: 11-28-2023 End: 11-28-2023 ambulatory Erica Gross Other [facility] Other Start: 11-28-2023 Patient encounter procedure Erica Gross [facility] Start: 11-10-2023 End: 11-10-2023 ambulatory CROW WILEY Not Available Start: 10-25-2023 End: 10-25-2023 ambulatory Brodie Womack Facility:[facility] Start: 10-25-2023 End: 10-25-2023 Admission to same day surgery center II Eldon Toussaint Work Phone: [facility] [address] Start: 10-25-2023 End: 10-25-2023 ambulatory II Eldon Toussaint Work Phone: [facility] Work Phone: Start: 10-19-2023 End: 10-19-2023 ambulatory Manan Kristina Other [employer] Other Start: 10-19-2023 Office outpatient visit 25 minutes Manan Kristina [facility] Start: 10-11-2023 End: 10-11-2023 ambulatory Brodie Womack Other [employer] Other Start: 10-11-2023 Telephone encounter Brodie Womack [facility] Medical Assistant Start: 10-10-2023 FQ visit new patient Erica Lindsey barry [facility] Start: 10-10-2023 End: 10-10-2023 ambulatory Amnan Kristina Facility:[facility] Start: 10-10-2023 End: 10-10-2023 ambulatory II Eldon Toussaint Work Phone: [facility] Work Phone: Start: 10-10-2023 End: 10-10-2023 Patient encounter procedure II Eldon Toussaint Work Phone: [facility] [address] Work Phone: Start: 10-05-2023 End: 10-05-2023 ambulatory Manan Kristina Facility:[facility] Start: 10-05-2023 End: 10-05-2023 ambulatory II Eldon Toussaint Work Phone: [facility] Work Phone: Start: 10-05-2023 End: 10-05-2023 Patient encounter procedure II Eldon Toussaint Work Phone: [facility] [address] Work Phone: Start: 09-07-2023 End: 09-07-2023 ambulatory Mnaan Kristina Other [employer] Other Start: 09-07-2023 Office outpatient visit 15 minutes Manan Kristina [facility] Start: 09-07-2023 Telephone encounter Manan Kristina [facility] Start: 08-28-2023 End: 08-28-2023 ambulatory Manan Kristina Other [employer] Other Start: 08-28-2023 Telephone encounter Manan Kristina [facility] Start: 08-25-2023 End: 08-25-2023 ambulatory Manan Kristina Other [employer] Other Start: 08-25-2023 Telephone encounter Manan Kristina [facility] Start: 08-17-2023 End: 08-17-2023 ambulatory Manan Kristina Other [employer] Other Start: 08-17-2023 Office outpatient visit 25 minutes Manan Kristina [facility] [place] Start: 07-19-2023 End: 07-19-2023 ambulatory Manan Kristina Facility:[facility] Start: 07-19-2023 End: 07-19-2023 ambulatory II Eldon Toussaint Work Phone: [facility] Work Phone: Start: 07-19-2023 End: 07-19-2023 Patient encounter procedure II Eldon Toussaint Work Phone: [facility] [address] Work Phone: Start: 07-04-2023 End: 07-04-2023 ambulatory MILENA THOMPSON [facility] Start: 06-16-2023 End: 06-16-2023 ambulatory CARSON CORNELL [facility] Start: 02-07-2023 End: 02-07-2023 ambulatory Pal Frank Facility:[facility] Start: 02-07-2023 End: 02-07-2023 ambulatory PHYSICIAN NO [facility] Work Phone: Start: 02-07-2023 End: 02-07-2023 Patient encounter procedure PHYSICIAN NO [facility] [address] Work Phone: Start: 12-16-2022 End: 12-17-[address] SARAH MEEHAN Facility:[facility] Start: 09-01-2022 End: 09-02-2022 ambulatory TANYA TAYLOR Facility:[facility] Start: 07-27-2022 End: 07-27-2022 Patient encounter procedure PHYSICIAN NO [facility] [address] Start: 06-01-2022 End: 06-01-2022 Patient encounter procedure PHYSICIAN NO [facility] [address] Start: 08-27-2020 End: 08-27-2020 Patient encounter procedure [facility] Provider [facility] Start: 08-27-2020 Results Only [facility] Provider [facility] Start: 08-23-2020 End: 08-23-2020 Patient encounter procedure [facility] Provider [facility] Start: 08-23-2020 Results Only [facility] Provider [facility] Start: 08-21-2020 End: 08-21-2020 Patient encounter procedure [facility] Provider [facility] Start: 08-21-2020 Results Only [facility] Provider [facility] Start: 11-01-2019 End: 11-07-2019 Evaluation and management of inpatient ELDON TOUSSAINT Facility:[facility] Start: 07-20-2018 End: 07-20-2018 Emergency department patient visit SO WHARTON [facility] Procedures Date Procedure Procedure Detail Performing Clinician Start: 10-25-2023 Arteriovenous fistulization II Eldon Toussaint Work Phone: Start: 10-05-2023 US angiography II Tree Toussaint Work Phone: Start: 07-19-2023 Ultrasonography of b ilateral kidneys II Eldon Toussaint Work Phone: Start: 08-27-2020 CT OUTSIDE CD DICOM IMPORT [facility] Provider Start: 08-23-2020 CT OUTSIDE CD DICOM IMPORT [facility] Provider Start: 08-21-2020 CT OUTSIDE CD DICOM IMPORT [facility] Provider Start: 11-05-2019 MEASURE OF CARDIAC S AMPL \T\ PRESSURE, R HEART, PERC APPROACH EHAB Yesi DACOSTAHAWIvon Start: 07-20-2018 APPLY DRESSING SO BREAUX Start: 07-20-2018 Radex hand minimum 3 views SO WHARTON Start: 07-20-2018 PROVIDE SUTURE TRAY TO PATIENT BEDSIDE SO WHARTON Plan of Treatment Date Care Activity Detail Author Start: 10-25-2023 End: 10-25-2023 [facility] Start: 07-07-2020 Influenza vaccination INFLUENZA (#1) [facility] Start: 10-15-2017 DIABETES SCREEN DIABETES SCREEN [facility] Start: 10-15-2015 SERUM CREATININE SERUM CREATININE Cl [facility] Start: 10-14-2015 HEMOGLOBIN/HEMATOCRIT HEMOGLOBIN/HEM ATOCRIT [facility] Start: 2015 ADVANCE DIRECTIVE DISCUSSION ADVANCE DIRECTIVE DISCUSSION [facility] Start: 2015 BONE DENSITY BONE DENSITY [facility] Start: 2015 PNEUMOVAX AGE 65 AND OVER WITH 5YR LOOKBACK (#1) PNEUMOVAX AGE 65 AND OVER WITH 5YR LOOKBACK (#1) [facility] Start: 2000 SHINGRIX VACCINE (1 of 2) TUCKER GRIX VACCINE (1 of 2) [facility] Start: 2000 Tuberculosis screening COLOREC OSKAR CANCER SCREENING,SEE MODIFIER [facility] Start: 1995 LIPID SCREEN LIPID SCREEN [facility] Start: 1990 Mammography MAMMOGRAM [facility] Start: 1969 Urine microalbumin profile DTAP,TDAP,TD (1 - Tdap) [facility] Start: 1968 ANNUAL PCP TEAM CLERICAL CLERK GALILEO DISEASE VISIT ANNUAL PCP TEAM CHRONIC DISEASE VISIT [facility] Start: 1968 BP CONTROLLED (<130/80) BP CON TROLLED (<130/80) [facility] Start: 1968 HEPATITIS C SCREENING HEPATITIS C SC MARGARITA [facility] Patient referral [facility] Work Phone: Immunizations Immunization Date Immunization Notes Care Provider Yari uribe 12-22-2021 COVID-19 (Pfizer) RICHARD Toussaint Work Phone: [facility] 01-26-2021 COVID-19 (Pfizer) RICHARD Toussaint Work Phone: [facility] 01-04-2021 COVID-19 (Pfizer) II Eldon Toussaint Work Phone: [facility] 08-08-2020 Fluzone QIV High-Dos e 65YR+ PHYSICIAN ODILIA [facility] 10-12-2014 influenza, injectabl e, quadrivalent, preservative free [facility] Provider [facility] 10-12-2009 pneumococcal polysaccharide vaccine, 23 valent [facility] Provider [facility] Payers Date Payer Category Payer Medicare AETNA MEDICARE A ETNA MEDICARE PPO [id number] 2019-Present PPO [id number] 2018 Medicare [id number] 2014 Unknown [employer]AL INDEMNITY [id number] 2014-Present Indemnity [id number] 1959 Medicare [id number] 1959 Private Health Insurance [id number] 1950 Unknown [id number] 1950 Unknown [id number] 1950 Unknown [id number] 1950 Unknown [id number] Medicare Medicare [id number] Medicare [id number] Private Health Insurance [id number] Self-pay Self Pay [id number] Unknown [employer] BC/BS [id number] Unknown [id number] Social History Date Type Detail Facility Start: 10-15-2014 Tobacco smoking status AZIS Never smoker [facility] Start: 10-15-2014 Alcohol intake Current non-dr supervisor core drilling of alcohol (finding) [facility] Sex Assigned At Not on file [facility] Exposure to SARS-CoV-2 (event) Not sure [facility] Start: 08-27-2020 End: 10-25-2023 Tobacco smoking status AZIS Ex-smoker (finding) [facility] Start: 1950 Sex Assigned At Female F [facility] Sex Assigned At Sex Assigned At Bir th [employer] Other Goals Date Patient Goal Desired Activity /State Clinical Notes 09-01-2022 to 11-28-2023 Note Date & Type Note Facility 11-28-2023 Evaluation note Encounter Date Diagnosis Assessment Notes Nov, Chronic kidney disease (CKD), stage IV (severe) (ICD-10 - N18.4) This patient's right arm fistula is developing nicely. There are no concerning features on today's exam. Will bring her back in 6 to 8 weeks for a graft flow scan of the fistula to follow the maturation process. She is not currently on hemodialysis. She follows closely with nephrology on a routine basis. She knows that if she were to need dialysis in the near future she would need a catheter until her fistula is matured and ready. Nov, Marijuana smoker (ICD-10 - F12.90) [employer] Other 12-14-2023 Evaluation note* Encounter Date Diagnosis Assessment Notes Treatment Notes Treatment Clinical Notes Oct, Anemia of renal dise ase (ICD-10 - D63.1) Hemoglobin is within the goal but has adequate iron stores. She has been taking oral iron. She has a normal B12 and folate level. She has a mildly elevated free light chain ratio likely due to the CKD but has unremarkable SPEP, UPEP, serum and urine immunofixation. No need for PARUL. Oct, CKD (chronic kidney disease) stage 5, GFR less than 15 ml/min (ICD-10 - N18.5) She has longstanding CKD due to the longstanding hypertension and cardiorenal syndrome with baseline serum creatinine 3.3-3.5 mg/dL. Her EGFR is over estimation of renal function due to the poor muscle mass. Her renal US showed b/l renal cysts. She has mild uremic symptoms she currently does not have any indication to initiate urgent hemodialysis.. She is interested in HD and is scheduled to have AVF next week. I have advised the patient to call office if she develops persistent nausea vomiting sleep reversal or itching to initiate dialysis. 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 She appears to be euvolemic. Continue current medications. Oct, Secondary hyperparathyroidism (ICD-10 - N25.81) She has a secondary hyperparathyroidism due to the hypocalcemia and hyperphosphatemia. I have advised her to take the oral Tums every time she eats Oct, Gout (ICD-10 - M10.9) She cu rrently takes allopurinol for gout prophylaxis. She denies any recent gout flare. Continue follow-up with Dr. Frank. Oct, Hyperkalemia (ICD-10 - E87.5) She had hyperkalemia due to the CKD. Her potassium is back to normal with Lokelma. Continue low potassium diet and oral Lokelma. Oct, Metabolic acidemia (ICD-10 - E87.20) She had metabolic acidosis due to the advanced CKD. Continue oral sodium bicarbonate. [employer] Other 12-05-2023 Evaluation note* Encounter Date Diagnosis Assessment Notes Treatment Notes Treatment Clinical Notes Oct, Chronic kidney disease (CKD), stage IV (severe) (ICD-10 - N18.4) This patient is in need of dialysis access creation. We reviewed her vein mapping which shows right brachial artery and right upper arm basilic vein of adequate diameter for fistula creation. Her recent creatinine clearance was 13. She follows closely with nephrology for routine monitoring of her kidney function. We discussed AV fistula creation procedure, risk, benefits and all questions were addressed. We discussed both fistula as well as graft placement. Once again all questions were answered. We will get her on the schedule in the near future with plans for right brachiobasilic upper arm fistula creation. She understands that graft placement is also a possibility. She understands this is not always a one-step procedure. We will get her on the schedule in the near future. Consent was obtained. [employer] Other 11-02-2023 Evaluation note* Encounter Date Diagnosis Assessment Notes Treatment Notes Treatment Clinical Notes Sep, Anemia of renal dise ase (ICD-10 - D63.1) Hemoglobin is below the goal but has adequate iron stores. She has been taking oral iron. She has a normal B12 and folate level. She has a mildly elevated free light chain ratio likely due to the CKD but has unremarkable SPEP, UPEP, serum and urine immunofixation. We will start Retacrit after insurance approval. Sep, CKD (chronic kidney disease) stage 5, GFR less than 15 ml/min (ICD-10 - N18.5) She has longstanding CKD due to the longstanding hypertension and cardiorenal syndrome with baseline serum creatinine 3.1-3.3 mg/dL. Her EGFR is over estimation of renal function due to the poor muscle mass. Her renal US showed b/l renal cysts. She has mild uremic symptoms she currently does not have any indication to initiate urgent hemodialysis.. She is interested in HD so I have referred her to Vascular surgery I have advised the patient to follow with PCP for her left leg wound. 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 She appears to be euvolemic. Continue current medications. Sep, Secondary hyperparathyroidism (ICD-10 - N25.81) She has a secondary hyperparathyroidism due to the hypocalcemia and hyperphosphatemia. I have advised her to take the oral Tums every time she eats Sep, Gout (ICD-10 - M10.9) She cu rrently takes allopurinol for gout prophylaxis. She denies any recent gout flare. Continue follow-up with Dr. Frank. Sep, Hyperkalemia (ICD-10 - E87.5) She had hyperkalemia due to the CKD. Her potassium is back to normal with Lokelma. Continue low potassium diet and oral Lokelma. Sep, Metabolic acidemia (ICD-10 - E87.20) She had metabolic acidosis due to the advanced CKD. Continue oral sodium bicarbonate. [employer] Other 10-12-2023 Evaluation note* Encounter Date Diagnosis Assessment Notes Treatment Notes Treatment Clinical Notes Aug, CKD (chronic kidney disease) stage 4, GFR 15-29 ml/min (ICD-10 - N18.4) She has longstanding CKD due to the longstanding hypertension and cardiorenal syndrome with baseline serum creatinine 3.1-3.3 mg/dL. Her EGFR is over estimation of renal function due to the poor muscle mass. Her renal US showed b/l renal cysts. Is a mild uremic symptoms but does not want to initiate hemodialysis and would like to think about it. Aug, Anemia of renal dise ase (ICD-10 - D63.1) Hemoglobin is below the goal. She has a low iron despite taking oral iron. I have ordered the IV iron. She has a normal B12 and folate level. She has a mildly elevated free light chain ratio likely due to the CKD but has unremarkable SPEP, UPEP, serum and urine immunofixation. 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 She appears to be euvolemic. Continue current medications. Aug, Secondary hyperparathyroidism (ICD-10 - N25.81) She has a secondary hyperparathyroidism due to the CKD but her calcium, phosphorus and vitamin D are within the goal. Aug, Gout (ICD-10 - M10.9) She cu rrently takes allopurinol for gout prophylaxis. She denies any recent gout flare. Continue follow-up with Dr. Frank. Aug, Hyperkalemia (ICD-10 - E87.5) She has hyperkalemia due to the CKD and high potassium intake. I have advised a low potassium diet and provide information about it. I have also prescribed oral Lokelma. Aug, Metabolic acidemia (ICD-10 - E87.20) She has a metabolic acidosis due to the advanced CKD. I have prescribed oral sodium bicarbonate. [employer] Other 08-11-2023 NoteCardiology Follow Up Progress Note Chief Complaint: chest pain, shortness of breath HPI: Padma Guevara is a 72 y.o. female with a past medical history including HTN, parkinsons, arthritis with degenerative joint disease, tobacco abuse quit 2019, COPD , HTN, pacemaker, CKD, and HFpEF. She presents to Cardiology clinic for follow up. She has not been seen in Cardiology since 07/2020. Patient complains of intermittent chest pain. She is mostly wheelchair-bound, but she reports chest pain both at rest and with exertion. Chest pain does not seem to be worsened with exertion. She endorses some shortness of breath, but she states that she has chronic shortness of breath due to her COPD. Endorses occasional lower extremity edema. She denies any orthopnea or paroxysmal nocturnal dyspnea. No near-syncope or syncope. Note: Patient had a cardiac cath 11/29/17 negative for obstructive CAD (mild Cx disease). Cardiology ROS: GENERAL: Denies fever, chills, night sweats, weight loss. HEENT: Denies changes in vision, photophobia, changes in hearing, epistaxis, oral bleeding. CARDIOVASCULAR: As per HPI RESPIRATORY: Denies SOB, coughing, wheezing GI: Denies abdominal pain, nausea/vomiting, heartburn, melena/hematochezia. RENAL: Denies dysuria, hematuria, flank pain. MSK: Denies muscle weakness/pain, arthralgias/joint pain. NEUROLOGIC: Denies LOC, weakness, numbness, headaches. SKIN: Denies abnormal rashes or bleeding. PSYCH: Denies significant anxiety, depression, sleep disturbances. Medications Current Outpatient Medications on File Prior to Visit Medication Sig Dispense Refill allopurinol (Zyloprim) 100 mg tablet Take 2 tablets every day by oral route. amitriptyline (Elavil) 10 mg tablet Take 10 mg by mouth in the morning. buPROPion XL (Wellbutrin XL) 150 mg 24 hr tablet Take by oral route for 90 days. busPIRone (Buspar) 10 mg tablet Take 1 tablet twice a day by oral route for 90 days. carbidopa-levodopa (Sinemet) 25-100 mg tablet Take 1 tablet 3 times a day by oral route for 30 days. carvedilol (Coreg) 25 mg tablet Take 1 tablet twice a day by oral route. cloNIDine (Catapres) 0.1 mg tablet Take 1 tablet by mouth in the morning, at noon, and at bedtime. colchicine 0.6 mg tablet Take 0.6 mg by mouth in the morning. esomeprazole (NexIUM) [address] capsule Take 20 mg by mouth in the morning. ferrous sulfate 325 (65 Fe) MG tablet folic acid (Folvite) 1 mg tablet Take 1 tablet by mouth in the morning. hydrALAZINE (Apresoline) 25 mg tablet Take 25 mg by mouth 1 (one) time each day. HYDROcodone-acetaminophen (Jarbidge) 10-325 mg tablet take 2 tablets by mouth every 6 hours if needed -30 DAY SUPPLY ipratropium (Atrovent HFA) 17 mcg/actuation inhaler Inhale by inhalation route as directed for 30 days. metoclopramide (Reglan) 5 mg tablet take 1 tablet by mouth twice a day before meals mirtazapine (Remeron) 15 mg tablet Take 15 mg by mouth. nitroglycerin (Nitrostat) 0.[address] 1 tablet under the tongue if needed every 5 minutes for enriqueta... (REFER TO PRESCRIPTION NOTES). predniSONE (Deltasone) 5 mg tablet take 1 tablet by mouth every other day ( MAY take 1 tablet once daily for FLARES ) rOPINIRole XL (Requip XL) 4 mg 24 hr tablet Take 1 tablet 3 times a day by oral route for 30 days. traZODone (Desyrel) 50 mg tablet Take 50 mg by mouth at bedtime. No current facility-administered medications on file prior to visit. Allergies Baclofen, Coconut flavor, Gabapentin, Iodine, and Sulfamethoxazole-trimethoprim Physical Exam VITAL SIGNS: BP (!) 193/104 Pulse 87 Ht 1.499 m (4' 11 ) Wt 43.1 kg (95 lb) SpO2 98% BMI 19.19 kg/m??? Constitutional: Well developed, Well nourished, No acute distress, Non-toxic appearance. HENT: Normocephalic, Atraumatic, Bilateral external ears have normal appearance, Nose appears normal, nares are patent. Patient appears to be chronically ill. Eyes: PERRLA, EOMI, Conjunctiva normal, No discharge. Neck: Normal range of motion, No tenderness, Supple, No stridor. No cervical lymphadenopathy noted. Cardiovascular: Normal heart rate, Normal rhythm, No murmurs, No rubs, No gallops. Thorax & Lungs: Normal breath sounds, No respiratory distress, No wheezing, No chest tenderness to palpation. Abdomen: Bowel sounds normal, Soft, Nontender, No masses, No pulsatile masses. Skin: Warm, Dry, No erythema, No rash. Back: No tenderness, No CVA tenderness. Extremities: Intact distal pulses, No edema, No tenderness, No cyanosis, No clubbing. Musculoskeletal: Grossly normal strength in extremities Neurologic: Alert & oriented x 3, no gross focal neurological deficits Psychiatric: Affect normal, Judgment normal, Mood normal. Impression: -Chest pain, atypical in nature -Mild non obstructive CAD -HFpEF, appears euvolemic -Hypertensive urgency Plan: -Patient's blood pressure significantly elevated in clinic today. She is unsure what blood press (more content not included)...[facility]08-11-2023 NotePatient here for 2.5 year follow up. She used to see Dr. Carnes at [facility]. She is c/o chest pain, palpitations, and SOB w/wo exertion. Says symptoms have been present for about 6-8 months. She is not completely sure of her current medications. PCP did ECG a few months ago in the office she says.[facility]02-10-2023 NotePROCEDURE: XR FEMUR RT HISTORY: Pain of right thigh COMPARISON: None. FINDINGS: BONES:Narrowing of the joint spaces of the knee joint, with [id number] articulation involving the medial compartment and moderate narrowing of lateral compartment. No significant narrowing of the hip joint. No fracture, dislocation, bone lesion. SOFT TISSUES:No visible soft tissue swelling. EFFUSION:None visible. OTHER: Moderate atherosclerotic disease. IMPRESSION: 1. No acute bone abnormality. 2. Marked degenerative joint disease of the knee. Electronically authenticated by: SARAH MEEHAN Date: 2022-12-16 10:38[facility]10-27-2022 NotePROCEDURE: XR HIP LT 2 3V W PELVIS COMPARISON: None. HISTORY: Pain of left hip joint FINDINGS: BONES:There is asymmetric lymph node in the appearance of the left femur in relation to the right this likely is related to positioning and projection rather than an acute fracture. Mild bilateral hip osteoarthropathy. Moderate bilateral enthesopathic spurring of the greater trochanters. Severe degenerative changes of the spine with lumbosacral fusion and bone graft. Bilateral sacroiliac joint sclerosis SOFT TISSUES:Negative. No visible soft tissue swelling. EFFUSION:None visible. OTHER: Negative. IMPRESSION: Limited nonstandard projections with no definite fracture Electronically authenticated by: CHERRY LAU Date: 2022-09-01 19:19[facility] noteNo assessment information availableCl[facility] Work Phone: Evaluation noteNo [employer] Other History general Narrative - Reported* Type Description Date Medical History FIBROMYALGIA Medical History PACEMAKER Medical History CANCER (SKIN, UTERINE, BREAST) Medical History CHF Medical History RHEUMATOID ARTHRITIS Medical History OSTEOARTHRITIS Medical History GOUT Medical History RA Surgical History CERVICAL FUSION/DISCECTOMY Surgical History LUMBAR FUSION/REPAIR Surgical History POLYPS NOSE/EAR AND CHEEKS Surgical History TONSILLECTOMY Surgical History CHOLECYSTECTOMY Surgical History HYSTERECTOMY Surgical History APPENDECTOMY Surgical History SKIN CANCER REMOVAL Surgical History BUNION SURGERY BILATERAL FEET Surgical History RIGHT CARPAL TUNNEL RELEASE Surgical History BILATERAL MASTECTOMIES Hospitalization History 3 VAGINAL BIRTHS Hospitalization History SEE ABOVE [employer] Other Summary Purpose Family History Relationship Condition Age at Onset Recorded Date/T elian family member Coronary artery disease Unknown Advance Directives Advance Directive Response Recorded Date/ Time Advance Directives No August 23, 2017 8:07am Advance Directive Response Recorded Date/ Time Advance Directives No August 23, 2017 7:07am Hospital Course Note MR#: [id number] [facility] Pt. Name: Padma Guevara Admitted: 11/01/2019 Discharged: 11/07/2019 Date of : 1950 Physician: Rex Mckee MD DISCHARGE SUMMARY DISCHARGING PHYSICIAN: Rex Mckee M.D. CONSULTANTS: 1. Cardiology. 2. Gastroenterology. 3. PMNR. DISCHARGE DIAGNOSES: 1. Non-ST segment elevation myocardial infarction type 2. 2. Coronary artery disease without prior PCI. 3. Chest pain. 4. Coffee-grounds emesis. 5. Acute kidney injury on chronic kidney disease stage 4. 6. Deep vein thrombosis after surgery in February. 7. Chronic pain syndrome. 8. Hypertensive urgency. 9. Leukocytosis. 10. Left foot chronic osteomyelitis. 11. Chronic gout. 12. Rheumatoid arthritis. 13. Parkinson's disease. 14. Restless legs syndrome. 15. Fibromyalgia. 16. Major depressive disorder. 17. Hypokalemia. 18. Obstructive sleep apnea. 19. Active smoker. 20. Iron- deficiency anemia. 21. Symptomatic bradycardia, status post permanent pacemaker with replacement last y (more content not included)... Note CT OUTSIDE CD DICOM IMPORT - NBNR (08/27/2020) Specimen Narrative Performed At Images were obtained outside of [facility] DIVISION OF RADIOLOGY Procedure Note Radiology, Oru In - 08/30/2020 8:02 PM EDT Images were obtained outside of [facility] Performing Organization Address City/[facility]/ZIP Code Phone Number [place] [address] OUTSIDE CD DICOM IMPORT - NBNR (08/21/2020) Specimen Narrative Performed At Images were obtained outside of [facility] DIVISION OF RADIOLOGY Procedure Note Radiology, Oru In - 08/30/2020 8:02 PM EDT Images were obtained outside of [facility] Performing Organization Address City/[facility]/ZIP Code Phone Number [place] [address] OUTSIDE CD DICOM IMPORT - NBNR (08/23/2020) Specimen Narrative Performed At Images were obtained outside of [facility] DIVISION OF RADIOLOGY Procedure Note Radiology, Oru In - 08/30/2020 8:02 PM EDT Images were obtained outside of [facility] [place] [address] OUTSIDE CD DICOM IMPORT - NBNR (08/23/2020) Specimen Narrative Performed At Images were obtained outside of [facility] DIVISION OF RADIOLOGY Procedure Note Radiology, Oru In - 08/30/2020 8:02 PM EDT Images were obtained outside of [facility] Performing Organization Address City/[facility]/ZIP Code Phone Number [place] [address] OUTSIDE CD DICOM IMPORT - NBNR (08/21/2020) Specimen Narrative Performed At Images were obtained outside of [facility] DIVISION OF RADIOLOGY Procedure Note Radiology, Oru In - 08/30/2020 8:02 PM EDT Images were obtained outside of [facility] [place] [address] OUTSIDE CD DICOM IMPORT - NBNR (08/27/2020) Specimen Narrative Performed At Images were obtained outside of [facility] DIVISION OF RADIOLOGY Procedure Note Radiology, Oru In - 08/30/2020 8:02 PM EDT Images were obtained outside of [facility] [place] [address] Chief Complaint and Reason for Visit Chief Complaint M06.09 Z79.899 Chief Complaint Chronic Kidney Disea se Chief Complaint Chronic Kidney Disea se N18.5 D63.1 I12.9 N25.81 E87.5 E87.20 M10.9 Chief Complaint Chronic Kidney Disea se N18.5 D63.1 I12.9 N25.81 E87.5 E87.20 M10.9 Chronic Kidney Disease Chief Complaint N18.5 D63.1 I12.9 N2 5.81 E87.5 E87.20 M10.9 Chronic Kidney Disease ESRD Additional Source Comments INFORMATION SOURCE (unrecogn ized section and content) DATE CREATED AUTHOR 08/16/2018 [facility] DATE CREATED AUTHOR AUTHOR'S ORGANIZ ATION 07/15/2020 [facility] DATE CREATED AUTHOR AUTHOR'S ORGANIZ ATION 12/23/2022 [facility] DATE CREATED AUTHOR AUTHOR'S ORGANIZ ATION 07/05/2023 [facility] DATE CREATED AUTHOR AUTHOR'S ORGANIZ ATION 10/28/2023 [facility] DATE CREATED AUTHOR AUTHOR'S ORGANIZ ATION 11/11/2023 [facility] EPIC Source Comments (unrecognize d section and content) In the event this informatio n is protected by the Federal Confidentiality of Alcohol and Drug Abuse Patient Records regulations: The Federal rules restrict any use of the information to criminally investigate or prosecute any alcohol or drug abuse patient.[facility] the event this information is protected by the Federal Confidentiality of Alcohol and Drug Abuse Patient Records regulations: The Federal rules restrict any use of the information to criminally investigate or prosecute any alcohol or drug abuse patient.[facility] the event this information is protected by the Federal Confidentiality of Alcohol and Drug Abuse Patient Records regulations: The Federal rules restrict any use of the information to criminally investigate or prosecute any alcohol or drug abuse patient.[facility] Care Teams (unrecognized sec tion and content) Team Status: Active Member Role Status Dates PHYSICIAN NO FAMILY Primary Care Provider Active Team Status: Inactive Member Role Status Dates PHYSICIAN NO FAMILY Primary Care Provider Active Pal Frank MD Attending Provider Active Team Status: Active Member Role Status Dates Eldon Toussaint II MD Primary Care Provider Active Team Status: Inactive Member Role Status Dates Manan Acevedo MD Attending Provider Active Eldon Toussaint II MD Primary Care Provider Active Team Status: Inactive Member Role Status Dates Eldon Toussaint II MD Primary Care Provider Active Manan Acevedo MD Attending Provider Active Team Status: Inactive Member Role Status Dates Eldon Toussaint II MD Primary Care Provider Active Brodie Womack MD Attending Provider Active Goals (unrecognized section and content) Goals may be documented in a n alternate sectionGoals may be documented in an alternate sectionGoals may be documented in an alternate sectionGoals may be documented in an alternate sectionNo InformationNo InformationNo InformationNo InformationNo InformationGoals may be documented in an alternate sectionGoals may be documented in an alternate sectionNo InformationNo InformationNo InformationNo InformationNo Information REASON FOR VISIT (unrecogniz ed section and content) CKD and HTNINFUSIONINFUSION ORDERCKD and AnemiaNo InformationReferred by Dr. Acevedo for AV Fistula; vein mapping done [facility] 10/05Vascular surgery consultNo InformationCKD and Anemia4 week follow up; AVF creation FOR RECORDS PERTAINING TO PATIENTS WHO ARE OR HAVE BEEN ENROLLED IN A CHEMICAL DEPENDENCY/SUBSTANCEABUSE PROGRAM, SOME INFORMATION MAY BE OMITTED. This clinical summary was aggregated from multiple sources. Caution should be exercised in using it in the provision of clinical care. This summary normalizes information from multiple sources, and as a consequence, information in this document may materially change the coding, format and clinical context of patient data. In addition, data may be omitted in some cases. CLINICAL DECISIONS SHOULD BE BASED ON THE PRIMARY CLINICAL RECORDS. [employer] [facility]. provides no warranty or guarantee of the accuracy or completeness of information in this document.
[2023-11-29 15:54] LABS: Hematocrit 26.9 % (36.0-48.0); Hemoglobin 8.4 g/dL (12.0-16.0); Mean Corpuscular HGB Conc 31.2 g/dL (29.9-35.2); Mean Corpuscular Hemoglobin 31.2 pg (26.7-34.0); Mean Platelet Volume 10.1 fL (9.5-13.5); Platelet Count 159 10^3/uL (150-450); Red Blood Count 2.69 10^6/uL (4.20-5.40); Red Cell Distribution Width 13.3 % (11.0-15.0); White Blood Count 4.5 10^3/uL (4.0-11.0)
[2023-11-29 16:19] LABS: Albumin Level 3.2 g/dL (3.4-5.0); Anion Gap 15.6; BUN Creatinine Ratio 18.2; Calcium 8.3 mg/dL (8.5-10.1); Carbon Dioxide 24.1 mmol/L (21.0-32.0); Chloride 107 mmol/L (98-107); Estimated GFR (African America 17 (>=60); Estimated GFR (Non-African Ame 14 (>=60); Glucose 104 mg/dL (74-106); Magnesium 1.8 mg/dL (1.8-2.4); Phosphorus 5.3 mg/dL (2.6-4.7); Potassium 5.7 mmol/L (3.5-5.1); Sodium 141 mmol/L (136-145); Uric Acid 5.5 mg/dL (2.6-6.0)
[2023-11-29 17:13] LABS: Percent Iron Saturation 24.3 %
[2023-12-01 11:09] LABS: PTH, Intact 146 pg/mL (15-65)
== END 2023-11-29 15:04 | disposition home or self-care (01) ==
LOC: LAB 15:06
PROVIDERS: PCP Internal Medicine; Visit Provider Internal Medicine
DX: I12.9 Hypertensive chronic kidney disease with stage 1 through stage 4 chronic kidney disease, or unspecified chronic kidney disease (principal); N18.5 Chronic kidney disease, stage 5; D63.1 Anemia in chronic kidney disease; N25.81 Secondary hyperparathyroidism of renal origin; M10.9 Gout, unspecified; E87.5 Hyperkalemia; E87.20 Acidosis, unspecified
CPT/HCPCS: 36415; 80069; 82306; 82728; 83540; 83550; 83735; 83970; 84550; 85027

== ENCOUNTER 2024-01-25 14:21 | Outpatient (OUT) | payer MEDICARE, SELFPAY ==
--- NOTE | 2024-01-25 15:20 | CA_ITS ---
Patient Name: CRISTINA MOORE MR#: [id number] : 1950 Exam Date: 01/25/2024 Ordering Doctor: CARSON CORNELL M.D. ECHOCARDIOGRAM REPORT PROCEDURE: CA ECHO DOPPLER COMPLETE INDICATIONS: Shortness of breath COMPARISON: None. DESCRIPTION: COMPLETE ECHOCARDIOGRAM Real-time transthoracic echocardiography with 2D, M-mode, spectral and color flow Doppler performed. QUALITY: Technical quality was good. LEFT VENTRICLE: Normal chamber size. Moderate concentric left ventricular hypertrophy. Abnormal septal motion possibly due to pacemaker. Global left ventricular systolic function is normal. LV EF: Estimated left ventricular ejection fraction is 55-60% DIASTOLIC: Grade I diastolic dysfunction. ATRIAL SEPTUM: LEFT ATRIUM: Moderate dilatation. RIGHT ATRIUM: Moderate dilatation. Pacer wire present. RIGHT VENTRICLE: Normal chamber size. Normal right ventricular systolic function. Pacer wire present. TRICUSPID VALVE: Normal mobility and thickness. No stenosis with moderate regurgitation. Mild pulmonary hypertension. RVSP 35 mmHg MITRAL VALVE: Normal mobility and thickness. No evidence of mitral valve stenosis. Mild mitral annular calcification. Mild mitral regurgitation. AORTIC VALVE: Normal trileaflet appearance. No visible sclerosis. Normal leaflet mobility. No evidence of aortic valve stenosis. DVI 0.6No aortic regurgitation. AORTIC ROOT: Normal diameter and appearance. PULMONIC VALVE: Normal thickness and mobility. Normal with Trivial regurgitation. PERICARDIUM: No evidence of pericardial effusion. IVC: Collapses with inspirations. Normal size. PLEURA: CONCLUSION: 1. Moderate concentric left ventricular hypertrophy with normal systolic function. LVEF is estimated at 55 to 60%. 2. Normal right ventricular size and systolic function. 3. Mild diastolic dysfunction. 4. Moderate biatrial dilatation. 5. Moderate tricuspid regurgitation. 6. Mild mitral regurgitation. 7. Mildly elevated right-sided pressures. Adult Echocardiography Procedure Report Left Ventricle LVEDD (3.7 - 5.6 cm): 3.64 cm LVESD (2.2 - 4.0 cm): 3.31 cm LVIVS thickness (0.6 - 1.2 cm): 1.52 cm LVPW thickness (0.5 - 1.0 cm): 1.30 cm e': 0.07 m/s E - e': 11.91 LVOT Max Gradient: 3.09 mm[Hg], 3.09 mm[Hg] LVOT Area (cm2): 0.88 m/s Peak Velocity (LVOT): 0.88 m/s, 0.88 m/s Mean Velocity (LVOT): 0.66 m/s LVOT Diameter 1.86 cm Left Ventricular Ejection Fraction: 55-60% Left Atrium LA Volume Index (2D A2C): 51.27 ml/m2 Left Atrium Systolic Dimension: 4.09 cm Mitral Valve MV E to A Ratio: 0.82 Mitral Valve A-Wave Peak Velocity: 1.08 m/s Mitral Valve E-Wave Peak Velocity: 0.88 m/s Right Ventricle RV Internal Diastolic Dimension: 3.49 cm Aorta AO Root Diam: 3.32 cm Aortic Valve AoV Area (Peak Deandre): 1.74 cm2, 1.74 cm2 AoV Area (VTI): 1.79 cm2, 1.86 cm2 Peak Velocity(Antegrade Flow): 1.37 m/s Peak Gradient(Antegrade Flow): 7.50 mm[Hg] Mean Velocity(Antegrade Flow): 0.94 m/s Mean Gradient(Antegrade Flow): 4.00 mm[Hg] Velocity Time Integral: 28.61 cm Tricuspid Valve Peak Velocity (Regurgitant Flow): 2.51 m/s, 2.80 m/s, 2.88 m/s, 2.73 m/s, 2.84 m/s Pulmonic Valve Mean Gradient: 1.95 mm[Hg] Mean Velocity: 0.65 m/s Peak Velocity: 0.94 m/s, 0.90 m/s Peak Gradient: 3.22 mm[Hg], 3.50 mm[Hg] Right Atrium Right Atrium Systolic Pressure: 34.75 ml, 34.75 ml Dictated by: Christophe Mabry M.D. on 01/26/2024 at 18:07 Approved by: Christophe Mabry M.D. on 01/26/2024 at 18:13
== END 2024-01-25 14:22 | disposition home or self-care (01) ==
PROVIDERS: PCP Internal Medicine; Visit Provider Internal Medicine Cardiovascular Disease
DX: R06.02 Shortness of breath (principal)
CPT/HCPCS: 93306

== ENCOUNTER 2024-01-31 14:22 | Outpatient (OUT) | payer MEDICARE, SELFPAY ==
[2024-01-31 14:58] LABS: Hematocrit 37.4 % (36.0-48.0); Hemoglobin 11.8 g/dL (12.0-16.0); Mean Corpuscular HGB Conc 31.6 g/dL (29.9-35.2); Mean Corpuscular Hemoglobin 30.9 pg (26.7-34.0); Mean Corpuscular Volume 97.9 fL (81.0-99.0); Mean Platelet Volume 9.7 fL (9.5-13.5); Platelet Count 184 10^3/uL (150-450); Red Blood Count 3.82 10^6/uL (4.20-5.40); Red Cell Distribution Width 13.5 % (11.0-15.0); White Blood Count 4.2 10^3/uL (4.0-11.0)
[2024-01-31 15:32] LABS: Albumin Level 3.5 g/dL (3.4-5.0); Anion Gap 13.8; BUN Creatinine Ratio 18.1; Calcium 8.7 mg/dL (8.5-10.1); Carbon Dioxide 27.3 mmol/L (21.0-32.0); Chloride 103 mmol/L (98-107); Estimated GFR (African America 14 (>=60); Estimated GFR (Non-African Ame 11 (>=60); Glucose 129 mg/dL (74-106); Magnesium 1.9 mg/dL (1.8-2.4); Phosphorus 4.8 mg/dL (2.6-4.7); Potassium 4.1 mmol/L (3.5-5.1); Sodium 140 mmol/L (136-145); Uric Acid 5.2 mg/dL (2.6-6.0)
[2024-01-31 15:59] LABS: Percent Iron Saturation 58.1 %
[2024-02-01 13:09] LABS: PTH, Intact 116 pg/mL (15-65)
== END 2024-01-31 14:23 | disposition home or self-care (01) ==
LOC: LAB 14:24
PROVIDERS: PCP Internal Medicine; Visit Provider Internal Medicine
DX: I45.9 Conduction disorder, unspecified (principal); I12.0 Hypertensive chronic kidney disease with stage 5 chronic kidney disease or end stage renal disease; N18.5 Chronic kidney disease, stage 5; N18.9 Chronic kidney disease, unspecified; D63.1 Anemia in chronic kidney disease; N25.81 Secondary hyperparathyroidism of renal origin; I16.0 Hypertensive urgency
CPT/HCPCS: 36415; 80069; 82306; 82728; 83540; 83550; 83735; 83970; 84550; 85027

== ENCOUNTER 2024-06-28 09:07 | Emergency (ER) | payer MEDICARE, SELFPAY ==
[2024-06-28] VITALS (54 sets, daily range): BP systolic 89–179; BP diastolic 53–94; PULSE 80–107; TEMP 36.8; O2SAT 74–100; BMI 21.9
--- NOTE | 2024-06-28 09:13 | ECG_ITS ---
The [facility] Test Date: 2024-06-28 Pat Name: CRISTINA MOORE Department: Room: - Gender: Female Manager Android: : 1950 Requested By: CHRISTA BARBOUR Order Number: [id number] Reading MD: SYL TODD Measurements Intervals [place] Rate: 82 P: 51 IL: 168 QRS: 36 QRSD: 98 T: 67 QT: 384 QTc: 422 Interpretive Statements 24381 Electronic atrial pacemaker 9120 atypical ECG Electronically Signed On 06-28-2024 18:09:36 EDT by SYL TODD
[2024-06-28] MEDS: DEXTROSE 50 %-WATER 25 GM/50 ML SYRINGE IV (09:22)
[2024-06-28 09:23] LABS: Glucometer 71 mg/dL (74-106)
[2024-06-28 09:33] LABS: Basophils Absolute Auto 0.1 10^3/uL (0.0-0.1); Basophils Percent Auto 1.1 % (0.2-2.0); Eosinophils Absolute Auto 0.3 10^3/uL (0.0-0.7); Eosinophils Percent Auto 4.1 % (0.9-7.0); Hematocrit 40.6 % (36.0-48.0); Hemoglobin 12.7 g/dL (12.0-16.0); Immature Granulocytes Abs Auto 0.02 10^3/uL (0.00-0.03); Immature Granulocytes Pct Auto 0.3 % (0.0-0.5); Lymphocytes Absolute Auto 1.1 10^3/uL (1.2-3.8); Mean Corpuscular HGB Conc 31.3 g/dL (29.9-35.2); Mean Corpuscular Hemoglobin 30.4 pg (26.7-34.0); Mean Corpuscular Volume 97.1 fL (81.0-99.0); Mean Platelet Volume 9.1 fL (9.5-13.5); Monocytes Absolute Auto 0.7 10^3/uL (0.3-0.8); Monocytes Percent Auto 10.4 % (1.7-12.0); Neutrophils Absolute Auto 4.8 10^3/uL (1.4-6.5); Neutrophils Percent Auto 69.1 % (43.0-75.0); Platelet Count 169 10^3/uL (150-450); Red Blood Count 4.18 10^6/uL (4.20-5.40)
--- NOTE | 2024-06-28 09:35 | XR_ITS ---
The [address] [address] Patient Name: CRISTINA MOORE MRN: [id number] date: 1950 Sex: F Assigned Patient Location: ED.MAIN Current Patient Location: ED.MAIN Accession/Order Number: [id number] Exam Date: 06/28/2024 09:32 Report Date: 06/28/2024 09:55 At the request of: DANIELLE JONES Procedure: XR chest 1V EXAMINATION: XR chest 1V HISTORY: ams COMPARISON: XR chest 1123 FINDINGS: LUNGS: Underexpanded lungs with trace amount stranding within lateral right lung base. VASCULATURE: No increased pulmonary vasculature. PLEURA: No pneumothorax, effusion, or pleural thickening. CARDIAC: No cardiomegaly or cardiac silhouette abnormality. Stable cardiac pacer. MEDIASTINUM: No visible mass or adenopathy. BONES: No fracture or visible bone lesion. OTHER: Right jugular central venous catheter with tip projecting over atrium. XR/XR chest 1V IMPRESSION: 1. Low lung volume examination with trace amount of right basilar atelectasis or infiltrates. Electronically authenticated by: SARAH MEEHAN Date: 06/28/2024 09:55
[2024-06-28 09:48] LABS: Alanine Aminotransferase 18 U/L (14-59); Albumin Level 3.2 g/dL (3.4-5.0); Alkaline Phosphatase 131 U/L (46-116); Anion Gap 10.9; Aspartate Amino Transferase 27 U/L (15-37); BUN Creatinine Ratio 9.4; Bilirubin Total 0.5 mg/dL (0.2-1.0); Calcium 8.6 mg/dL (8.5-10.1); Chloride 96 mmol/L (98-107); Estimated GFR (African America 20 (>=60); Estimated GFR (Non-African Ame 16 (>=60); Ethanol <3 mg/dL; Globulin 3.2 g/dL; Glucose 81 mg/dL (74-106); Magnesium 1.5 mg/dL (1.8-2.4); Potassium 4.9 mmol/L (3.5-5.1); Sodium 132 mmol/L (136-145); Total Protein 6.4 g/dL (6.4-8.2)
--- NOTE | 2024-06-28 09:57 | ED.AMS1 ---
HPI - Altered Mental Status General Chief Complaint: Altered Mental Status Stated Complaint: GENERAL WEAKNESS/CONFUSION Time Seen by Provider: 06/28/24 09:12 Source: medical record and other Source comment: ems Mode of arrival: ambulance Limitations: altered mental status History of Present Illness HPI narrative: The patient is coming to the ER after she had a dialysis session during which she had some jerking movement in her upper extremity according to the caregiver that called the ER for signout, the patient had this jerking movements sometimes before but it was happening while she was awake, and all of a sudden she yelled and passed out for few seconds during which her blood pressure was elevated at 211 systolic, the patient then woke up with a normal blood pressure of 130 systolic and since then she has been agitated The patient in the ER was not able to provide us with any history she was trying to get out of the bed and she was not following command initially, after a while she started complaining of lower back pain Related Data Home Medications ?Medication ?Instructions ?Recorded ?Confirmed allopurinol 100 mg tablet 100 mg PO DAILY 06/16/23 06/28/24 buspirone 10 mg tablet 10 mg PO BID PRN anxiety 06/16/23 06/28/24 carvedilol 25 mg tablet 25 mg PO Q12H 06/16/23 06/16/23 doxazosin 1 mg tablet 1 mg PO DAILY 06/16/23 06/28/24 ferrous sulfate 325 mg (65 mg 325 mg PO DAILY 06/16/23 06/28/24 iron) tablet (FeroSul) folic acid 1 mg tablet 1 mg PO DAILY 06/16/23 06/28/24 hydralazine 25 mg tablet 25 mg PO Q8H 06/16/23 06/16/23 hydroxychloroquine 200 mg tablet 200 mg PO DAILY 06/16/23 06/16/23 loratadine 10 mg tablet 10 mg PO DAILY 06/16/23 06/28/24 megestrol 400 mg/10 mL (40 mg/mL) 400 mg PO DAILY 06/16/23 06/16/23 oral suspension mirtazapine 15 mg tablet 15 mg PO DAILY 06/16/23 06/28/24 montelukast 10 mg tablet 10 mg PO DAILY 06/16/23 06/28/24 nitroglycerin 0.3 mg sublingual 0.3 mg sublingual Q5M PRN chest 06/16/23 06/28/24 tablet pain ropinirole 4 mg tablet 4 mg PO DAILY 06/16/23 06/28/24 trazodone 50 mg tablet 50 mg PO BEDTIME 06/16/23 06/28/24 venlafaxine 37.5 mg 37.5 mg PO DAILY 06/16/23 06/28/24 capsule,extended release 24 hr darbepoetin lorene-albumin 40 mcg/mL 40 mcg subcut .weekly- mon06/28/24 06/28/24 in albumin injection furosemide 40 mg tablet 40 mg PO DAILY 06/28/24 06/28/24 hydroxyzine HCl 25 mg tablet 25 mg PO Q8H PRN itching 06/28/24 06/28/24 midodrine 5 mg tablet 5 mg PO TID 06/28/24 06/28/24 oxycodone 10 mg tablet 10 mg PO Q6H PRN pain 06/28/24 06/28/24 promethazine 12.5 mg tablet 12.5 mg PO Q12H PRN nausea and 06/28/24 06/28/24 vomiting Allergies Allergy/AdvReac Type Severity Reaction Status Date / Time trimethoprim Allergy Unknown Verified 06/28/24 12:11 gabapentin AdvReac Intermediate Hives Verified 06/28/24 12:11 sulfacetamide AdvReac Mild Rash Verified 06/28/24 12:11 [From Sulfamide] Review of Systems ROS Status of ROS 10 or more systems reviewed and unremarkable except as noted in history and below PFSH PFSH Social History Smoking status: Former smoker Exam Narrative Exam Narrative: Nurses notes and vital signs reviewed and patient is not hypoxic. General: Well-appearing and in no apparent distress. Skin: Warm, dry, no pallor noted. No rash. Head: Normocephalic, atraumatic. Neck: Supple, non-tender. Eye: Pupils are equal, round and EOMI. No scleral icterus. Ears, Nose, Mouth, and Throat: TM are clear, no nasal mucosal hypertrophy. Oral mucosa is moist, no posterior oropharynx erythema, uvula is mid-line Cardiovascular: Regular Rate and Rhythm without murmur, gallop or rub. Respiratory: No accessory muscle use or respiratory distress. Lungs are clear to auscultation, no wheezing, rales or rhonchi Chest Wall: no tenderness Back: No midline thoracic or lumbar vertebral tenderness. No CVA tenderness Musculoskeletal: normal ROM, no calf or popliteal tenderness there is chronic skin changes of the lower and upper extremities of the skin and the patient have a Gus catheter in the right upper chest, GI: Abdomen is soft, non-distended. Normal bowel sounds. No masses appreciated. No tenderness to palpation. No rebound, guarding, or rigidity noted. Neurological: A&O x1 No cranial nerve dysfunction observed. No truncal ataxia. Moves all extremities Constitutional Vital Signs, click to edit/add: Last Vital Signs Temp 98.3 F 06/28/24 09:31 Pulse 91 H 06/28/24 11:40 Resp 18 06/28/24 11:40 BP 150/85 H 06/28/24 13:25 Pulse Ox 97 06/28/24 12:15 O2 Del Method Room Air 06/28/24 09:12 Course Vital Signs Vital signs: Vital Signs Pulse Rate 82 06/28/24 09:12 Respiratory Rate 20 06/28/24 09:12 Blood Pressure 132/94 H 06/28/24 09:12 Pulse Oximetry 98 06/28/24 09:12 Oxygen Delivery Method Room Air 06/28/24 09:12 Temperature 98.3 F 06/28/24 09:31 Pulse Rate 91 H 06/28/24 11:40 Respiratory Rate 18 06/28/24 11:40 Blood Pressure 150/85 H 06/28/24 13:25 Pulse Oximetry 97 06/28/24 12:15 Oxygen Delivery Method Room Air 06/28/24 09:12 MDM - Altered Mental Status MDM Narrative Medical decision making narrative: EKG showing paced rhythm with a heart rate of 82 The patient blood sugar initially was 71 and she was provided with dextrose she was more cooperative after that and she did explain that she have back pain that I provided her with fentanyl due to her history of chronic kidney disease The patient still continues to have twitching like movement of the left upper extremity although mentally improved According to the this all started this morning, and it was concerning that the patient is having seizure-like activity specially with ultimately status and the fact that she had an incident when she passed out in the dialysis center for few seconds during which her blood pressure was 210/112 The patient right now was provided with Ativan to obtain the CT head and the CT head did not show any acute pathology I discussed the case with Dr. Barton and [facility] and right now he recommended transferring the patient for seizure-like activity workup Lab Data Labs: Lab Results 06/28/24 06/28/24 06/28/24 Range/Units 09:13 09:20 13:43 WBC 7.0 (4.0-11.0) 10^3/uL RBC 4.18 L (4.20-5.40) 10^6/uL Hgb 12.7 (12.0-16.0) g/dL Hct 40.6 (36.0-48.0) % MCV 97.1 (81.0-99.0) fL MCH 30.4 (26.7-34.0) pg MCHC 31.3 (29.9-35.2) g/dL RDW 15.0 (11.0-15.0) % Plt Count 169 (150-450) 10^3/uL MPV 9.1 L (9.5-13.5) fL Neut % (Auto) 69.1 (43.0-75.0) % Lymph % (Auto) 15.0 L (20.5-60.0) % [place] % (Auto) 10.4 (1.7-12.0) % Eos % (Auto) 4.1 (0.9-7.0) % Baso % (Auto) 1.1 (0.2-2.0) % Neut # (Auto) 4.8 (1.4-6.5) 10^3/uL Lymph # (Auto) 1.1 L (1.2-3.8) 10^3/uL [place] # (Auto) 0.7 (0.3-0.8) 10^3/uL Eos # (Auto) 0.3 (0.0-0.7) 10^3/uL Baso # (Auto) 0.1 (0.0-0.1) 10^3/uL Abs Immat Gran (auto) 0.02 (0.00-0.03) 10^3/uL Imm/Tot Granulo (auto) 0.3 (0.0-0.5) % Sodium 132 L (136-145) mmol/L Potassium 4.9 (3.5-5.1) mmol/L Chloride 96 L (98-107) mmol/L Carbon Dioxide 30.0 (21.0-32.0) mmol/L Anion Gap 10.9 BUN 27.0 H (7.0-18.0) mg/dL Creatinine 2.87 H (0.55-1.02) mg/dL Est GFR ( Amer) 20 L (>=60) Est GFR (Non-Af Amer) 16 L (>=60) BUN/Creatinine Ratio 9.4 Glucose 81 (74-106) mg/dL Calcium 8.6 (8.5-10.1) mg/dL Magnesium 1.5 L (1.8-2.4) mg/dL Total Bilirubin 0.5 (0.2-1.0) mg/dL AST 27 (15-37) U/L ALT 18 (14-59) U/L Alkaline Phosphatase 131 H (46-116) U/L Total Protein 6.4 (6.4-8.2) g/dL Albumin 3.2 L (3.4-5.0) g/dL Globulin 3.2 g/dL Albumin/Globulin Ratio 1.0 Ethanol Quant <3 mg/dL POC Glucose 71 L 87 (74-106) mg/dL Discharge Plan Discharge Chief Complaint: Altered Mental Status Clinical Impression: Seizure-like activity Patient Disposition: [facility] Time of Disposition Decision: 14:01
[2024-06-28] MEDS: FENTANYL CITRATE/PF 100 MCG/2 ML VIAL 25 MCG IV (10:05)
--- NOTE | 2024-06-28 11:00 | CT_ITS ---
The [address] [address] Patient Name: CRISTINA MOORE MRN: [id number] date: 1950 Sex: F Assigned Patient Location: ER Current Patient Location: ER Accession/Order Number: [id number] Exam Date: 06/28/2024 11:30 Report Date: 06/28/2024 11:55 At the request of: DANIELLE JONES Procedure: CT head/brain wo con EXAM: CT head/brain wo con HISTORY: ams COMPARISON: None. TECHNIQUE: Axial soft tissue and bone windows through the calvarium with coronal and sagittal reformats. CT dose reduction technique was used including Automated Exposure Control. . Findings: The paranasal sinuses and mastoid air cells are well aerated. No air-fluid levels. No extra-axial fluid collection. No intra-axial or extra-axial bleed. No mass effect. The jovel-white matter differentiation is preserved. There are couple subtle low-attenuation lesions nonspecific but commonly attributed to chronic small vessel ischemic disease. The brain parenchymal volume is mildly reduced yet likely age-appropriate. The ventricles are nondilated. The basal cisterns are patent. The craniovertebral junction is unremarkable. CT/CT head/brain wo con IMPRESSION: 1. No acute intracranial abnormality. MRI is more sensitive for the evaluation of the kidneys. 2. Senescent changes. Electronically authenticated by: REA MONTERO Date: 06/28/2024 11:55
[2024-06-28] MEDS: LORAZEPAM 2 MG/ML VIAL 0.5 MG IV (11:31)
--- NOTE | 2024-06-28 12:51 | PC.NURSE ---
pt asking to use bathrrom. assisted onto bedside commode. pt unable to pee at this time, assisted back into bed. straight cath completed.
[2024-06-28] MEDS: MAGNESIUM SULFATE/D5W 1 GM/100 ML PREMIX IV (13:24)
[2024-06-28] MEDS: HYDRALAZINE HCL 25 MG TABLET PO (13:25)
[2024-06-28] MEDS: CARVEDILOL 25 MG TABLET PO (13:30)
[2024-06-28 13:44] LABS: Glucometer 87 mg/dL (74-106)
== END 2024-06-28 16:53 | disposition short-term general hospital (02) ==
PROVIDERS: Emergency Provider Emergency Medicine; PCP Internal Medicine
DX: R56.9 Unspecified convulsions (principal); Z99.2 Dependence on renal dialysis; Z87.891 Personal history of nicotine dependence; N18.9 Chronic kidney disease, unspecified; Z79.899 Other long term (current) drug therapy
CPT/HCPCS: 36415; 70450; 71045; 80053; 80320; 82948; 83735; 85025; 93005; 96365; 96375; 99285; J2060; J3010; J3475

== ENCOUNTER 2024-07-31 11:18 | Outpatient (REF) | payer MEDICARE, SELFPAY ==
[2024-07-31 13:02] LABS: Bilirubin Urine NEGATIVE (NEGATIVE); Blood Urine NEGATIVE (NEGATIVE); Clarity Urine CLEAR (CLEAR); Color Urine LT. YELLOW (YELLOW); Glucose Urine UA NEGATIVE (NEGATIVE); Ketones Urine NEGATIVE (NEGATIVE); Leukocyte Esterase Urine NEGATIVE (NEGATIVE); Nitrite Urine NEGATIVE (NEGATIVE); Protein Urine 100 mg/dL (NEG/TRACE); Specific Gravity Urine 1.015 (1.005-1.025); Urobilinogen Urine 0.2 EU/dL (0.2-1.0); pH Urine 7.5 (5.0-9.0)
== END 2024-07-31 11:19 | disposition home or self-care (01) ==
LOC: LAB 11:18
PROVIDERS: PCP Internal Medicine; Visit Provider Internal Medicine
DX: N39.0 Urinary tract infection, site not specified (principal)
CPT/HCPCS: 81003; 87086

== ENCOUNTER 2024-09-30 06:08 | Emergency (ER) | payer MEDICARE, SELFPAY ==
[2024-09-30] VITALS (66 sets, daily range): BP systolic 68–146; BP diastolic 32–93; PULSE 79–107; TEMP 35.9; O2SAT 89–99
--- NOTE | 2024-09-30 06:30 | ED_ITS ---
HPI HPI - Fall General Chief Complaint: Fall Stated Complaint: FALL Time Seen by Provider: 09/30/24 06:14 Source: family Mode of arrival: ambulance History of Present Illness HPI Narrative: family are poor historians. Patient in renal failure and is a dialysis patient. Last dialysis this past Monday and is suppose to have dialysis today. Patient is DNRCCA. Patient and her do not sleep in the same room. Per her she fell out of bed. She then called out to him . He found her awake on the floor. she has 2 ecchymotic contusions to her face which family states is new. She has chronic twitching of her feet. Squad was called and apparently when they were transporting her to the cart to be transferred she had a seizure. Her trunk with occ jerk and family states this is new. Related Data Home Medications ?Medication ?Instructions ?Recorded ?Confirmed buspirone 10 mg tablet 10 mg PO BID PRN anxiety 06/16/23 06/28/24 doxazosin 1 mg tablet 1 mg PO DAILY 06/16/23 06/28/24 folic acid 1 mg tablet 1 mg PO DAILY 06/16/23 06/28/24 loratadine 10 mg tablet 10 mg PO DAILY 06/16/23 06/28/24 mirtazapine 15 mg tablet 15 mg PO DAILY 06/16/23 06/28/24 montelukast 10 mg tablet 10 mg PO DAILY 06/16/23 06/28/24 nitroglycerin 0.3 mg sublingual 0.3 mg sublingual Q5M PRN chest 06/16/23 06/28/24 tablet pain ropinirole 4 mg tablet 4 mg PO DAILY 06/16/23 06/28/24 venlafaxine 37.5 mg 37.5 mg PO DAILY 06/16/23 06/28/24 capsule,extended release 24 hr furosemide 40 mg tablet 40 mg PO DAILY 06/28/24 06/28/24 midodrine 5 mg tablet 5 mg PO TID 06/28/24 06/28/24 oxycodone 10 mg tablet 10 mg PO Q6H PRN pain 06/28/24 06/28/24 promethazine 12.5 mg tablet 12.5 mg PO Q12H PRN nausea and 06/28/24 06/28/24 vomiting Aranesp (in albumin) 09/30/24 amlodipine 10 mg tablet mg 09/30/24 atorvastatin 40 mg tablet mg 09/30/24 doxycycline hyclate 100 mg capsule mg 09/30/24 esomeprazole magnesium 20 mg mg 09/30/24 capsule,delayed release zempler 09/30/24 Allergies Allergy/AdvReac Type Severity Reaction Status Date / Time trimethoprim Allergy Unknown Verified 09/30/24 06:30 gabapentin AdvReac Intermediate Hives Verified 09/30/24 06:30 sulfacetamide (From AdvReac Mild Rash Verified 09/30/24 06:30 Sulfamide) Opioid HPI Opioid Management Most Recent Pain and Opioid Data: No Data to Display Review of Systems ROS Status of ROS unobtainable due to mental status PFSH PFS Social History Smoking status: Former smoker Exam Constitutional Vital Signs, click to edit/add: Last Vital Signs Temp 96.7 F L 09/30/24 06:13 Pulse 79 09/30/24 06:13 Resp 18 09/30/24 06:13 BP 114/91 09/30/24 06:13 Pulse Ox 99 09/30/24 06:13 O2 Del Method Room Air 09/30/24 06:13 Other: emaciated appearing patient . Has bruise right forehead and left zygoma area. Also focal contusion med parietal scalp. Eye Common normals: PERRL and EOMs intact bilaterally Neck & C-Spine Common normals: supple Other: C-T-L spines nontender Chest Common normals: inspection of chest normal and palpation of chest normal Other: subclavian central line right chest Respiratory Common normals: normal respiratory effort, no retractions, no use of accessory muscles and clear to auscultation bilaterally Cardio Common normals: regular rate, regular rhythm, S1 normal heart sound and S2 normal heart sound GI Common normals: Normal to inspection, nondistended, normoactive bowel sounds pre sent, soft to palpation and non-tender Extremity Other: old bruising bilat upper and lower extremities. Moving all extremities normally Neuro Common normals: CN's II-XII intact bilaterally and moves all extremities Sensorium/orientation: awake, alert and oriented to person Other: constant twitching of her feet. Occ jerks of her turnk Course Vital Signs Vital signs: Vital Signs Temperature 96.7 F L 09/30/24 06:13 Pulse Rate 79 09/30/24 06:13 Respiratory Rate 18 09/30/24 06:13 Blood Pressure 114/91 09/30/24 06:13 Pulse Oximetry 99 09/30/24 06:13 Oxygen Delivery Method Room Air 09/30/24 06:13 Temperature 96.7 F L 09/30/24 06:13 Pulse Rate 79 09/30/24 06:13 Respiratory Rate 18 09/30/24 06:13 Blood Pressure 114/91 09/30/24 06:13 Pulse Oximetry 99 09/30/24 06:13 Oxygen Delivery Method Room Air 09/30/24 06:13 MDM - Fall MDM Narrative Medical decision making narrative: chronically ill patient . Renal failure patient. DNRCCA. Family providing history and they are poor historians. Patient recognizes her family and knows their names. She is not knowledgeable of what year it is or where she is. Does know her birthday she has several contusion bruises to her face which family states are new from last PM. No tenderness of her C-T-L spines. The twitching of her feet is chronic per family. The occ jerks or her trunk is new and she reportedly had a seizure per Squad and has no history of seizure disorder. Labs and diagnostic studies ordered and care will be transferred to the [facility] physician Discharge Plan Discharge Chief Complaint: Fall Clinical Impression: Head injury, Contusion of face, Seizure, Renal failure, chronic Patient Disposition: Still a Patient Prescriptions / Home Meds: No Action allopurinol 100 mg tablet 100 mg PO DAILY buspirone 10 mg tablet 10 mg PO BID PRN (Reason: anxiety) carvedilol 25 mg tablet 25 mg PO Q12H doxazosin 1 mg tablet 1 mg PO DAILY ferrous sulfate [FeroSul] 325 mg (65 mg iron) tablet 325 mg PO DAILY folic acid 1 mg tablet 1 mg PO DAILY hydralazine 25 mg tablet 25 mg PO Q8H hydroxychloroquine 200 mg tablet 200 mg PO DAILY megestrol 400 mg/10 mL (40 mg/mL) suspension 400 mg PO DAILY loratadine 10 mg tablet 10 mg PO DAILY mirtazapine 15 mg tablet 15 mg PO DAILY montelukast 10 mg tablet 10 mg PO DAILY nitroglycerin 0.3 mg tablet, sublingual 0.3 mg sublingual Q5M PRN (Reason: chest pain) ropinirole 4 mg tablet 4 mg PO DAILY venlafaxine 37.5 mg capsule,extended release 24hr 37.5 mg PO DAILY trazodone 50 mg tablet 50 mg PO BEDTIME darbepoetin lorene-albumin 40 mcg/mL solution 40 mcg subcut .weekly- mon furosemide 40 mg tablet 40 mg PO DAILY hydroxyzine HCl 25 mg tablet 25 mg PO Q8H PRN (Reason: itching) midodrine 5 mg tablet 5 mg PO TID oxycodone 10 mg tablet 10 mg PO Q6H PRN (Reason: pain) promethazine 12.5 mg tablet 12.5 mg PO Q12H PRN (Reason: nausea and vomiting) Print Language: Taiwanese Referrals: CHRISTA BARBOUR [Primary Care Provider] - 1 week
--- NOTE | 2024-09-30 06:42 | CT_ITS ---
The [address] [address] Patient Name: CRISTINA MOORE MRN: [id number] date: 1950 Sex: F Assigned Patient Location: ER Current Patient Location: ER Accession/Order Number: [id number] Exam Date: 09/30/2024 08:20 Report Date: 09/30/2024 08:59 At the request of: AMERICO CAMARGO Procedure: CT facial bones wo con EXAMINATION: CT head/brain wo con, CT facial bones wo con HISTORY: fall , left side facial bruising, involuntary movements COMPARISON: CT head 06/28/2024 TECHNIQUE: Axial CT images were obtained without IV contrast. Dose reduction techniques were achieved by using automated exposure control and/or adjustment of mA and/or kV according to patient size and/or use of iterative reconstruction technique. FINDINGS: BRAIN: No edema, hemorrhage, mass, acute infarction, or inappropriate atrophy. CSF SPACES: No hydrocephalus, subarachnoid hemorrhage, or mass. Appropriate for age. SKULL: No fracture, mass, or other significant visible lesion. SINUSES: No significant mucosal thickening or fluid. ORBITS: No appreciable abnormality. OTHER: Left infraorbital subcutaneous hematoma; no intraorbital involvement. Subcutaneous bruising/hematoma over right forehead, right frontal bone near the vertex, and right parietal bone. CT/CT facial bones wo con IMPRESSION: 1. No intracranial hemorrhage or acute abnormality the brain. Age consistent mild atrophy. 2. No fracture of the calvarium or facial bones. 3. Subcutaneous hematoma left infraorbital, superior lateral right frontal and superior lateral right parietal regions. No radiopaque foreign body. Electronically authenticated by: SARAH MEEHAN Date: 09/30/2024 08:59
--- NOTE | 2024-09-30 06:42 | ECG_ITS ---
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
--- NOTE | 2024-09-30 06:42 | XR_ITS ---
The [address] [address] Patient Name: CRISTINA MOORE MRN: [id number] date: 1950 Sex: F Assigned Patient Location: ER Current Patient Location: ER Accession/Order Number: [id number] Exam Date: 09/30/2024 08:20 Report Date: 09/30/2024 09:01 At the request of: AMERICO CAMARGO Procedure: XR chest 1V EXAMINATION: XR chest 1V HISTORY: fall COMPARISON: XR chest 06/28/2024 FINDINGS: LUNGS: Chronic marked elevation left diaphragm. No appreciable infiltrates. VASCULATURE: No increased pulmonary vasculature. PLEURA: No pneumothorax, effusion, or pleural thickening. CARDIAC: Stable cardiac pacer. Likely borderline cardiomegaly. MEDIASTINUM: No visible mass or adenopathy. BONES: No fracture or visible bone lesion. OTHER: Right jugular central venous catheter with tip projecting over right atrium. XR/XR chest 1V IMPRESSION: 1. No acute cardiopulmonary process. Stable chest. Electronically authenticated by: SARAH MEEHAN Date: 09/30/2024 09:01
--- NOTE | 2024-09-30 06:42 | CT_ITS ---
The [place] [id number] Patient Name: CRISTINA MOORE MRN: [id number] date: 1950 Sex: F Assigned Patient Location: ER Current Patient Location: ER Accession/Order Number: [id number] Exam Date: 09/30/2024 08:20 Report Date: 09/30/2024 09:10 At the request of: AMERICO CAMARGO Procedure: CT cervical spine wo con EXAMINATION: CT cervical spine wo con HISTORY: fall COMPARISON: No relevant comparison available. TECHNIQUE: Axial, Coronal, and Sagittal images were created without IV contrast. Dose reduction techniques were achieved by using automated exposure control and/or adjustment of mA and/or kV according to patient size and/or use of iterative reconstruction technique. FINDINGS: VERTEBRAL BODIES: Minimal grade 1 anterior listhesis of C5 on C6. No compression fracture or bone lesion. FACET JOINTS: Abnormal widening, 4 mm of the left C3-4 facet joint. Multilevel marked degenerative facet arthropathy. No fracture. DISCS: Moderate narrowing C5-6,. Marked narrowing C6-7. CENTRAL CANAL: No spinal stenosis or evidence of hemorrhage. PARASPINAL AREA: 2.3 cm mass versus complex cyst within anterior lower right neck, possibly arising from the right thyroid lobe. CT/CT cervical spine wo con IMPRESSION: 1. New abnormal widening of the left C3-4 facet joint suggesting disruption. There is no offset or abnormal alignment of the vertebral body. No visible fracture of the posterior elements. 2. Multilevel degenerative facet arthropathy and degenerative disc disease. Electronically authenticated by: SARAH MEEHAN Date: 09/30/2024 09:10
--- NOTE | 2024-09-30 06:42 | CT_ITS ---
The [address] [address] Patient Name: CRISTINA MOORE MRN: [id number] date: 1950 Sex: F Assigned Patient Location: ER Current Patient Location: ER Accession/Order Number: [id number] Exam Date: 09/30/2024 08:20 Report Date: 09/30/2024 08:59 At the request of: AMERICO CAMARGO Procedure: CT head/brain wo con EXAMINATION: CT head/brain wo con, CT facial bones wo con HISTORY: fall , left side facial bruising, involuntary movements COMPARISON: CT head 06/28/2024 TECHNIQUE: Axial CT images were obtained without IV contrast. Dose reduction techniques were achieved by using automated exposure control and/or adjustment of mA and/or kV according to patient size and/or use of iterative reconstruction technique. FINDINGS: BRAIN: No edema, hemorrhage, mass, acute infarction, or inappropriate atrophy. CSF SPACES: No hydrocephalus, subarachnoid hemorrhage, or mass. Appropriate for age. SKULL: No fracture, mass, or other significant visible lesion. SINUSES: No significant mucosal thickening or fluid. ORBITS: No appreciable abnormality. OTHER: Left infraorbital subcutaneous hematoma; no intraorbital involvement. Subcutaneous bruising/hematoma over right forehead, right frontal bone near the vertex, and right parietal bone. CT/CT head/brain wo con IMPRESSION: 1. No intracranial hemorrhage or acute abnormality the brain. Age consistent mild atrophy. 2. No fracture of the calvarium or facial bones. 3. Subcutaneous hematoma left infraorbital, superior lateral right frontal and superior lateral right parietal regions. No radiopaque foreign body. Electronically authenticated by: SARAH MEEHAN Date: 09/30/2024 08:59
[2024-09-30 07:18] LABS: Basophils Absolute Auto 0.1 10^3/uL (0.0-0.1); Basophils Percent Auto 0.6 % (0.2-2.0); Eosinophils Absolute Auto 0.1 10^3/uL (0.0-0.7); Eosinophils Percent Auto 0.4 % (0.9-7.0); Hematocrit 31.6 % (36.0-48.0); Hemoglobin 10.2 g/dL (12.0-16.0); Immature Granulocytes Abs Auto 0.04 10^3/uL (0.00-0.03); Immature Granulocytes Pct Auto 0.3 % (0.0-0.5); Lymphocytes Absolute Auto 0.8 10^3/uL (1.2-3.8); Lymphocytes Percent Auto 6.5 % (20.5-60.0); Mean Corpuscular HGB Conc 32.3 g/dL (29.9-35.2); Mean Platelet Volume 9.5 fL (9.5-13.5); Monocytes Absolute Auto 0.7 10^3/uL (0.3-0.8); Monocytes Percent Auto 5.7 % (1.7-12.0); Neutrophils Absolute Auto 10.1 10^3/uL (1.4-6.5); Neutrophils Percent Auto 86.5 % (43.0-75.0); Platelet Count 354 10^3/uL (150-450); Red Blood Count 3.29 10^6/uL (4.20-5.40); Red Cell Distribution Width 15.1 % (11.0-15.0); White Blood Count 11.6 10^3/uL (4.0-11.0)
[2024-09-30] MEDS: MORPHINE SULFATE 4 MG/ML VIAL IV (07:28)
[2024-09-30 07:29] LABS: Anion Gap 22.6; BUN Creatinine Ratio 14.1; Calcium 8.7 mg/dL (8.5-10.1); Carbon Dioxide 22.8 mmol/L (21.0-32.0); Chloride 97 mmol/L (98-107); Estimated GFR (African America 10 (>=60 mL/min/1.73m^2); Estimated GFR (Non-African Ame 8 (>=60 mL/min/1.73m^2); Glucose 168 mg/dL (74-106); Magnesium 1.6 mg/dL (1.8-2.4); Potassium 4.4 mmol/L (3.5-5.1); Sodium 138 mmol/L (136-145)
[2024-09-30 07:55] LABS: PCO2 VBG 34.5 mmHg (40.0-52.0); pH VBG 7.414 (7.330-7.430)
--- NOTE | 2024-09-30 09:11 | PC.NURSE ---
Call placed to dialysis center to inquire about today's missed dialysis appointment. Patient can go to dialysis after discharge from ER. Patient and daughter aware.
== END 2024-09-30 10:00 | disposition home or self-care (01) ==
PROVIDERS: Emergency Medicine; Emergency Provider Internal Medicine; PCP Internal Medicine
DX: S00.83XA Contusion of other part of head, initial encounter (principal); S00.03XA Contusion of scalp, initial encounter; W06.XXXA Fall from bed, initial encounter; Z66 Do not resuscitate; N18.6 End stage renal disease; Z99.2 Dependence on renal dialysis; R56.9 Unspecified convulsions; Z87.891 Personal history of nicotine dependence; S09.90XA Unspecified injury of head, initial encounter
CPT/HCPCS: 36415; 70450; 70486; 71045; 72125; 80048; 82800; 83735; 85025; 93005; 96374; 99285; J2270

== ENCOUNTER 2024-11-29 10:06 | Outpatient (OUT) | payer MEDICARE, SELFPAY ==
[2024-11-29 10:31] LABS: Basophils Absolute Auto 0.1 10^3/uL (0.0-0.1); Basophils Percent Auto 1.1 % (0.2-2.0); Eosinophils Absolute Auto 0.1 10^3/uL (0.0-0.7); Eosinophils Percent Auto 2.2 % (0.9-7.0); Hematocrit 36.1 % (36.0-48.0); Hemoglobin 11.5 g/dL (12.0-16.0); Immature Granulocytes Abs Auto 0.01 10^3/uL (0.00-0.03); Immature Granulocytes Pct Auto 0.2 % (0.0-0.5); Lymphocytes Absolute Auto 0.7 10^3/uL (1.2-3.8); Lymphocytes Percent Auto 15.1 % (20.5-60.0); Mean Corpuscular HGB Conc 31.9 g/dL (29.9-35.2); Mean Corpuscular Hemoglobin 29.5 pg (26.7-34.0); Mean Corpuscular Volume 92.6 fL (81.0-99.0); Mean Platelet Volume 9.3 fL (9.5-13.5); Monocytes Absolute Auto 0.5 10^3/uL (0.3-0.8); Monocytes Percent Auto 10.7 % (1.7-12.0); Neutrophils Absolute Auto 3.2 10^3/uL (1.4-6.5); Neutrophils Percent Auto 70.7 % (43.0-75.0); Platelet Count 209 10^3/uL (150-450); Red Cell Distribution Width 13.4 % (11.0-15.0); White Blood Count 4.5 10^3/uL (4.0-11.0)
[2024-11-29 10:35] LABS: Anion Gap 7.1; BUN Creatinine Ratio 3.4; Calcium 8.8 mg/dL (8.5-10.1); Carbon Dioxide 33.9 mmol/L (21.0-32.0); Chloride 95 mmol/L (98-107); Estimated GFR (African America 34 (>=60 mL/min/1.73m^2); Estimated GFR (Non-African Ame 28 (>=60 mL/min/1.73m^2); Glucose 98 mg/dL (74-106); Sodium 133 mmol/L (136-145)
== END 2024-11-29 10:07 | disposition home or self-care (01) ==
LOC: LAB 10:07
PROVIDERS: PCP Internal Medicine
DX: N19 Unspecified kidney failure (principal)
CPT/HCPCS: 36415; 80048; 85025